=== PATIENT | male | born 1935 | race Caucasian/White ===

== ENCOUNTER → 2017-12-09 11:30 | Outpatient (CLI) | payer MEDICARE, SELFPAY ==
[2017-12-09 13:09] LABS: Free T3, Triiodothyronine Free 3.87 pg/mL (2.77-5.27)
[2017-12-09 13:23] LABS: Thyroid Stimulating Hormone 3.06 uIU/mL (0.47-4.68)
== END ==
PROVIDERS: Family Provider Physician Assistant; PCP Physician Assistant; Visit Provider Physician Assistant
DX: E03.9 Hypothyroidism, unspecified (principal)
CPT/HCPCS: 36415; 84443; 84481

== ENCOUNTER → 2018-02-23 13:15 | Outpatient (CLI) | payer MEDICARE, SELFPAY ==
[2018-02-23 13:58] LABS: Add Manual Diff / Slide Review NO; Eosinophils Percent Auto 2.2 % (2-4); Hemoglobin 15.3 g/dL (13.5-17.5); Lymphocytes Percent Auto 21.5 % (25-40); Mean Corpuscular HGB Conc 34.1 % (30-36); Mean Corpuscular Hemoglobin 32.5 PG (26-34); Mean Corpuscular Volume 95.3 fL (80-100); Monocytes Percent Auto 8.3 % (3-14); Neutrophils Absolute Auto 3900 /uL (3000-5900); Platelet Count 203 X10^3/uL (150-400); Red Blood Cell Count 4.72 X10^6/uL (4.5-5.9); Red Cell Distribution Width 13.7 % (11.6-14.8); White Blood Cell Count 5.8 X10^3/uL (4.5-11.0)
[2018-02-23 14:19] LABS: Alanine Aminotransferase 24 IU/L (21-72); Albumin 4.2 g/dL (3.5-5.0); Albumin Globulin Ratio 1.6 (1.0-2.8); Alkaline Phosphatase 47 U/L (38-126); Aspartate Aminotransferase 28 IU/L (17-59); Bilirubin Total 0.8 mg/dL (0.2-1.3); Blood Urea Nitrogen 27 mg/dL (9-20); Calcium 8.9 mg/dL (8.4-10.2); Carbon Dioxide 30 mmol/L (22-32); Chloride 104 mmol/L (98-107); Estimated Glomerular Filt Rate > 60.0 mL/min (>60); Globulin 2.6 g/dL (1.7-4.1); Glucose 93 mg/dL (80-110); HEMOLYSIS 17 (0-50); Potassium 4.6 mmol/L (3.4-5.1); Sodium 143 mmol/L (137-145); Total Protein 6.8 g/dL (6.3-8.2)
[2018-02-23 14:50] LABS: TSH w/ Reflex to FT4 2.49 uIU/mL (0.47-4.68)
== END ==
PROVIDERS: PCP Physician Assistant
DX: R25.8 Other abnormal involuntary movements (principal)
CPT/HCPCS: 36415; 80053; 84443; 85025

== ENCOUNTER 2018-03-18 19:34 | Emergency (ER) | payer MEDICARE, SELFPAY ==
[2018-03-18 19:35] VITALS: BP 199/69; PULSE 72; RESP 18; TEMP 36.7; O2SAT 98; BMI 22.2
--- NOTE | 2018-03-18 19:58 | DI.CT.S_ITS ---
PROCEDURE: CT HEAD/BRAIN WO CON INDICATIONS: left visual field cut TECHNIQUE: Noncontrast 4.5 mm thick angled axial sections acquired from the foramen magnum to the vertex, with coronal and sagittal reformats. For radiation dose reduction, the following was used: automated exposure control, adjustment of mA and/or kV according to patient size. COMPARISON: None. FINDINGS: Image quality: Excellent. CSF spaces: Basal cisterns are patent. No extra-axial fluid collections. The ventricles are symmetric in size and shape. There is [id number] cerebral volume loss, with resultant ventricular and sulcal prominence. Brain: No intracranial hemorrhage, mass, or mass effect. There are subcortical, periventricular and deep white matter hypodensities consistent with mild chronic small vessel ischemic changes. The thornton-white matter junction appears preserved. There is intracranial internal carotid artery atherosclerosis. No mass lesion demonstrated in the region of the optic chiasm. Skull and face: Calvarium and visualized facial bones appear intact, without suspicious lesions. Visualized orbits appear within normal limits without fluid collections or mass lesions. Sinuses: Visualized sinuses and mastoids are clear. IMPRESSION: 1. No acute intracranial abnormality. 2. Mild to moderate cerebral volume loss and mild chronic right white matter small vessel ischemic changes. Dictated by: William Yeh M.D. on 03/18/2018 at 20:27 Approved by: William Yeh M.D. on 03/18/2018 at 20:29
--- NOTE | 2018-03-18 20:04 | PC.NURSE ---
Recent dx of Parkinson's, known ataxia of limbs. states pt has had 2 falls the past week. No facial droop noted, equal strength in all extremities, no change in senstation. Pt states he had vision loss yesterday but denies any changes in vision at this time.
--- NOTE | 2018-03-18 20:12 | ED_ITS ---
HPI - Neuro Symptoms/Deficit General Chief Complaint: Neuro Symptoms/Deficit Stated Complaint: elevated blood pressure,unsteady,cant stand Time Seen by Provider: 03/18/18 19:57 Source: patient and family Mode of arrival: ambulatory Limitations: other ( Memory deficit) History of Present Illness HPI Narrative: The patient has Parkinson's. His baseline is he is ambulatory and lives at home with his family. He has memory deficits. He is here now due to 2 problems. He has fallen 2 times in the last 4 days. This is not normal for him. He has no pain or injury from the falls. Also, yesterday, he had a left visual field deficit. That deficit has now resolved. Although he has confusion, he does answer questions. He has Parkinson's, but no history of stroke. He has no chest pain, palpitations or dyspnea. He has no focal weakness at this time. He has no history of hypertension, and is on no meds for such. His tells me his blood pressure is normally about 140 at home when she does check it. However, his blood pressure was elevated today, she gave him lisinopril. He has had no fever or recent illness. He apparently underwent an MRI, his is uncertain of the exact findings, there was nothing obviously acute. I suggested atrophic changes, she seems to think that is what the MRI report. On Anticoagulants: No Related Data Home Medications Medication Instructions Recorded Confirmed multivitamin [Multiple Vitamins] 1 tab PO QDAY #0 tab 02/28/16 03/18/18 [tumeric] #0 12/24/16 03/08/18 cholecalciferol (vitamin D3) 5,000 units PO DAILY #0 12/24/16 03/18/18 [Vitamin D3] Disabled Parking Permit 1 ea 03/18/18 Previous Rx's Medication Instructions Recorded thyroid (pork) [Mathews Thyroid] 60 mg PO QDAY #90 tab 07/01/17 modafinil 100 mg tablet 100 mg PO Q DAY #30 tab 11/26/17 carbidopa 25 mg-levodopa 100 mg 1 tab PO TID 30 Days #90 tab 02/23/18 tablet Allergies Allergy/AdvReac Type Severity Reaction Status Date / Time iodine [IODINE] Allergy Mild Rash and Verified 03/18/18 19:47 itching mercury (elemental) Allergy Mild Rash Verified 03/18/18 19:47 [MERCURY (ELEMENTAL)] Review of Systems Review of Systems All systems reviewed & are unremarkable except as noted in HPI and below Constitutional Denies chills, Denies fever(s), Denies lethargy and Denies weakness Eyes Denies eye discharge, Denies irritation and Reports loss of vision ENT Ears, Nose, Mouth, and Throat: Denies change in voice and Denies sore throat Cardiovascular Denies chest pain, Denies irregular heart rhythm, Denies lightheadedness, Denies palpitations and Denies dyspnea Respiratory Denies cough and Denies dyspnea Gastrointestinal Gastrointestinal: Denies abdominal pain, Denies change in bowel habits, Denies diarrhea, Denies nausea and Denies vomiting Musculoskeletal Reports other ( No injuries. No weakness.) Integumentary/Breasts Denies erythema, Denies rash, Denies wounds and Reports other ( No superficial injuries.) Neurologic Reports as per HPI, Reports loss of vision and Denies weakness Endocrine Denies palpitations PFSH Medical History Parkinson disease (Acute) BPH (benign prostatic hyperplasia) (Chronic 2011) Cold hands and feet (Chronic) Hearing loss (Chronic 2011) Hypothyroidism (Chronic Unknown) Low testosterone (Chronic Unknown) Memory loss (Chronic) No sense of smell (Chronic) Peripheral neuropathy (Chronic ~2013) Vertigo (Chronic 2011) Chickenpox (Resolved) Colon polyps (Resolved 2011) Elevated cortisol level (Resolved 01/2016) Melanoma (Resolved ~03/2017) Shoulder pain (Resolved 2015) Skin lesions (Resolved) Surgical History Hx of melanoma excision (Resolved 03/2017) Status post appendectomy (~1947) Family History Family/Other Lupus Father No problems noted. Mother No problems noted. Social History Smoking Status: Never smoker second hand exposure: No alcohol intake: former (social drinker in the past.) substance use type: does not use Exam Initial Vital Signs Initial Vital Signs: Vital Signs Temperature 98.0 F 03/18/18 19:35 Pulse Rate 72 03/18/18 19:35 Respiratory Rate 18 03/18/18 19:35 Blood Pressure 199/69 H 03/18/18 19:35 Pulse Oximetry 98 03/18/18 19:35 Const General: cooperative and well developed Nutritional Appearance: well nourished Orientation: alert, awake and oriented to person ( Person and place.) [facility] Head: normal to inspection, normocephalic and atraumatic Ears: TM's normal bilaterally Nose: external nose normal Face and sinus: face symmetric Mouth: oral mucosae normal and moist mucous membranes Throat: posterior oropharynx normal Eyes General: appearance normal, both eyes and all related structures Visual Castro: normal visual castro by confrontation Eyelids: eyelids normal Conjunctivae: conjunctivae normal Sclera: sclerae normal Pupils: PERRL EOM: EOM intact bilaterally Neck Neck: normal visual inspection, trachea midline, No lymphadenopathy, No midline deformity and No JVD Thyroid: thyroid normal Chest Chest: normal inspection of the chest Resp Effort & Inspection: normal respiratory effort and able to speak in complete sentences Auscultation: clear to auscultation bilaterally Cardio Rate: regular rate Rhythm: regular rhythm Heart Sounds: no click, no gallops, no murmurs and no rubs Pulses: normal peripheral pulses GI Inspection: non-distended Palpation: soft, no hepatosplenomegaly, No guarding, No pulsatile mass and No tender Auscultation: normal bowel sounds Back/Spine/Pelvis Back: No CVA tenderness Cervical Spine: cervical ROM normal Thoracic/Lumbar Spine: thoracic and lumbar spine normal to inspection Skin General: no rashes or lesions noted Neuro General: alert, oriented ( Person and place), gait normal and no focal motor deficits Speech: speech normal Gait: ataxic Extrem General: full ROM, no clubbing, cyanosis or edema, no pedal edema and no calf tenderness Psych Appearance: well kempt Mental Status: mental status grossly normal Attitude: cooperative Thought Content: normal and suicidality Scores NIH Stroke Scale Level of Conciousness: Alert, keenly responsive Ask month/age: Answers both questions correctly. ( he is at baseline orientation.) Open/close eyes, close hand: Performs both tasks correctly Best gaze horizontal: Normal Visual castro: No visual loss Facial palsy: Normal symetrical movement Left arm drift: No drift for full 10 sec Right arm drift: No drift for full 10 sec Left leg drift: No drift for full 10 sec Right leg drift: No drift for full 10 sec Limb ataxia: Absent Sensory on face/arms/legs: Normal, no sensory loss Best language: No aphasia, normal Dysarthria: Normal Extinction or inattention: No abnormality Total NIH Stroke scale score: 0 Course Orders Ordered: ED Orders 03/18/18 19:58 CT head/brain wo con Stat EKG-12 Lead Stat 03/18/18 20:00 Basic Metabolic Panel Stat Complete Blood Count AUTO DIFF Stat Partial Thromboplastin Time Stat Prothrombin Time INR Stat Discontinued Medications Aspirin (Aspirin Chew) 324 mg PO NOW ONE Stop: 03/18/18 21:34 Last Admin: 03/18/18 22:01 Dose: Vital Signs - 8 hr 03/18/18 19:35 03/18/18 20:27 03/18/18 21:02 Temperature 98.0 F Pulse Rate 72 70 64 Respiratory Rate 18 14 17 Blood Pressure 199/69 H Blood Pressure [Left Arm] 163/56 H Pulse Oximetry 98 98 96 03/18/18 22:06 Temperature Pulse Rate 65 Respiratory Rate 16 Blood Pressure 163/56 H Blood Pressure [Left Arm] Pulse Oximetry 96 MDM - Neuro Symptoms/Deficit Lab Data Result diagrams: 03/18/18 20:00 03/18/18 20:00 Lab Results 03/18/18 03/18/18 03/18/18 Range/Units 20:00 20:00 20:00 WBC 5.8 (4.5-11.0) X10^3/uL RBC 4.68 (4.5-5.9) X10^6/uL Hgb 15.1 (13.5-17.5) g/dL Hct 44.2 (41-53) % MCV 94.4 (80-100) fL MCH 32.3 (26-34) PG MCHC 34.2 (30-36) % RDW 13.6 (11.6-14.8) % Plt Count 189 (150-400) X10^3/uL Neut % (Auto) 53.3 (50-75) % Lymph % (Auto) 30.6 (25-40) % Robeson % (Auto) 10.1 (3-14) % Eos % (Auto) 4.8 H (2-4) % Baso % (Auto) 1.2 (0-2) % Neut # (Auto) 3100 (7967-9629) /uL PT 11.5 (10.1-12.7) SECONDS INR 1.1 (0.9-1.3) APTT 28 (26.4-36.2) SECONDS Sodium 143 (137-145) mmol/L Potassium 4.4 (3.4-5.1) mmol/L Chloride 106 (98-107) mmol/L Carbon Dioxide 26 (22-32) mmol/L BUN 27 H (9-20) mg/dL Creatinine 0.80 (0.66-1.25) mg/dL Estimated GFR > 60.0 (>60) mL/min BUN/Creatinine Ratio 33.8 H (6-22) Glucose 117 H (80-110) mg/dL Calcium 8.6 (8.4-10.2) mg/dL Imaging Data CT scan - head: Radiologist's impression: 1. No acute intracranial abnormality. 2. Mild to moderate cerebral volume loss and mild chronic right white matter small vessel ischemic changes. ECG Data Attestation: I personally reviewed and interpreted this ECG as follows: ( Normal sinus rhythm rate 71 bpm. Intervals are normal.. No ectopy. No ST changes.) MDM Narrative Medical decision making narrative: The patient had an outpatient MRI recently in [place], [place]. I am unable to access those records at this time. His does not think the results for any different than what I described tonight. We discussed admission for possible TIA. The patient was ambulatory with great success with a walker. His would prefer him to be at home, she will obtain a walker for him there. I have advised starting baby aspirin once daily. I have advised follow-up with their primary care doctor to review the outpatient MRI and his current status. Discharge Plan Departure Patient Disposition: Home Clinical Impression: Ataxia, Vision changes Discharge Date/Time: 03/18/18 21:45 Interventions: ED Discharge Assessment Last Done: 03/18/18 22:06 Instructions: DI for Visual Field Disturbances Activity Restrictions/Additional Instructions: With these issues described, he may have had a mini-stroke. It is impossible to tell. Baby aspirin 1 a day should be given. Follow up with her doctor, and reviewed the MRI done last week. I would recommend using a walker when he is up and about. I would recommend an ophthalmology appointment. I will give you contact for the local Occupational Health Manager, . Return to the ER as needed. Prescriptions: No Action modafinil 100 mg tablet 100 mg PO Q DAY Qty: 30 RF: 5 carbidopa-levodopa 25-100 mg tablet 1 tab PO TID 30 Days Qty: 90 RF: 2 multivitamin [Multiple Vitamins] 1 EACH tablet 1 tab PO QDAY Qty: 0 RF: 0 cholecalciferol (vitamin D3) [Vitamin D3] 4,000 UNIT capsule 5,000 units PO DAILY Qty: 0 RF: 0 [tumeric] Qty: 0 RF: 0 thyroid (pork) [Mathews Thyroid] 60 MG tablet 60 mg PO QDAY Qty: 90 RF: 3 Disabled Parking Permit 1 ea RF: 0 Referrals: Elsa Hanks MD [Physician] - Phoebe Rivera DO [Primary Care Provider] -
[2018-03-18 20:27] VITALS: PULSE 70; RESP 14; O2SAT 98
[2018-03-18 20:32] LABS: Add Manual Diff / Slide Review NO; Basophils Percent Auto 1.2 % (0-2); Eosinophils Percent Auto 4.8 % (2-4); Hematocrit 44.2 % (41-53); Hemoglobin 15.1 g/dL (13.5-17.5); Lymphocytes Percent Auto 30.6 % (25-40); Mean Corpuscular HGB Conc 34.2 % (30-36); Mean Corpuscular Hemoglobin 32.3 PG (26-34); Mean Corpuscular Volume 94.4 fL (80-100); Monocytes Percent Auto 10.1 % (3-14); Neutrophils Absolute Auto 3100 /uL (3000-5900); Neutrophils Percent Auto 53.3 % (50-75); Platelet Count 189 X10^3/uL (150-400); Red Blood Cell Count 4.68 X10^6/uL (4.5-5.9); Red Cell Distribution Width 13.6 % (11.6-14.8); White Blood Cell Count 5.8 X10^3/uL (4.5-11.0)
[2018-03-18 20:41] LABS: INR 1.1 (0.9-1.3); Prothrombin Time 11.5 SECONDS (10.1-12.7)
[2018-03-18 20:44] LABS: PTT Partial Thromboplastin Tim 28 SECONDS (26.4-36.2)
[2018-03-18 20:45] LABS: BUN Creatinine Ratio 33.8 (6-22); Blood Urea Nitrogen 27 mg/dL (9-20); Calcium 8.6 mg/dL (8.4-10.2); Carbon Dioxide 26 mmol/L (22-32); Chloride 106 mmol/L (98-107); Estimated Glomerular Filt Rate > 60.0 mL/min (>60); Glucose 117 mg/dL (80-110); HEMOLYSIS 70 (0-50); Potassium 4.4 mmol/L (3.4-5.1); Sodium 143 mmol/L (137-145)
[2018-03-18 21:02] VITALS: BP 163/56; PULSE 64; RESP 17; O2SAT 96
--- NOTE | 2018-03-18 21:24 | PC.NURSE ---
assisting pt w/using urinal. Refused RN help. Encourage family to call for help if needed.
[2018-03-18 22:06] VITALS: BP 163/56; PULSE 65; RESP 16; O2SAT 96
== END 2018-03-18 21:45 | disposition home or self-care (01) ==
PROVIDERS: Emergency Provider Emergency Medicine; Family Provider Physician Assistant; PCP Family Medicine
DX: R27.0 Ataxia, unspecified (principal); G20 Parkinson's disease; H53.9 Unspecified visual disturbance
CPT/HCPCS: 36591; 70450; 80048; 85025; 85610; 85730; 93005; 93010; 99283; 99284; 99291

== ENCOUNTER 2018-05-07 13:45 | Outpatient (RCR) | payer MEDICARE, SELFPAY ==
--- NOTE | 2017-12-30 14:18 | PT.OIE ---
Current Diagnoses Other abnormalities of gait and mobility (12/29/17) Unspecified abnormalities of gait and mobility (12/29/17) Past Surgical History (Last Reviewed 11/26/17 @ 15:53 by Judy Ji PA-C) Status post appendectomy Provider Visit Care Team Role Provider Type Judy Ji PA-C Attending Provider Advanced Practioner Clinician Family Provider Primary Care Provider Specialty: Family Practice Address: [address] [place] [address], [facility] Email: [email or web address] Physical Therapy Initial Evaluation PT-OP-A Visit Information Start: 12/30/17 09:37 Freq: Status: Active Protocol: Document 12/29/17 15:15 [facility] (Rec: 12/30/17 09:50 [facility] [email or web address]) Out-Patient Physical Therapy Visit Information Visit Information Visit Type Initial Evaluation Visit Start Time 15:15 Visit Stop Time 16:00 Total Visit Minutes 45 Visit Number 1 Evaluation Information Evaluation Date 12/29/17 PT-OP-B Current Condition Start: 12/30/17 09:37 Freq: Status: Active Protocol: Document 12/29/17 15:15 [facility] (Rec: 12/30/17 09:50 [facility] [email or web address]) Current Condition History of Current Condition Onset Date increased dizzyness and balance the past 2-3 years Current Complaints history of falls, dizzyness and poor balance History of Current Condition 82 year old male with complaints of dizzyness and balance issues worsening the past few years. He reports vertigo with looking down at times but notes today he is not experiencing this and that it will come and go. He has had a cevaluation for alzheimers and is shows increased cognitive decline and worsening gait instability . He relies on his 's arm for balance with walking and reports he does have walking sticks but does not use them much. Treatment Goals Patient/Caregiver Goals The patient and his are both present for PT and they state their goal is to help improve Heather's posture, gait and balance Prior Functional Status Baseline Function- ADL's Needs Assist Baseline Function- Mobility Needs Assist Current Functional Impairments (Reported) Functional Limitations- ADL's assist with donning and doffing shoes and at Functional Limitations- Mobility/Gait Min A with bed mobility, transfers, and gait from the patients Personal Factors Other Personal Factors That May Effect Progressing Alzheimer's Therapy/Recovery PT-OP-D Balance Start: 12/30/17 09:37 Freq: Status: Active Protocol: Document 12/30/17 09:51 [facility] (Rec: 12/30/17 09:57 [facility] [email or web address]) Balance Tests Engle Balance Test Engle Impairment Rating 40 to 59% Impaired (Score 23- 33) Engle Balance Assessment Evaluation Sitting to Standing Ability Minimal Assist Unsupported Stance Supervision- 2 minutes Sitting Unsupported, Feet on Floor Safely- 2 minutes Standing to Sitting Ability Assist, Control w/Hands Transfer Ability Supervision, Verbal Cues Unsupported Stance- Eyes Closed Supervision, 10 seconds Unsupported Stance- Eyes Open Supervision to maintain Reaching Forward Standing Supervision Needed Pick- Up Object From Floor Requires Supervision Look Behind Shoulder - Standing Turns Sideways Only Turning 360 Degrees Turns slowly, but safely Unsupported Stance, Alternating Feet on Assist to Prevent Fall Stair Unsupported Tandem Stance Balance Lost- Step/Stand Unilateral Leg Stance Lifts Leg/Unable to Hold Total Score Engle Total Score (out of 56 points) 26 Engle Impairment Rating 40 to 59% Impaired (Score 23- 33) PT-OP-G Mobility & Gait Start: 12/30/17 09:37 Freq: Status: Active Protocol: Document 12/30/17 09:51 [facility] (Rec: 12/30/17 09:57 [facility] [email or web address]) OP Mobility Evaluation Bed Mobility Rolling SBA Supine to and from Sit Min A Transfers Sit to Stand CGA OP Gait Assessment Gait Gait Assistance Required: Minimum Assistance 1 Person Assist Assistive Devices Assistive Device None Gait Deviations General Gait Pattern Decreased Stride Length Flexed Trunk Lateral Trunk Lean Factors Limiting Gait Function Factors Limiting Gait Function Decreased Strength Difficulty Following Directions Limited Range of Motion Poor Balance Poor Safety Awareness Comments Gait Comments Heather has been walking holding onto his 's arm for balance and has walking sticks but doesn't frequenty use then. He has taken frequent falls. His gait is slow and shuffling with flexed trunk and left lateral trunk lean. PT-OP-K Range of Motion Start: 12/30/17 09:37 Freq: Status: Active Protocol: Document 12/29/17 15:15 [facility] (Rec: 12/30/17 14:17 [facility] [email or web address]) Ankle and Foot Goniometric Range of Motion Ankle and Foot Measured in Degrees Right Ankle/Foot ROM WFL No Testing Position Supine Dorsiflexion with Knee Flexed 6 Dorsiflexion with Knee Extended 4 Plantarflexion 10 Left Ankle/Foot ROM WFL No Testing Position Supine Dorsiflexion with Knee Flexed 8 Dorsiflexion with Knee Extended 5 Plantarflexion 10 PT-OP-M Strength Start: 12/30/17 09:37 Freq: Status: Active Protocol: Document 12/29/17 15:15 [facility] (Rec: 12/30/17 14:17 [facility] [email or web address]) Ankle/Foot Strength Ankle and Foot Manual Muscle Testing Right Dorsiflexion (L4) 3 Fair Plantarflexion (S1) 3 Fair Inversion 4- Good- Eversion (S1) 4- Good- Left Dorsiflexion (L4) 3+ Fair+ Plantarflexion (S1) 3+ Fair+ Inversion 4 Good Eversion (S1) 4 Good PT-OP-Q Treatments Start: 12/30/17 09:37 Freq: Status: Active Protocol: Document 12/29/17 15:15 [facility] (Rec: 12/30/17 14:17 [facility] [email or web address]) Therapeutic Exercises Supine Exercises 1 Supine Exercise Name ankle DF/PF and ankle circles, calf stretch with towel Side bilateral Sitting Exercises 1 Sitting Exercise Name seated foot taps for ankle DF and seated TKE's Standing Exercises 1 Standing Exercise Name standing calf raises PT-OP-T Assessment and Plan Start: 12/30/17 09:37 Freq: Status: Active Protocol: Document 12/29/17 15:15 [facility] (Rec: 12/30/17 14:17 [facility] [email or web address]) Physical Therapy Assessment Rehab Potential Rehabilitation Potential Good Evaluation Complexity Number of Personal Factors/Comorbidities 1-2 Number of Body Systems Impaired 1-2 Clinical Presentation at Evaluation Evolving Impairments Impairments Activity Tolerance Balance Coordination Functional Activities Functional Mobility Gait Posture ROM Strength Tone Transfers Other Concerns Fall Risk yes Barriers to Rehabilitation progressing Alzheimer's Goals Four Impairment unable to perform sit-stand without use of hands Mcfp Goal (LTG) improve functional squat and balance improving ability for Heather to sit and stand without use of his hands Three Impairment poor postural habits contributing to forward trunk lean Nursing Clinical Director Goal (LTG) Heather is given a strengthening program for improved posture to decrease forward lean and decreased loss of balance in a forward direction Two Impairment antalgic gait pattern without use of an assistive device Short Term Goal (STG) Heather is in gait training with a FWW to help reduce risk of falls STG Duration 5 weeks One Impairment poor ankle ROM and calf tightness limiting ankle DF for gait/balance Short Term Goal (STG) Improve ankle ROM and calf flexibility to help improve ankle strategy for balance reactions STG Duration 5 weeks Assessment Summary Assessment Heather presents to physical therapy today with signs and symptoms of balance issues affecting his mobility. He has progressing Alzheimers and his is his primary palliative care coordinator. He requires assist with his transfers and gait from her. He is currently using her arm for support with gait. He has walking sticks but is not currently using them. He is able to follow some directions but not all and needed asssitance from his . He has a forward trunk lean, stiff trunk and slow shuffling gait. He also has limited ROM in his ankle joint and tightness in the calf musculature adding to his decreased balance reactions and shuffling gait. Treatment will focus on ankle ROM, flexibility, balance and gait training and postural training . His will be present for PT and will be helping him with his exercises at home. Physical Therapy Plan Frequency and Duration Frequency of Treatment 2x/Week Duration of Treatment 8 weeks Plan of Care Start Date 12/29/17 Plan of Care End Date 02/23/18 Therapeutic Interventions Therapeutic Interventions Balance Training Coordination Training Gait Training Home Exercise Program Neuromuscular Re-education Patient/Caregiver Education Self-Care/Home Management Therapeutic Exercises Next Visit Focus/Plan Next Note Type Treatment Note Next Visit Plan begin balance training and trial of gait training with FWW
--- NOTE | 2017-12-31 08:52 | PT.OPPOC ---
Current Diagnoses Other abnormalities of gait and mobility (12/29/17) Unspecified abnormalities of gait and mobility (12/29/17) Provider Visit Care Team Role Provider Type Judy Ji PA-C Attending Provider Advanced Practioner Clinician Family Provider Primary Care Provider Specialty: Family Practice Address: [address] [place] [address], [id number] Email: [email or web address] Plan Of Care PT-OP-T Assessment and Plan Start: 12/30/17 09:37 Freq: Status: Active Protocol: Document 12/29/17 15:15 [facility] (Rec: 12/30/17 14:17 [facility] [email or web address]) Physical Therapy Assessment Rehab Potential Rehabilitation Potential Good Evaluation Complexity Number of Personal Factors/Comorbidities 1-2 Number of Body Systems Impaired 1-2 Clinical Presentation at Evaluation Evolving Impairments Impairments Activity Tolerance Balance Coordination Functional Activities Functional Mobility Gait Posture ROM Strength Tone Transfers Other Concerns Fall Risk yes Barriers to Rehabilitation progressing Alzheimer's Goals Four Impairment unable to perform sit-stand without use of hands Retirement Goal (LTG) improve functional squat and balance improving ability for Heather to sit and stand without use of his hands Three Impairment poor postural habits contributing to forward trunk lean Retirement Goal (LTG) Heather is given a strengthening program for improved posture to decrease forward lean and decreased loss of balance in a forward direction Two Impairment antalgic gait pattern without use of an assistive device Short Term Goal (STG) Heather is in gait training with a FWW to help reduce risk of falls STG Duration 5 weeks One Impairment poor ankle ROM and calf tightness limiting ankle DF for gait/balance Short Term Goal (STG) Improve ankle ROM and calf flexibility to help improve ankle strategy for balance reactions STG Duration 5 weeks Assessment Summary Assessment Heather presents to physical therapy today with signs and symptoms of balance issues affecting his mobility. He has progressing Alzheimers and his is his primary client care representative. He requires assist with his transfers and gait from her. He is currently using her arm for support with gait. He has walking sticks but is not currently using them. He is able to follow some directions but not all and needed asssitance from his . He has a forward trunk lean, stiff trunk and slow shuffling gait. He also has limited ROM in his ankle joint and tightness in the calf musculature adding to his decreased balance reactions and shuffling gait. Treatment will focus on ankle ROM, flexibility, balance and gait training and postural training . His will be present for PT and will be helping him with his exercises at home. Physical Therapy Plan Frequency and Duration Frequency of Treatment 2x/Week Duration of Treatment 8 weeks Plan of Care Start Date 12/29/17 Plan of Care End Date 02/23/18 Therapeutic Interventions Therapeutic Interventions Balance Training Coordination Training Gait Training Home Exercise Program Neuromuscular Re-education Patient/Caregiver Education Self-Care/Home Management Therapeutic Exercises Next Visit Focus/Plan Next Note Type Treatment Note Next Visit Plan begin balance training and trial of gait training with FWW Plan of Care Dates Plan of Care Start Date 12/29/17 Plan of Care End Date 02/23/18 Please Sign and Return: I have reviewed this Plan of Care and certify that the skilled therapy services above are required to meet the patient?s needs. Physician Signature Date Printed Name and Credentials Clinical Instructor Signature Printed Name and Credentials
--- NOTE | 2017-12-31 15:16 | PT.OTN ---
Current Diagnoses Other abnormalities of gait and mobility (12/31/17) Unspecified abnormalities of gait and mobility (12/31/17) Physical Therapy Treatment Note PT-OP-A Visit Information Start: 12/30/17 09:37 Freq: Status: Active Protocol: Document 12/31/17 14:35 [facility] (Rec: 12/31/17 15:16 [facility] [email or web address]) Out-Patient Physical Therapy Visit Information Visit Information Visit Type Treatment Note Visit Start Time 13:45 Visit Stop Time 14:35 Total Visit Minutes 50 Visit Number 2 Number of SOFTWARE TEST ENGINEER Visits 0 Evaluation Information Evaluation Date 12/29/17 PT-OP-B Current Condition Start: 12/30/17 09:37 Freq: Status: Active Protocol: Document 12/29/17 15:15 [facility] (Rec: 12/30/17 09:50 [facility] [email or web address]) Current Condition History of Current Condition Onset Date increased dizzyness and balance the past 2-3 years Current Complaints history of falls, dizzyness and poor balance History of Current Condition 82 year old male with complaints of dizzyness and balance issues worsening the past few years. He reports vertigo with looking down at times but notes today he is not experiencing this and that it will come and go. He has had a cevaluation for alzheimers and is shows increased cognitive decline and worsening gait instability . He relies on his 's arm for balance with walking and reports he does have walking sticks but does not use them much. Treatment Goals Patient/Caregiver Goals The patient and his are both present for PT and they state their goal is to help improve Heather's posture, gait and balance Prior Functional Status Baseline Function- ADL's Needs Assist Baseline Function- Mobility Needs Assist Current Functional Impairments (Reported) Functional Limitations- ADL's assist with donning and doffing shoes and at Functional Limitations- Mobility/Gait Min A with bed mobility, transfers, and gait from the patients Personal Factors Other Personal Factors That May Effect Progressing Alzheimer's Therapy/Recovery PT-OP-C Subjective Start: 12/30/17 09:37 Freq: Status: Active Protocol: Document 12/31/17 14:35 [facility] (Rec: 12/31/17 15:16 [facility] [email or web address]) OP-PT Subjective Patient Comments Patient Comments Pt denies any pain. His states she is helping him with his HEP. PT-OP-D Balance Start: 12/30/17 09:37 Freq: Status: Active Protocol: Document 12/30/17 09:51 [facility] (Rec: 12/30/17 09:57 [facility] [email or web address]) Balance Tests Engle Balance Test Engle Impairment Rating 40 to 59% Impaired (Score 23- 33) Engle Balance Assessment Evaluation Sitting to Standing Ability Minimal Assist Unsupported Stance Supervision- 2 minutes Sitting Unsupported, Feet on Floor Safely- 2 minutes Standing to Sitting Ability Assist, Control w/Hands Transfer Ability Supervision, Verbal Cues Unsupported Stance- Eyes Closed Supervision, 10 seconds Unsupported Stance- Eyes Open Supervision to maintain Reaching Forward Standing Supervision Needed Pick- Up Object From Floor Requires Supervision Look Behind Shoulder - Standing Turns Sideways Only Turning 360 Degrees Turns slowly, but safely Unsupported Stance, Alternating Feet on Assist to Prevent Fall Stair Unsupported Tandem Stance Balance Lost- Step/Stand Unilateral Leg Stance Lifts Leg/Unable to Hold Total Score Engle Total Score (out of 56 points) 26 Engle Impairment Rating 40 to 59% Impaired (Score 23- 33) PT-OP-G Mobility & Gait Start: 12/30/17 09:37 Freq: Status: Active Protocol: Document 12/30/17 09:51 [facility] (Rec: 12/30/17 09:57 [facility] [email or web address]) OP Mobility Evaluation Bed Mobility Rolling SBA Supine to and from Sit Min A Transfers Sit to Stand CGA OP Gait Assessment Gait Gait Assistance Required: Minimum Assistance 1 Person Assist Assistive Devices Assistive Device None Gait Deviations General Gait Pattern Decreased Stride Length Flexed Trunk Lateral Trunk Lean Factors Limiting Gait Function Factors Limiting Gait Function Decreased Strength Difficulty Following Directions Limited Range of Motion Poor Balance Poor Safety Awareness Comments Gait Comments Heather has been walking holding onto his 's arm for balance and has walking sticks but doesn't frequenty use then. He has taken frequent falls. His gait is slow and shuffling with flexed trunk and left lateral trunk lean. PT-OP-K Range of Motion Start: 12/30/17 09:37 Freq: Status: Active Protocol: Document 12/29/17 15:15 [facility] (Rec: 12/30/17 14:17 [facility] [email or web address]) Ankle and Foot Goniometric Range of Motion Ankle and Foot Measured in Degrees Right Ankle/Foot ROM WFL No Testing Position Supine Dorsiflexion with Knee Flexed 6 Dorsiflexion with Knee Extended 4 Plantarflexion 10 Left Ankle/Foot ROM WFL No Testing Position Supine Dorsiflexion with Knee Flexed 8 Dorsiflexion with Knee Extended 5 Plantarflexion 10 PT-OP-M Strength Start: 12/30/17 09:37 Freq: Status: Active Protocol: Document 12/29/17 15:15 [facility] (Rec: 12/30/17 14:17 [facility] [email or web address]) Ankle/Foot Strength Ankle and Foot Manual Muscle Testing Right Dorsiflexion (L4) 3 Fair Plantarflexion (S1) 3 Fair Inversion 4- Good- Eversion (S1) 4- Good- Left Dorsiflexion (L4) 3+ Fair+ Plantarflexion (S1) 3+ Fair+ Inversion 4 Good Eversion (S1) 4 Good PT-OP-Q Treatments Start: 12/30/17 09:37 Freq: Status: Active Protocol: Document 12/31/17 14:35 [facility] (Rec: 12/31/17 15:16 [facility] [email or web address]) Therapeutic Exercises Sitting Exercises 2 Sitting Exercise Name W position for posture Side bilateral Reps/Minutes 1x10 Comments tactile, VC 1 Sitting Exercise Name seated foot taps for ankle Reps/Minutes 2x10 Gait Training Gait Activity 1 Description Heel-to-toe gait Device Used // bars Neuro Re-Education Treatment Balance Activities 4 Details Semi-tandem- EO Equipment standing bar 3 Details DL EO and EC narrow stand 2 Details DL standing Surface Turner foam Equipment // bars 1 Details Balance board- A/P and lateral Equipment // bars, balance board Comments EO, gait belt; requires UE support Self-Care/Home Management Treatment Education Patient Education Home Exercise Program Posture Caregiver Education How to use gait belt (given gait belt) PT-OP-T Assessment and Plan Start: 12/30/17 09:37 Freq: Status: Active Protocol: Document 12/31/17 14:35 [facility] (Rec: 12/31/17 15:16 [facility] [email or web address]) Physical Therapy Assessment Assessment Summary Assessment Pt with improved seated posture with cuing for chin/ head and scapular positioning. Pt tends to look down with standing and gait, likely due to he feels more comfortable seeing his feet with gait. Pt and given gait belt to perform standing balance at home. Pt may benefit from trial of assistive device for safety with gait. Physical Therapy Plan Frequency and Duration Frequency of Treatment 2x/Week Duration of Treatment 8 weeks Plan of Care Start Date 12/29/17 Plan of Care End Date 02/23/18 Next Visit Focus/Plan Next Note Type Treatment Note Next Visit Plan trial gait with SPC vs. walking sticks vs. FWW, prog. standing balance.
--- NOTE | 2018-01-06 14:30 | PT.OTN ---
Current Diagnoses Other abnormalities of gait and mobility (01/06/18) Unspecified abnormalities of gait and mobility (01/06/18) Physical Therapy Treatment Note PT-OP-A Visit Information Start: 12/30/17 09:37 Freq: Status: Active Protocol: Document 01/06/18 14:30 [facility] (Rec: 01/06/18 17:31 [facility] [email or web address]) Out-Patient Physical Therapy Visit Information Visit Information Visit Type Treatment Note Visit Start Time 13:45 Visit Stop Time 14:30 Total Visit Minutes 45 Visit Number 3 Number of COMPENSATION AND BENEFITS ADMINISTRATOR Visits 0 Evaluation Information Evaluation Date 12/29/17 PT-OP-B Current Condition Start: 12/30/17 09:37 Freq: Status: Active Protocol: Document 12/29/17 15:15 [facility] (Rec: 12/30/17 09:50 [facility] [email or web address]) Current Condition History of Current Condition Onset Date increased dizzyness and balance the past 2-3 years Current Complaints history of falls, dizzyness and poor balance History of Current Condition 82 year old male with complaints of dizzyness and balance issues worsening the past few years. He reports vertigo with looking down at times but notes today he is not experiencing this and that it will come and go. He has had a cevaluation for alzheimers and is shows increased cognitive decline and worsening gait instability . He relies on his 's arm for balance with walking and reports he does have walking sticks but does not use them much. Treatment Goals Patient/Caregiver Goals The patient and his are both present for PT and they state their goal is to help improve Jose Armandoe's posture, gait and balance Prior Functional Status Baseline Function- ADL's Needs Assist Baseline Function- Mobility Needs Assist Current Functional Impairments (Reported) Functional Limitations- ADL's assist with donning and doffing shoes and at Functional Limitations- Mobility/Gait Min A with bed mobility, transfers, and gait from the patients Personal Factors Other Personal Factors That May Effect Progressing Alzheimer's Therapy/Recovery PT-OP-C Subjective Start: 12/30/17 09:37 Freq: Status: Active Protocol: Document 01/06/18 14:30 [facility] (Rec: 01/06/18 17:31 [facility] [email or web address]) OP-PT Subjective Patient Comments Patient Comments Pt has been doing some of his HEP when his assists. PT-OP-D Balance Start: 06/20/18 09:37 Freq: Status: Active Protocol: Document 12/30/17 09:51 [facility] (Rec: 12/30/17 09:57 [facility] [email or web address]) Balance Tests Engle Balance Test Engle Impairment Rating 40 to 59% Impaired (Score 23- 33) Engle Balance Assessment Evaluation Sitting to Standing Ability Minimal Assist Unsupported Stance Supervision- 2 minutes Sitting Unsupported, Feet on Floor Safely- 2 minutes Standing to Sitting Ability Assist, Control w/Hands Transfer Ability Supervision, Verbal Cues Unsupported Stance- Eyes Closed Supervision, 10 seconds Unsupported Stance- Eyes Open Supervision to maintain Reaching Forward Standing Supervision Needed Pick- Up Object From Floor Requires Supervision Look Behind Shoulder - Standing Turns Sideways Only Turning 360 Degrees Turns slowly, but safely Unsupported Stance, Alternating Feet on Assist to Prevent Fall Stair Unsupported Tandem Stance Balance Lost- Step/Stand Unilateral Leg Stance Lifts Leg/Unable to Hold Total Score Engle Total Score (out of 56 points) 26 Engle Impairment Rating 40 to 59% Impaired (Score 23- 33) PT-OP-G Mobility & Gait Start: 12/30/17 09:37 Freq: Status: Active Protocol: Document 12/30/17 09:51 [facility] (Rec: 12/30/17 09:57 [facility] [email or web address]) OP Mobility Evaluation Bed Mobility Rolling SBA Supine to and from Sit Min A Transfers Sit to Stand CGA OP Gait Assessment Gait Gait Assistance Required: Minimum Assistance 1 Person Assist Assistive Devices Assistive Device None Gait Deviations General Gait Pattern Decreased Stride Length Flexed Trunk Lateral Trunk Lean Factors Limiting Gait Function Factors Limiting Gait Function Decreased Strength Difficulty Following Directions Limited Range of Motion Poor Balance Poor Safety Awareness Comments Gait Comments Heather has been walking holding onto his 's arm for balance and has walking sticks but doesn't frequenty use then. He has taken frequent falls. His gait is slow and shuffling with flexed trunk and left lateral trunk lean. PT-OP-K Range of Motion Start: 12/30/17 09:37 Freq: Status: Active Protocol: Document 12/29/17 15:15 [facility] (Rec: 12/30/17 14:17 [facility] [email or web address]) Ankle and Foot Goniometric Range of Motion Ankle and Foot Measured in Degrees Right Ankle/Foot ROM WFL No Testing Position Supine Dorsiflexion with Knee Flexed 6 Dorsiflexion with Knee Extended 4 Plantarflexion 10 Left Ankle/Foot ROM WFL No Testing Position Supine Dorsiflexion with Knee Flexed 8 Dorsiflexion with Knee Extended 5 Plantarflexion 10 PT-OP-M Strength Start: 12/30/17 09:37 Freq: Status: Active Protocol: Document 12/29/17 15:15 [facility] (Rec: 12/30/17 14:17 [facility] [email or web address]) Ankle/Foot Strength Ankle and Foot Manual Muscle Testing Right Dorsiflexion (L4) 3 Fair Plantarflexion (S1) 3 Fair Inversion 4- Good- Eversion (S1) 4- Good- Left Dorsiflexion (L4) 3+ Fair+ Plantarflexion (S1) 3+ Fair+ Inversion 4 Good Eversion (S1) 4 Good PT-OP-Q Treatments Start: 12/30/17 09:37 Freq: Status: Active Protocol: Document 01/06/18 14:30 [facility] (Rec: 01/06/18 17:31 [facility] [email or web address]) Gait Training Gait Activity 2 Description Forward and lateral gait over hurdles Device Used // bars 1 Description Heel-to-toe gait Device Used // bars Comments Forward, backward Neuro Re-Education Treatment Balance Activities 5 Details Standing shoulder rows Surface Firm Equipment L2 band Reps/Duration 20 reps 4 Details Semi-tandem- EO Equipment standing bar 1 Details Balance board- A/P and lateral Equipment // bars, balance board Comments EO, gait belt; requires UE support PT-OP-T Assessment and Plan Start: 12/30/17 09:37 Freq: Status: Active Protocol: Document 01/06/18 14:30 [facility] (Rec: 01/06/18 17:31 [facility] [email or web address]) Physical Therapy Assessment Goals Four Impairment unable to perform sit-stand without use of hands Air Sampling And Monitoring Goal (LTG) improve functional squat and balance improving ability for Heather to sit and stand without use of his hands Three Impairment poor postural habits contributing to forward trunk lean [facility] Goal (LTG) Heather is given a strengthening program for improved posture to decrease forward lean and decreased loss of balance in a forward direction Two Impairment antalgic gait pattern without use of an assistive device Short Term Goal (STG) Heather is in gait training with a FWW to help reduce risk of falls STG Duration 5 weeks One Impairment poor ankle ROM and calf tightness limiting ankle DF for gait/balance Short Term Goal (STG) Improve ankle ROM and calf flexibility to help improve ankle strategy for balance reactions STG Duration 5 weeks Assessment Summary Assessment Pt requires close guarding with standing dynamic balance, and demonstrates impaired bilateral foot placement going over hurdles. He requires continuous cuing for posture and head/eye positioning with standing. Physical Therapy Plan Frequency and Duration Frequency of Treatment 2x/Week Duration of Treatment 8 weeks Plan of Care Start Date 12/29/17 Plan of Care End Date 02/23/18 Next Visit Focus/Plan Next Note Type Treatment Note Next Visit Plan FWW handling/safety.
--- NOTE | 2018-01-08 14:31 | PT.OTN ---
Current Diagnoses Other abnormalities of gait and mobility (01/08/18) Unspecified abnormalities of gait and mobility (01/08/18) Physical Therapy Treatment Note PT-OP-A Visit Information Start: 12/30/17 09:37 Freq: Status: Active Protocol: Document 01/08/18 13:45 [facility] (Rec: 01/08/18 14:31 [facility] [id number]) Out-Patient Physical Therapy Visit Information Visit Information Visit Type Treatment Note Visit Start Time 13:45 Visit Stop Time 14:30 Total Visit Minutes 45 Visit Number 4 Number of HOSPITALIST Visits 0 Evaluation Information Evaluation Date 12/29/17 PT-OP-B Current Condition Start: 12/30/17 09:37 Freq: Status: Active Protocol: Document 12/29/17 15:15 [facility] (Rec: 12/30/17 09:50 [facility] [email or web address]) Current Condition History of Current Condition Onset Date increased dizzyness and balance the past 2-3 years Current Complaints history of falls, dizzyness and poor balance History of Current Condition 82 year old male with complaints of dizzyness and balance issues worsening the past few years. He reports vertigo with looking down at times but notes today he is not experiencing this and that it will come and go. He has had a cevaluation for alzheimers and is shows increased cognitive decline and worsening gait instability . He relies on his 's arm for balance with walking and reports he does have walking sticks but does not use them much. Treatment Goals Patient/Caregiver Goals The patient and his are both present for PT and they state their goal is to help improve Heather's posture, gait and balance Prior Functional Status Baseline Function- ADL's Needs Assist Baseline Function- Mobility Needs Assist Current Functional Impairments (Reported) Functional Limitations- ADL's assist with donning and doffing shoes and at Functional Limitations- Mobility/Gait Min A with bed mobility, transfers, and gait from the patients Personal Factors Other Personal Factors That May Effect Progressing Alzheimer's Therapy/Recovery PT-OP-C Subjective Start: 12/30/17 09:37 Freq: Status: Active Protocol: Document 01/08/18 13:45 [facility] (Rec: 01/08/18 14:31 [facility] [id number]) OP-PT Subjective Patient Comments Patient Comments Pt has done well with his HEP, per . Patient Reported Progress Improving PT-OP-D Balance Start: 12/30/17 09:37 Freq: Status: Active Protocol: Document 12/30/17 09:51 [facility] (Rec: 12/30/17 09:57 [facility] [email or web address]) Balance Tests Engle Balance Test Engle Impairment Rating 40 to 59% Impaired (Score 23- 33) Engle Balance Assessment Evaluation Sitting to Standing Ability Minimal Assist Unsupported Stance Supervision- 2 minutes Sitting Unsupported, Feet on Floor Safely- 2 minutes Standing to Sitting Ability Assist, Control w/Hands Transfer Ability Supervision, Verbal Cues Unsupported Stance- Eyes Closed Supervision, 10 seconds Unsupported Stance- Eyes Open Supervision to maintain Reaching Forward Standing Supervision Needed Pick- Up Object From Floor Requires Supervision Look Behind Shoulder - Standing Turns Sideways Only Turning 360 Degrees Turns slowly, but safely Unsupported Stance, Alternating Feet on Assist to Prevent Fall Stair Unsupported Tandem Stance Balance Lost- Step/Stand Unilateral Leg Stance Lifts Leg/Unable to Hold Total Score Engle Total Score (out of 56 points) 26 Engle Impairment Rating 40 to 59% Impaired (Score 23- 33) PT-OP-G Mobility & Gait Start: 12/30/17 09:37 Freq: Status: Active Protocol: Document 12/30/17 09:51 [facility] (Rec: 12/30/17 09:57 [facility] [email or web address]) OP Mobility Evaluation Bed Mobility Rolling SBA Supine to and from Sit Min A Transfers Sit to Stand CGA OP Gait Assessment Gait Gait Assistance Required: Minimum Assistance 1 Person Assist Assistive Devices Assistive Device None Gait Deviations General Gait Pattern Decreased Stride Length Flexed Trunk Lateral Trunk Lean Factors Limiting Gait Function Factors Limiting Gait Function Decreased Strength Difficulty Following Directions Limited Range of Motion Poor Balance Poor Safety Awareness Comments Gait Comments Heather has been walking holding onto his 's arm for balance and has walking sticks but doesn't frequenty use then. He has taken frequent falls. His gait is slow and shuffling with flexed trunk and left lateral trunk lean. PT-OP-K Range of Motion Start: 12/30/17 09:37 Freq: Status: Active Protocol: Document 12/29/17 15:15 [facility] (Rec: 12/30/17 14:17 [facility] [email or web address]) Ankle and Foot Goniometric Range of Motion Ankle and Foot Measured in Degrees Right Ankle/Foot ROM WFL No Testing Position Supine Dorsiflexion with Knee Flexed 6 Dorsiflexion with Knee Extended 4 Plantarflexion 10 Left Ankle/Foot ROM WFL No Testing Position Supine Dorsiflexion with Knee Flexed 8 Dorsiflexion with Knee Extended 5 Plantarflexion 10 PT-OP-M Strength Start: 12/30/17 09:37 Freq: Status: Active Protocol: Document 12/29/17 15:15 [facility] (Rec: 12/30/17 14:17 [facility] [email or web address]) Ankle/Foot Strength Ankle and Foot Manual Muscle Testing Right Dorsiflexion (L4) 3 Fair Plantarflexion (S1) 3 Fair Inversion 4- Good- Eversion (S1) 4- Good- Left Dorsiflexion (L4) 3+ Fair+ Plantarflexion (S1) 3+ Fair+ Inversion 4 Good Eversion (S1) 4 Good PT-OP-Q Treatments Start: 12/30/17 09:37 Freq: Status: Active Protocol: Document 01/08/18 13:45 [facility] (Rec: 01/08/18 14:31 DCW [id number]) Gait Training Gait Activity 3 Device Used Side-stepping Level of Assistance // bars 2 Description Forward and lateral gait over hurdles Device Used // bars 1 Description Heel-to-toe gait Device Used // bars Comments Forward, backward Neuro Re-Education Treatment Balance Activities 4 Details Semi-tandem- EO Equipment standing bar 3 Details DL EO and EC narrow stand 2 Details DL standing Surface Turner foam Equipment // bars PT-OP-T Assessment and Plan Start: 12/30/17 09:37 Freq: Status: Active Protocol: Document 01/08/18 13:45 [facility] (Rec: 01/08/18 14:31 [facility] [id number]) Physical Therapy Assessment Impairments Impairments Activity Tolerance Balance Coordination Functional Activities Functional Mobility Gait Posture ROM Strength Tone Transfers Goals Four Impairment unable to perform sit-stand without use of hands Financial Reporting Manager Goal (LTG) improve functional squat and balance improving ability for Heather to sit and stand without use of his hands Three Impairment poor postural habits contributing to forward trunk lean Financial Reporting Manager Goal (LTG) Heather is given a strengthening program for improved posture to decrease forward lean and decreased loss of balance in a forward direction Two Impairment antalgic gait pattern without use of an assistive device Short Term Goal (STG) Heather is in gait training with a FWW to help reduce risk of falls STG Duration 5 weeks One Impairment poor ankle ROM and calf tightness limiting ankle DF for gait/balance Short Term Goal (STG) Improve ankle ROM and calf flexibility to help improve ankle strategy for balance reactions STG Duration 5 weeks Assessment Summary Assessment Pt doing well with balance training, able to stand double leg with eyes closed and no UE support. Physical Therapy Plan Frequency and Duration Frequency of Treatment 2x/Week Duration of Treatment 8 weeks Plan of Care Start Date 12/29/17 Plan of Care End Date 02/23/18 Therapeutic Interventions Therapeutic Interventions Balance Training Coordination Training Gait Training Home Exercise Program Neuromuscular Re-education Patient/Caregiver Education Self-Care/Home Management Therapeutic Exercises Next Visit Focus/Plan Next Note Type Treatment Note Next Visit Plan FWW handling/safety.
--- NOTE | 2018-01-11 16:02 | PT.OTN ---
Current Diagnoses Other abnormalities of gait and mobility (01/11/18) Unspecified abnormalities of gait and mobility (01/11/18) Physical Therapy Treatment Note PT-OP-A Visit Information Start: 12/30/17 09:37 Freq: Status: Active Protocol: Document 01/11/18 15:15 [facility] (Rec: 01/11/18 16:02 [facility] [id number]) Out-Patient Physical Therapy Visit Information Visit Information Visit Type Treatment Note Visit Start Time 15:15 Visit Stop Time 16:00 Total Visit Minutes 45 Visit Number 5 Number of CONSERVATION SPECIALIST Visits 0 Evaluation Information Evaluation Date 12/29/17 PT-OP-B Current Condition Start: 12/30/17 09:37 Freq: Status: Active Protocol: Document 12/29/17 15:15 [facility] (Rec: 12/30/17 09:50 [facility] [email or web address]) Current Condition History of Current Condition Onset Date increased dizzyness and balance the past 2-3 years Current Complaints history of falls, dizzyness and poor balance History of Current Condition 82 year old male with complaints of dizzyness and balance issues worsening the past few years. He reports vertigo with looking down at times but notes today he is not experiencing this and that it will come and go. He has had a cevaluation for alzheimers and is shows increased cognitive decline and worsening gait instability . He relies on his 's arm for balance with walking and reports he does have walking sticks but does not use them much. Treatment Goals Patient/Caregiver Goals The patient and his are both present for PT and they state their goal is to help improve Heather's posture, gait and balance Prior Functional Status Baseline Function- ADL's Needs Assist Baseline Function- Mobility Needs Assist Current Functional Impairments (Reported) Functional Limitations- ADL's assist with donning and doffing shoes and at Functional Limitations- Mobility/Gait Min A with bed mobility, transfers, and gait from the patients Personal Factors Other Personal Factors That May Effect Progressing Alzheimer's Therapy/Recovery PT-OP-C Subjective Start: 12/30/17 09:37 Freq: Status: Active Protocol: Document 01/11/18 15:15 [facility] (Rec: 01/11/18 16:02 [facility] [id number]) OP-PT Subjective Patient Comments Patient Comments Pt notes he is feeling very good today. PT-OP-D Balance Start: 12/30/17 09:37 Freq: Status: Active Protocol: Document 12/30/17 09:51 [facility] (Rec: 12/30/17 09:57 [facility] [email or web address]) Balance Tests Engle Balance Test Engle Impairment Rating 40 to 59% Impaired (Score 23- 33) Engle Balance Assessment Evaluation Sitting to Standing Ability Minimal Assist Unsupported Stance Supervision- 2 minutes Sitting Unsupported, Feet on Floor Safely- 2 minutes Standing to Sitting Ability Assist, Control w/Hands Transfer Ability Supervision, Verbal Cues Unsupported Stance- Eyes Closed Supervision, 10 seconds Unsupported Stance- Eyes Open Supervision to maintain Reaching Forward Standing Supervision Needed Pick- Up Object From Floor Requires Supervision Look Behind Shoulder - Standing Turns Sideways Only Turning 360 Degrees Turns slowly, but safely Unsupported Stance, Alternating Feet on Assist to Prevent Fall Stair Unsupported Tandem Stance Balance Lost- Step/Stand Unilateral Leg Stance Lifts Leg/Unable to Hold Total Score Engle Total Score (out of 56 points) 26 Engle Impairment Rating 40 to 59% Impaired (Score 23- 33) PT-OP-G Mobility & Gait Start: 12/30/17 09:37 Freq: Status: Active Protocol: Document 12/30/17 09:51 [facility] (Rec: 12/30/17 09:57 [facility] [email or web address]) OP Mobility Evaluation Bed Mobility Rolling SBA Supine to and from Sit Min A Transfers Sit to Stand CGA OP Gait Assessment Gait Gait Assistance Required: Minimum Assistance 1 Person Assist Assistive Devices Assistive Device None Gait Deviations General Gait Pattern Decreased Stride Length Flexed Trunk Lateral Trunk Lean Factors Limiting Gait Function Factors Limiting Gait Function Decreased Strength Difficulty Following Directions Limited Range of Motion Poor Balance Poor Safety Awareness Comments Gait Comments Heather has been walking holding onto his 's arm for balance and has walking sticks but doesn't frequenty use then. He has taken frequent falls. His gait is slow and shuffling with flexed trunk and left lateral trunk lean. PT-OP-K Range of Motion Start: 12/30/17 09:37 Freq: Status: Active Protocol: Document 12/29/17 15:15 [facility] (Rec: 12/30/17 14:17 [facility] [email or web address]) Ankle and Foot Goniometric Range of Motion Ankle and Foot Measured in Degrees Right Ankle/Foot ROM WFL No Testing Position Supine Dorsiflexion with Knee Flexed 6 Dorsiflexion with Knee Extended 4 Plantarflexion 10 Left Ankle/Foot ROM WFL No Testing Position Supine Dorsiflexion with Knee Flexed 8 Dorsiflexion with Knee Extended 5 Plantarflexion 10 PT-OP-M Strength Start: 12/30/17 09:37 Freq: Status: Active Protocol: Document 12/29/17 15:15 [facility] (Rec: 12/30/17 14:17 [facility] [email or web address]) Ankle/Foot Strength Ankle and Foot Manual Muscle Testing Right Dorsiflexion (L4) 3 Fair Plantarflexion (S1) 3 Fair Inversion 4- Good- Eversion (S1) 4- Good- Left Dorsiflexion (L4) 3+ Fair+ Plantarflexion (S1) 3+ Fair+ Inversion 4 Good Eversion (S1) 4 Good PT-OP-Q Treatments Start: 12/30/17 09:37 Freq: Status: Active Protocol: Document 01/11/18 15:15 [facility] (Rec: 01/11/18 16:02 DCW [id number]) Gait Training Gait Activity 3 Device Used Side-stepping Level of Assistance // bars 2 Description Forward and lateral gait over hurdles Device Used // bars Comments Verbal cues for foot placement , sequencing 1 Description Heel-to-toe gait Device Used // bars Comments Forward, backward Neuro Re-Education Treatment Balance Activities 2 Details DL standing Surface Turner foam Equipment // bars 1 Details Balance board- A/P and lateral Equipment // bars, balance board Comments EO, gait belt; requires UE support PT-OP-T Assessment and Plan Start: 12/30/17 09:37 Freq: Status: Active Protocol: Document 01/11/18 15:15 [facility] (Rec: 01/11/18 16:02 DCW [id number]) Physical Therapy Assessment Impairments Impairments Activity Tolerance Balance Coordination Functional Activities Functional Mobility Gait Posture ROM Strength Tone Transfers Goals Four Impairment unable to perform sit-stand without use of hands Intermediate Goal (LTG) improve functional squat and balance improving ability for Heather to sit and stand without use of his hands Three Impairment poor postural habits contributing to forward trunk lean Intermediate Goal (LTG) Heather is given a strengthening program for improved posture to decrease forward lean and decreased loss of balance in a forward direction Two Impairment antalgic gait pattern without use of an assistive device Short Term Goal (STG) Heather is in gait training with a FWW to help reduce risk of falls STG Duration 5 weeks One Impairment poor ankle ROM and calf tightness limiting ankle DF for gait/balance Short Term Goal (STG) Improve ankle ROM and calf flexibility to help improve ankle strategy for balance reactions STG Duration 5 weeks Assessment Summary Assessment Pt required nearly constant verbal cues for foot placement and step length during all balance activities in the // bars. Physical Therapy Plan Frequency and Duration Frequency of Treatment 2x/Week Duration of Treatment 8 weeks Plan of Care Start Date 12/29/17 Plan of Care End Date 02/23/18 Therapeutic Interventions Therapeutic Interventions Balance Training Coordination Training Gait Training Home Exercise Program Neuromuscular Re-education Patient/Caregiver Education Self-Care/Home Management Therapeutic Exercises Next Visit Focus/Plan Next Note Type Treatment Note Next Visit Plan FWW handling/safety.
--- NOTE | 2018-01-14 15:20 | PT.OTN ---
Current Diagnoses Other abnormalities of gait and mobility (01/14/18) Unspecified abnormalities of gait and mobility (01/14/18) Physical Therapy Treatment Note PT-OP-A Visit Information Start: 12/30/17 09:37 Freq: Status: Active Protocol: Document 01/14/18 15:20 [facility] (Rec: 01/14/18 15:58 [facility] [email or web address]) Out-Patient Physical Therapy Visit Information Visit Information Visit Type Treatment Note Visit Start Time 14:35 Visit Stop Time 15:20 Total Visit Minutes 45 Visit Number 6 Number of STEAM HAMMER OPERATOR Visits 0 Evaluation Information Evaluation Date 12/29/17 PT-OP-B Current Condition Start: 12/30/17 09:37 Freq: Status: Active Protocol: Document 12/29/17 15:15 [facility] (Rec: 12/30/17 09:50 [facility] [email or web address]) Current Condition History of Current Condition Onset Date increased dizzyness and balance the past 2-3 years Current Complaints history of falls, dizzyness and poor balance History of Current Condition 82 year old male with complaints of dizzyness and balance issues worsening the past few years. He reports vertigo with looking down at times but notes today he is not experiencing this and that it will come and go. He has had a cevaluation for alzheimers and is shows increased cognitive decline and worsening gait instability . He relies on his 's arm for balance with walking and reports he does have walking sticks but does not use them much. Treatment Goals Patient/Caregiver Goals The patient and his are both present for PT and they state their goal is to help improve Jose Armandoe's posture, gait and balance Prior Functional Status Baseline Function- ADL's Needs Assist Baseline Function- Mobility Needs Assist Current Functional Impairments (Reported) Functional Limitations- ADL's assist with donning and doffing shoes and at Functional Limitations- Mobility/Gait Min A with bed mobility, transfers, and gait from the patients Personal Factors Other Personal Factors That May Effect Progressing Alzheimer's Therapy/Recovery PT-OP-C Subjective Start: 12/30/17 09:37 Freq: Status: Active Protocol: Document 01/14/18 15:20 [facility] (Rec: 01/14/18 15:58 [facility] [email or web address]) OP-PT Subjective Patient Comments Patient Comments Pt and admit pt is doing some but not all of his HEP. PT-OP-D Balance Start: 12/30/17 09:37 Freq: Status: Active Protocol: Document 12/30/17 09:51 [facility] (Rec: 12/30/17 09:57 [facility] [email or web address]) Balance Tests Engle Balance Test Engle Impairment Rating 40 to 59% Impaired (Score 23- 33) Engle Balance Assessment Evaluation Sitting to Standing Ability Minimal Assist Unsupported Stance Supervision- 2 minutes Sitting Unsupported, Feet on Floor Safely- 2 minutes Standing to Sitting Ability Assist, Control w/Hands Transfer Ability Supervision, Verbal Cues Unsupported Stance- Eyes Closed Supervision, 10 seconds Unsupported Stance- Eyes Open Supervision to maintain Reaching Forward Standing Supervision Needed Pick- Up Object From Floor Requires Supervision Look Behind Shoulder - Standing Turns Sideways Only Turning 360 Degrees Turns slowly, but safely Unsupported Stance, Alternating Feet on Assist to Prevent Fall Stair Unsupported Tandem Stance Balance Lost- Step/Stand Unilateral Leg Stance Lifts Leg/Unable to Hold Total Score Engle Total Score (out of 56 points) 26 Engle Impairment Rating 40 to 59% Impaired (Score 23- 33) PT-OP-G Mobility & Gait Start: 12/30/17 09:37 Freq: Status: Active Protocol: Document 12/30/17 09:51 [facility] (Rec: 12/30/17 09:57 [facility] [email or web address]) OP Mobility Evaluation Bed Mobility Rolling SBA Supine to and from Sit Min A Transfers Sit to Stand CGA OP Gait Assessment Gait Gait Assistance Required: Minimum Assistance 1 Person Assist Assistive Devices Assistive Device None Gait Deviations General Gait Pattern Decreased Stride Length Flexed Trunk Lateral Trunk Lean Factors Limiting Gait Function Factors Limiting Gait Function Decreased Strength Difficulty Following Directions Limited Range of Motion Poor Balance Poor Safety Awareness Comments Gait Comments Heather has been walking holding onto his 's arm for balance and has walking sticks but doesn't frequenty use then. He has taken frequent falls. His gait is slow and shuffling with flexed trunk and left lateral trunk lean. PT-OP-K Range of Motion Start: 12/30/17 09:37 Freq: Status: Active Protocol: Document 12/29/17 15:15 [facility] (Rec: 12/30/17 14:17 [facility] [email or web address]) Ankle and Foot Goniometric Range of Motion Ankle and Foot Measured in Degrees Right Ankle/Foot ROM WFL No Testing Position Supine Dorsiflexion with Knee Flexed 6 Dorsiflexion with Knee Extended 4 Plantarflexion 10 Left Ankle/Foot ROM WFL No Testing Position Supine Dorsiflexion with Knee Flexed 8 Dorsiflexion with Knee Extended 5 Plantarflexion 10 PT-OP-M Strength Start: 12/30/17 09:37 Freq: Status: Active Protocol: Document 12/29/17 15:15 [facility] (Rec: 12/30/17 14:17 [facility] [email or web address]) Ankle/Foot Strength Ankle and Foot Manual Muscle Testing Right Dorsiflexion (L4) 3 Fair Plantarflexion (S1) 3 Fair Inversion 4- Good- Eversion (S1) 4- Good- Left Dorsiflexion (L4) 3+ Fair+ Plantarflexion (S1) 3+ Fair+ Inversion 4 Good Eversion (S1) 4 Good PT-OP-Q Treatments Start: 12/30/17 09:37 Freq: Status: Active Protocol: Document 01/14/18 15:20 [facility] (Rec: 01/14/18 15:58 [facility] [email or web address]) Gym Equipment Shuttle Recovery Bilateral Squats Resistance 25, 37 lbs Shuttle Recovery Platform Stable Unstable Reps/Time 6 min Shuttle Balance 1 Details Green- Static, UE movements, and balloon volley Reps/Duration 10 min Comments Gait belt, mod A- losing balance posteriorly. Therapeutic Exercises Other Exercises 1 Other Exercise Name Sit<->stand Side bilateral Reps/Minutes 2x10 Comments no hands Gait Training Gait Activity 2 Description Forward and lateral gait over hurdles Device Used // bars Comments Verbal cues for foot placement , sequencing 1 Description Heel-to-toe gait Device Used // bars Comments Forward, backward PT-OP-T Assessment and Plan Start: 12/30/17 09:37 Freq: Status: Active Protocol: Document 01/14/18 15:20 [facility] (Rec: 01/14/18 15:58 [facility] [email or web address]) Physical Therapy Assessment Assessment Summary Assessment Pt able to stand without UE support on green setting on Shuttle Balance, but tends to have a posterior lean which he requires assistance to prevent a fall. Pt also with tendency to have increased weight shift to the L compared to the R in standing and with balance. Physical Therapy Plan Frequency and Duration Frequency of Treatment 2x/Week Duration of Treatment 8 weeks Plan of Care Start Date 12/29/17 Plan of Care End Date 02/23/18 Next Visit Focus/Plan Next Note Type Treatment Note Next Visit Plan prog. gait, standing balance, posture.
--- NOTE | 2018-01-27 14:25 | PT.OTN ---
Current Diagnoses Other abnormalities of gait and mobility (01/27/18) Unspecified abnormalities of gait and mobility (01/27/18) Physical Therapy Treatment Note PT-OP-A Visit Information Start: 12/30/17 09:37 Freq: Status: Active Protocol: Document 01/27/18 14:25 [facility] (Rec: 01/28/18 09:43 [facility] [email or web address]) Out-Patient Physical Therapy Visit Information Visit Information Visit Type Treatment Note Visit Start Time 13:45 Visit Stop Time 14:25 Total Visit Minutes 40 Visit Number 7 Number of BRAND ANALYST Visits 0 Evaluation Information Evaluation Date 12/29/17 PT-OP-B Current Condition Start: 12/30/17 09:37 Freq: Status: Active Protocol: Document 12/29/17 15:15 [facility] (Rec: 12/30/17 09:50 [facility] [email or web address]) Current Condition History of Current Condition Onset Date increased dizzyness and balance the past 2-3 years Current Complaints history of falls, dizzyness and poor balance History of Current Condition 82 year old male with complaints of dizzyness and balance issues worsening the past few years. He reports vertigo with looking down at times but notes today he is not experiencing this and that it will come and go. He has had a cevaluation for alzheimers and is shows increased cognitive decline and worsening gait instability . He relies on his 's arm for balance with walking and reports he does have walking sticks but does not use them much. Treatment Goals Patient/Caregiver Goals The patient and his are both present for PT and they state their goal is to help improve Heather's posture, gait and balance Prior Functional Status Baseline Function- ADL's Needs Assist Baseline Function- Mobility Needs Assist Current Functional Impairments (Reported) Functional Limitations- ADL's assist with donning and doffing shoes and at Functional Limitations- Mobility/Gait Min A with bed mobility, transfers, and gait from the patients Personal Factors Other Personal Factors That May Effect Progressing Alzheimer's Therapy/Recovery PT-OP-C Subjective Start: 12/30/17 09:37 Freq: Status: Active Protocol: Document 01/27/18 14:25 [facility] (Rec: 01/28/18 09:43 [facility] [email or web address]) OP-PT Subjective Patient Comments Patient Comments Heather reports he is doing well today. denies any falls on their trip. PT-OP-D Balance Start: 12/30/17 09:37 Freq: Status: Active Protocol: Document 12/30/17 09:51 [facility] (Rec: 12/30/17 09:57 [facility] [email or web address]) Balance Tests Engle Balance Test Engle Impairment Rating 40 to 59% Impaired (Score 23- 33) Engle Balance Assessment Evaluation Sitting to Standing Ability Minimal Assist Unsupported Stance Supervision- 2 minutes Sitting Unsupported, Feet on Floor Safely- 2 minutes Standing to Sitting Ability Assist, Control w/Hands Transfer Ability Supervision, Verbal Cues Unsupported Stance- Eyes Closed Supervision, 10 seconds Unsupported Stance- Eyes Open Supervision to maintain Reaching Forward Standing Supervision Needed Pick- Up Object From Floor Requires Supervision Look Behind Shoulder - Standing Turns Sideways Only Turning 360 Degrees Turns slowly, but safely Unsupported Stance, Alternating Feet on Assist to Prevent Fall Stair Unsupported Tandem Stance Balance Lost- Step/Stand Unilateral Leg Stance Lifts Leg/Unable to Hold Total Score Engle Total Score (out of 56 points) 26 Engle Impairment Rating 40 to 59% Impaired (Score 23- 33) PT-OP-G Mobility & Gait Start: 12/30/17 09:37 Freq: Status: Active Protocol: Document 12/30/17 09:51 [facility] (Rec: 12/30/17 09:57 [facility] [email or web address]) OP Mobility Evaluation Bed Mobility Rolling SBA Supine to and from Sit Min A Transfers Sit to Stand CGA OP Gait Assessment Gait Gait Assistance Required: Minimum Assistance 1 Person Assist Assistive Devices Assistive Device None Gait Deviations General Gait Pattern Decreased Stride Length Flexed Trunk Lateral Trunk Lean Factors Limiting Gait Function Factors Limiting Gait Function Decreased Strength Difficulty Following Directions Limited Range of Motion Poor Balance Poor Safety Awareness Comments Gait Comments Heather has been walking holding onto his 's arm for balance and has walking sticks but doesn't frequenty use then. He has taken frequent falls. His gait is slow and shuffling with flexed trunk and left lateral trunk lean. PT-OP-K Range of Motion Start: 12/30/17 09:37 Freq: Status: Active Protocol: Document 12/29/17 15:15 [facility] (Rec: 12/30/17 14:17 [facility] [email or web address]) Ankle and Foot Goniometric Range of Motion Ankle and Foot Measured in Degrees Right Ankle/Foot ROM WFL No Testing Position Supine Dorsiflexion with Knee Flexed 6 Dorsiflexion with Knee Extended 4 Plantarflexion 10 Left Ankle/Foot ROM WFL No Testing Position Supine Dorsiflexion with Knee Flexed 8 Dorsiflexion with Knee Extended 5 Plantarflexion 10 PT-OP-M Strength Start: 12/30/17 09:37 Freq: Status: Active Protocol: Document 12/29/17 15:15 [facility] (Rec: 12/30/17 14:17 [facility] [email or web address]) Ankle/Foot Strength Ankle and Foot Manual Muscle Testing Right Dorsiflexion (L4) 3 Fair Plantarflexion (S1) 3 Fair Inversion 4- Good- Eversion (S1) 4- Good- Left Dorsiflexion (L4) 3+ Fair+ Plantarflexion (S1) 3+ Fair+ Inversion 4 Good Eversion (S1) 4 Good PT-OP-Q Treatments Start: 12/30/17 09:37 Freq: Status: Active Protocol: Document 01/27/18 14:25 [facility] (Rec: 01/28/18 09:43 [facility] [email or web address]) Gym Equipment Shuttle Balance 1 Details Green- Static, UE movements, and balloon volley Reps/Duration 15 min Comments Gait belt Therapeutic Exercises Standing Exercises 3 Standing Exercise Name lunges Side bilateral Equipment Used // bars Reps/Minutes 10 each 2 Standing Exercise Name lateral, forward, backward walks Side bilateral Resistance yellow Equipment Used standing bar Reps/Minutes 2 laps each 1 Standing Exercise Name Ankle PF/DF Side bilateral Equipment Used // bars Neuro Re-Education Treatment Balance Activities 4 Details Semi-tandem- EO Equipment standing bar 1 Details Balance board- A/P and lateral Equipment // bars, balance board Comments EO, gait belt; requires UE support. Perturbations with A/ P PT-OP-T Assessment and Plan Start: 12/30/17 09:37 Freq: Status: Active Protocol: Document 01/27/18 14:25 [facility] (Rec: 01/28/18 09:43 [facility] [email or web address]) Physical Therapy Assessment Assessment Summary Assessment UE assistance and VC required for all standing activities. Pt loses his balance posteriorly with balloon volley, but increased standing balance with UE elevation and improved posture with this activity. Physical Therapy Plan Frequency and Duration Frequency of Treatment 2x/Week Duration of Treatment 8 weeks Plan of Care Start Date 12/29/17 Plan of Care End Date 02/23/18 Next Visit Focus/Plan Next Note Type Treatment Note Next Visit Plan prog. balance, LE power/ strength.
--- NOTE | 2018-01-29 14:30 | PT.OTN ---
Current Diagnoses Other abnormalities of gait and mobility (01/29/18) Unspecified abnormalities of gait and mobility (01/29/18) Physical Therapy Treatment Note PT-OP-A Visit Information Start: 12/30/17 09:37 Freq: Status: Active Protocol: Document 01/29/18 14:30 [facility] (Rec: 01/29/18 16:49 [facility] [email or web address]) Out-Patient Physical Therapy Visit Information Visit Information Visit Type Treatment Note Visit Start Time 13:45 Visit Stop Time 14:25 Total Visit Minutes 40 Visit Number 7 Number of AUTO ROLLER Visits 0 Evaluation Information Evaluation Date 12/29/17 PT-OP-B Current Condition Start: 12/30/17 09:37 Freq: Status: Active Protocol: Document 12/29/17 15:15 [facility] (Rec: 12/30/17 09:50 [facility] [email or web address]) Current Condition History of Current Condition Onset Date increased dizzyness and balance the past 2-3 years Current Complaints history of falls, dizzyness and poor balance History of Current Condition 82 year old male with complaints of dizzyness and balance issues worsening the past few years. He reports vertigo with looking down at times but notes today he is not experiencing this and that it will come and go. He has had a cevaluation for alzheimers and is shows increased cognitive decline and worsening gait instability . He relies on his 's arm for balance with walking and reports he does have walking sticks but does not use them much. Treatment Goals Patient/Caregiver Goals The patient and his are both present for PT and they state their goal is to help improve Heather's posture, gait and balance Prior Functional Status Baseline Function- ADL's Needs Assist Baseline Function- Mobility Needs Assist Current Functional Impairments (Reported) Functional Limitations- ADL's assist with donning and doffing shoes and at Functional Limitations- Mobility/Gait Min A with bed mobility, transfers, and gait from the patients Personal Factors Other Personal Factors That May Effect Progressing Alzheimer's Therapy/Recovery PT-OP-C Subjective Start: 12/30/17 09:37 Freq: Status: Active Protocol: Document 01/29/18 14:30 [facility] (Rec: 01/29/18 16:49 [facility] [email or web address]) OP-PT Subjective Patient Comments Patient Comments Heather reported fatigue with jumping on the Shuttle Balance , he required Min A for standing initially for 30 seconds. PT-OP-D Balance Start: 12/30/17 09:37 Freq: Status: Active Protocol: Document 12/30/17 09:51 [facility] (Rec: 12/30/17 09:57 [facility] [email or web address]) Balance Tests Engle Balance Test Engle Impairment Rating 40 to 59% Impaired (Score 23- 33) Engle Balance Assessment Evaluation Sitting to Standing Ability Minimal Assist Unsupported Stance Supervision- 2 minutes Sitting Unsupported, Feet on Floor Safely- 2 minutes Standing to Sitting Ability Assist, Control w/Hands Transfer Ability Supervision, Verbal Cues Unsupported Stance- Eyes Closed Supervision, 10 seconds Unsupported Stance- Eyes Open Supervision to maintain Reaching Forward Standing Supervision Needed Pick- Up Object From Floor Requires Supervision Look Behind Shoulder - Standing Turns Sideways Only Turning 360 Degrees Turns slowly, but safely Unsupported Stance, Alternating Feet on Assist to Prevent Fall Stair Unsupported Tandem Stance Balance Lost- Step/Stand Unilateral Leg Stance Lifts Leg/Unable to Hold Total Score Engle Total Score (out of 56 points) 26 Engle Impairment Rating 40 to 59% Impaired (Score 23- 33) PT-OP-G Mobility & Gait Start: 12/30/17 09:37 Freq: Status: Active Protocol: Document 12/30/17 09:51 [facility] (Rec: 12/30/17 09:57 [facility] [email or web address]) OP Mobility Evaluation Bed Mobility Rolling SBA Supine to and from Sit Min A Transfers Sit to Stand CGA OP Gait Assessment Gait Gait Assistance Required: Minimum Assistance 1 Person Assist Assistive Devices Assistive Device None Gait Deviations General Gait Pattern Decreased Stride Length Flexed Trunk Lateral Trunk Lean Factors Limiting Gait Function Factors Limiting Gait Function Decreased Strength Difficulty Following Directions Limited Range of Motion Poor Balance Poor Safety Awareness Comments Gait Comments Heather has been walking holding onto his 's arm for balance and has walking sticks but doesn't frequenty use then. He has taken frequent falls. His gait is slow and shuffling with flexed trunk and left lateral trunk lean. PT-OP-K Range of Motion Start: 12/30/17 09:37 Freq: Status: Active Protocol: Document 12/29/17 15:15 [facility] (Rec: 12/30/17 14:17 [facility] [email or web address]) Ankle and Foot Goniometric Range of Motion Ankle and Foot Measured in Degrees Right Ankle/Foot ROM WFL No Testing Position Supine Dorsiflexion with Knee Flexed 6 Dorsiflexion with Knee Extended 4 Plantarflexion 10 Left Ankle/Foot ROM WFL No Testing Position Supine Dorsiflexion with Knee Flexed 8 Dorsiflexion with Knee Extended 5 Plantarflexion 10 PT-OP-M Strength Start: 12/30/17 09:37 Freq: Status: Active Protocol: Document 12/29/17 15:15 [facility] (Rec: 12/30/17 14:17 [facility] [email or web address]) Ankle/Foot Strength Ankle and Foot Manual Muscle Testing Right Dorsiflexion (L4) 3 Fair Plantarflexion (S1) 3 Fair Inversion 4- Good- Eversion (S1) 4- Good- Left Dorsiflexion (L4) 3+ Fair+ Plantarflexion (S1) 3+ Fair+ Inversion 4 Good Eversion (S1) 4 Good PT-OP-Q Treatments Start: 12/30/17 09:37 Freq: Status: Active Protocol: Document 01/29/18 14:30 [facility] (Rec: 01/29/18 16:49 [facility] [email or web address]) Gym Equipment Shuttle Recovery Other- 1 Details DL jumps- manual assistance for intial jumping by PT Resistance 25 lbs Shuttle Recovery Platform Stable Unilateral Squats Resistance 50 lbs Shuttle Recovery Platform Stable Bilateral Squats Resistance 75 lbs Shuttle Recovery Platform Stable Shuttle Balance 1 Details Green- Static, UE movements, and balloon volley Reps/Duration 15 min Comments Gait belt Therapeutic Exercises Sitting Exercises 3 Sitting Exercise Name horizontal abduction Side bilateral Resistance L2 Reps/Minutes 1x10 Neuro Re-Education Treatment Other Activities 1 Details Standing balloon kicks Comments // bars and gait belt PT-OP-T Assessment and Plan Start: 12/30/17 09:37 Freq: Status: Active Protocol: Document 01/29/18 14:30 [facility] (Rec: 01/29/18 16:49 [facility] [email or web address]) Physical Therapy Assessment Assessment Summary Assessment Pt requires frequent cuing and re-directing with most activities. Pt requires UE assistance at all times during kicking balloon activity, and tends to kick with the L vs the R. Pt fatigues rapidly with LE jumps on Shuttle Recovery. Physical Therapy Plan Frequency and Duration Frequency of Treatment 2x/Week Duration of Treatment 8 weeks Plan of Care Start Date 12/29/17 Plan of Care End Date 02/23/18 Next Visit Focus/Plan Next Note Type Treatment Note Next Visit Plan prog. balance, LE power/ strength.
--- NOTE | 2018-02-03 14:29 | PT.OTN ---
Current Diagnoses Other abnormalities of gait and mobility (02/03/18) Unspecified abnormalities of gait and mobility (02/03/18) Physical Therapy Treatment Note PT-OP-A Visit Information Start: 12/30/17 09:37 Freq: Status: Active Protocol: Document 02/03/18 14:29 [facility] (Rec: 02/03/18 16:44 [facility] [email or web address]) Out-Patient Physical Therapy Visit Information Visit Information Visit Type Treatment Note Visit Start Time 13:47 Visit Stop Time 14:29 Total Visit Minutes 42 Visit Number 8 Number of CAR WRECKER Visits 0 Evaluation Information Evaluation Date 12/29/17 PT-OP-B Current Condition Start: 12/30/17 09:37 Freq: Status: Active Protocol: Document 12/29/17 15:15 [facility] (Rec: 12/30/17 09:50 [facility] [email or web address]) Current Condition History of Current Condition Onset Date increased dizzyness and balance the past 2-3 years Current Complaints history of falls, dizzyness and poor balance History of Current Condition 82 year old male with complaints of dizzyness and balance issues worsening the past few years. He reports vertigo with looking down at times but notes today he is not experiencing this and that it will come and go. He has had a cevaluation for alzheimers and is shows increased cognitive decline and worsening gait instability . He relies on his 's arm for balance with walking and reports he does have walking sticks but does not use them much. Treatment Goals Patient/Caregiver Goals The patient and his are both present for PT and they state their goal is to help improve Nasirs posture, gait and balance Prior Functional Status Baseline Function- ADL's Needs Assist Baseline Function- Mobility Needs Assist Current Functional Impairments (Reported) Functional Limitations- ADL's assist with donning and doffing shoes and at Functional Limitations- Mobility/Gait Min A with bed mobility, transfers, and gait from the patients Personal Factors Other Personal Factors That May Effect Progressing Alzheimer's Therapy/Recovery PT-OP-C Subjective Start: 12/30/17 09:37 Freq: Status: Active Protocol: Document 02/03/18 14:29 [facility] (Rec: 02/03/18 16:44 [facility] [email or web address]) OP-PT Subjective Patient Comments Patient Comments Heather notes that he is excited for the session. His reports he went on his stationary bike for 5 mins yesterday. PT-OP-D Balance Start: 12/30/17 09:37 Freq: Status: Active Protocol: Document 12/30/17 09:51 [facility] (Rec: 12/30/17 09:57 [facility] [email or web address]) Balance Tests Engle Balance Test Engle Impairment Rating 40 to 59% Impaired (Score 23- 33) Engle Balance Assessment Evaluation Sitting to Standing Ability Minimal Assist Unsupported Stance Supervision- 2 minutes Sitting Unsupported, Feet on Floor Safely- 2 minutes Standing to Sitting Ability Assist, Control w/Hands Transfer Ability Supervision, Verbal Cues Unsupported Stance- Eyes Closed Supervision, 10 seconds Unsupported Stance- Eyes Open Supervision to maintain Reaching Forward Standing Supervision Needed Pick- Up Object From Floor Requires Supervision Look Behind Shoulder - Standing Turns Sideways Only Turning 360 Degrees Turns slowly, but safely Unsupported Stance, Alternating Feet on Assist to Prevent Fall Stair Unsupported Tandem Stance Balance Lost- Step/Stand Unilateral Leg Stance Lifts Leg/Unable to Hold Total Score Engle Total Score (out of 56 points) 26 Engle Impairment Rating 40 to 59% Impaired (Score 23- 33) PT-OP-G Mobility & Gait Start: 12/30/17 09:37 Freq: Status: Active Protocol: Document 12/30/17 09:51 [facility] (Rec: 12/30/17 09:57 [facility] [email or web address]) OP Mobility Evaluation Bed Mobility Rolling SBA Supine to and from Sit Min A Transfers Sit to Stand CGA OP Gait Assessment Gait Gait Assistance Required: Minimum Assistance 1 Person Assist Assistive Devices Assistive Device None Gait Deviations General Gait Pattern Decreased Stride Length Flexed Trunk Lateral Trunk Lean Factors Limiting Gait Function Factors Limiting Gait Function Decreased Strength Difficulty Following Directions Limited Range of Motion Poor Balance Poor Safety Awareness Comments Gait Comments Heather has been walking holding onto his 's arm for balance and has walking sticks but doesn't frequenty use then. He has taken frequent falls. His gait is slow and shuffling with flexed trunk and left lateral trunk lean. PT-OP-K Range of Motion Start: 12/30/17 09:37 Freq: Status: Active Protocol: Document 12/29/17 15:15 [facility] (Rec: 12/30/17 14:17 [facility] [email or web address]) Ankle and Foot Goniometric Range of Motion Ankle and Foot Measured in Degrees Right Ankle/Foot ROM WFL No Testing Position Supine Dorsiflexion with Knee Flexed 6 Dorsiflexion with Knee Extended 4 Plantarflexion 10 Left Ankle/Foot ROM WFL No Testing Position Supine Dorsiflexion with Knee Flexed 8 Dorsiflexion with Knee Extended 5 Plantarflexion 10 PT-OP-M Strength Start: 12/30/17 09:37 Freq: Status: Active Protocol: Document 12/29/17 15:15 [facility] (Rec: 12/30/17 14:17 [facility] [email or web address]) Ankle/Foot Strength Ankle and Foot Manual Muscle Testing Right Dorsiflexion (L4) 3 Fair Plantarflexion (S1) 3 Fair Inversion 4- Good- Eversion (S1) 4- Good- Left Dorsiflexion (L4) 3+ Fair+ Plantarflexion (S1) 3+ Fair+ Inversion 4 Good Eversion (S1) 4 Good PT-OP-Q Treatments Start: 12/30/17 09:37 Freq: Status: Active Protocol: Document 02/03/18 14:29 [facility] (Rec: 02/03/18 16:44 [facility] [email or web address]) Gym Equipment Shuttle Recovery Other- 1 Details DL jumps- manual assistance for intial jumping by PT Resistance 25 lbs Shuttle Recovery Platform Stable Unilateral Squats Resistance 50 lbs Shuttle Recovery Platform Stable Bilateral Squats Resistance 75 lbs Shuttle Recovery Platform Stable Shuttle Balance 1 Details Yellow- Static, UE movements, and balloon volley Reps/Duration 16 min Comments Gait belt Therapeutic Exercises Standing Exercises 4 Standing Exercise Name step downs with blue foam on superior foot Side bilateral Equipment Used 5 step, // bars 2 Standing Exercise Name lateral, forward, backward walks Side bilateral Resistance yellow Equipment Used standing bar Reps/Minutes 2 laps each PT-OP-T Assessment and Plan Start: 12/30/17 09:37 Freq: Status: Active Protocol: Document 02/03/18 14:29 [facility] (Rec: 02/03/18 16:44 [facility] [email or web address]) Physical Therapy Assessment Assessment Summary Assessment Pt requires less cuing with Shuttle jumping this session, and able to increase the instability of Shuttle Balance , although still losing his balance posteriorly and requiring assistance to prevent a fall. Physical Therapy Plan Frequency and Duration Frequency of Treatment 2x/Week Duration of Treatment 8 weeks Plan of Care Start Date 12/29/17 Plan of Care End Date 02/23/18 Next Visit Focus/Plan Next Note Type Treatment Note Next Visit Plan advance balance, LE strength.
--- NOTE | 2018-02-05 14:30 | PT.OTN ---
Addendum entered and electronically signed by Ishan Palmer, PT 02/07/18 16:41: progress note needed next session Original Note: Current Diagnoses Other abnormalities of gait and mobility (02/05/18) Unspecified abnormalities of gait and mobility (02/05/18) Physical Therapy Treatment Note PT-OP-A Visit Information Start: 12/30/17 09:37 Freq: Status: Active Protocol: Document 02/05/18 14:30 [facility] (Rec: 02/07/18 16:40 [facility] [email or web address]) Out-Patient Physical Therapy Visit Information Visit Information Visit Type Treatment Note Visit Start Time 13:45 Visit Stop Time 14:30 Total Visit Minutes 45 Visit Number 9 Number of MOTOR ANALYST Visits 0 Evaluation Information Evaluation Date 12/29/17 PT-OP-B Current Condition Start: 12/30/17 09:37 Freq: Status: Active Protocol: Document 12/29/17 15:15 [facility] (Rec: 12/30/17 09:50 [facility] [email or web address]) Current Condition History of Current Condition Onset Date increased dizzyness and balance the past 2-3 years Current Complaints history of falls, dizzyness and poor balance History of Current Condition 82 year old male with complaints of dizzyness and balance issues worsening the past few years. He reports vertigo with looking down at times but notes today he is not experiencing this and that it will come and go. He has had a cevaluation for alzheimers and is shows increased cognitive decline and worsening gait instability . He relies on his 's arm for balance with walking and reports he does have walking sticks but does not use them much. Treatment Goals Patient/Caregiver Goals The patient and his are both present for PT and they state their goal is to help improve Heather's posture, gait and balance Prior Functional Status Baseline Function- ADL's Needs Assist Baseline Function- Mobility Needs Assist Current Functional Impairments (Reported) Functional Limitations- ADL's assist with donning and doffing shoes and at Functional Limitations- Mobility/Gait Min A with bed mobility, transfers, and gait from the patients Personal Factors Other Personal Factors That May Effect Progressing Alzheimer's Therapy/Recovery PT-OP-C Subjective Start: 12/30/17 09:37 Freq: Status: Active Protocol: Document 02/05/18 14:30 [facility] (Rec: 02/07/18 16:40 [facility] [email or web address]) OP-PT Subjective Patient Comments Patient Comments Heather states he is ready to work. His , Lisseth, notes that pt was doing his postural exercises in sitting on his own yesterday. PT-OP-D Balance Start: 12/30/17 09:37 Freq: Status: Active Protocol: Document 12/30/17 09:51 [facility] (Rec: 12/30/17 09:57 [facility] [email or web address]) Balance Tests Engle Balance Test Engle Impairment Rating 40 to 59% Impaired (Score 23- 33) Engle Balance Assessment Evaluation Sitting to Standing Ability Minimal Assist Unsupported Stance Supervision- 2 minutes Sitting Unsupported, Feet on Floor Safely- 2 minutes Standing to Sitting Ability Assist, Control w/Hands Transfer Ability Supervision, Verbal Cues Unsupported Stance- Eyes Closed Supervision, 10 seconds Unsupported Stance- Eyes Open Supervision to maintain Reaching Forward Standing Supervision Needed Pick- Up Object From Floor Requires Supervision Look Behind Shoulder - Standing Turns Sideways Only Turning 360 Degrees Turns slowly, but safely Unsupported Stance, Alternating Feet on Assist to Prevent Fall Stair Unsupported Tandem Stance Balance Lost- Step/Stand Unilateral Leg Stance Lifts Leg/Unable to Hold Total Score Engle Total Score (out of 56 points) 26 Engle Impairment Rating 40 to 59% Impaired (Score 23- 33) PT-OP-G Mobility & Gait Start: 12/30/17 09:37 Freq: Status: Active Protocol: Document 12/30/17 09:51 [facility] (Rec: 12/30/17 09:57 [facility] [email or web address]) OP Mobility Evaluation Bed Mobility Rolling SBA Supine to and from Sit Min A Transfers Sit to Stand CGA OP Gait Assessment Gait Gait Assistance Required: Minimum Assistance 1 Person Assist Assistive Devices Assistive Device None Gait Deviations General Gait Pattern Decreased Stride Length Flexed Trunk Lateral Trunk Lean Factors Limiting Gait Function Factors Limiting Gait Function Decreased Strength Difficulty Following Directions Limited Range of Motion Poor Balance Poor Safety Awareness Comments Gait Comments Heather has been walking holding onto his 's arm for balance and has walking sticks but doesn't frequenty use then. He has taken frequent falls. His gait is slow and shuffling with flexed trunk and left lateral trunk lean. PT-OP-K Range of Motion Start: 12/30/17 09:37 Freq: Status: Active Protocol: Document 12/29/17 15:15 [facility] (Rec: 12/30/17 14:17 [facility] [email or web address]) Ankle and Foot Goniometric Range of Motion Ankle and Foot Measured in Degrees Right Ankle/Foot ROM WFL No Testing Position Supine Dorsiflexion with Knee Flexed 6 Dorsiflexion with Knee Extended 4 Plantarflexion 10 Left Ankle/Foot ROM WFL No Testing Position Supine Dorsiflexion with Knee Flexed 8 Dorsiflexion with Knee Extended 5 Plantarflexion 10 PT-OP-M Strength Start: 12/30/17 09:37 Freq: Status: Active Protocol: Document 12/29/17 15:15 [facility] (Rec: 12/30/17 14:17 [facility] [email or web address]) Ankle/Foot Strength Ankle and Foot Manual Muscle Testing Right Dorsiflexion (L4) 3 Fair Plantarflexion (S1) 3 Fair Inversion 4- Good- Eversion (S1) 4- Good- Left Dorsiflexion (L4) 3+ Fair+ Plantarflexion (S1) 3+ Fair+ Inversion 4 Good Eversion (S1) 4 Good PT-OP-Q Treatments Start: 12/30/17 09:37 Freq: Status: Active Protocol: Document 02/05/18 14:30 [facility] (Rec: 02/07/18 16:40 [facility] [email or web address]) Gym Equipment Shuttle Recovery Other- 1 Details DL jumps- manual assistance for intial jumping by PT Resistance 25 lbs Shuttle Recovery Platform Stable Unilateral Squats Resistance 50 lbs Shuttle Recovery Platform Stable Bilateral Squats Resistance 87 lbs Shuttle Recovery Platform Stable Shuttle Balance 1 Details Yellow- Static, UE movements, and balloon volley Reps/Duration 15 min Comments Gait belt, MOD A- loses balance with balloon volley Sport Cord 1 Exercise Details forward walking /c backward eccentric Cord/Resistance red/white cord Reps/Duration 1x5 Therapeutic Exercises Standing Exercises 2 Standing Exercise Name lateral, forward, backward walks Side bilateral Resistance yellow Equipment Used standing bar Reps/Minutes 3 laps each Gait Training Gait Activity 1 Description Heel-to-toe gait Device Used // bars Comments Forward, backward PT-OP-T Assessment and Plan Start: 12/30/17 09:37 Freq: Status: Active Protocol: Document 02/05/18 14:30 [facility] (Rec: 02/07/18 16:40 [facility] [email or web address]) Physical Therapy Assessment Assessment Summary Assessment Pt loses his balance posteriorly mostly when performing balloon volley, requiring Mod assist to prevent a fall and tactile and verbal cuing for appropriate standing posture. Physical Therapy Plan Frequency and Duration Frequency of Treatment 2x/Week Duration of Treatment 8 weeks Plan of Care Start Date 12/29/17 Plan of Care End Date 02/23/18 Next Visit Focus/Plan Next Note Type Treatment Note Next Visit Plan advance balance, LE strength.
--- NOTE | 2018-02-10 11:17 | PT.OTN ---
Current Diagnoses Other abnormalities of gait and mobility (02/10/18) Unspecified abnormalities of gait and mobility (02/10/18) Physical Therapy Treatment Note PT-OP-A Visit Information Start: 12/30/17 09:37 Freq: Status: Active Protocol: Document 02/10/18 10:30 [facility] (Rec: 02/10/18 11:17 [facility] [id number]) Out-Patient Physical Therapy Visit Information Visit Information Visit Type Treatment Note Visit Start Time 10:30 Visit Stop Time 11:15 Total Visit Minutes 45 Visit Number 10 Number of PROFESSOR OF MUSIC Visits 0 Evaluation Information Evaluation Date 12/29/17 PT-OP-B Current Condition Start: 12/30/17 09:37 Freq: Status: Active Protocol: Document 12/29/17 15:15 [facility] (Rec: 12/30/17 09:50 [facility] [email or web address]) Current Condition History of Current Condition Onset Date increased dizzyness and balance the past 2-3 years Current Complaints history of falls, dizzyness and poor balance History of Current Condition 82 year old male with complaints of dizzyness and balance issues worsening the past few years. He reports vertigo with looking down at times but notes today he is not experiencing this and that it will come and go. He has had a cevaluation for alzheimers and is shows increased cognitive decline and worsening gait instability . He relies on his 's arm for balance with walking and reports he does have walking sticks but does not use them much. Treatment Goals Patient/Caregiver Goals The patient and his are both present for PT and they state their goal is to help improve Heather's posture, gait and balance Prior Functional Status Baseline Function- ADL's Needs Assist Baseline Function- Mobility Needs Assist Current Functional Impairments (Reported) Functional Limitations- ADL's assist with donning and doffing shoes and at Functional Limitations- Mobility/Gait Min A with bed mobility, transfers, and gait from the patients Personal Factors Other Personal Factors That May Effect Progressing Alzheimer's Therapy/Recovery PT-OP-C Subjective Start: 12/30/17 09:37 Freq: Status: Active Protocol: Document 02/10/18 10:30 [facility] (Rec: 02/10/18 11:17 [facility] [id number]) OP-PT Subjective Patient Comments Patient Comments Pt notes today is a good day. Reports he is feeling a little more energetic than normal. PT-OP-D Balance Start: 12/30/17 09:37 Freq: Status: Active Protocol: Document 12/30/17 09:51 [facility] (Rec: 12/30/17 09:57 [facility] [email or web address]) Balance Tests Engle Balance Test Engle Impairment Rating 40 to 59% Impaired (Score 23- 33) Engle Balance Assessment Evaluation Sitting to Standing Ability Minimal Assist Unsupported Stance Supervision- 2 minutes Sitting Unsupported, Feet on Floor Safely- 2 minutes Standing to Sitting Ability Assist, Control w/Hands Transfer Ability Supervision, Verbal Cues Unsupported Stance- Eyes Closed Supervision, 10 seconds Unsupported Stance- Eyes Open Supervision to maintain Reaching Forward Standing Supervision Needed Pick- Up Object From Floor Requires Supervision Look Behind Shoulder - Standing Turns Sideways Only Turning 360 Degrees Turns slowly, but safely Unsupported Stance, Alternating Feet on Assist to Prevent Fall Stair Unsupported Tandem Stance Balance Lost- Step/Stand Unilateral Leg Stance Lifts Leg/Unable to Hold Total Score Engle Total Score (out of 56 points) 26 Engle Impairment Rating 40 to 59% Impaired (Score 23- 33) PT-OP-G Mobility & Gait Start: 12/30/17 09:37 Freq: Status: Active Protocol: Document 12/30/17 09:51 [facility] (Rec: 12/30/17 09:57 [facility] [email or web address]) OP Mobility Evaluation Bed Mobility Rolling SBA Supine to and from Sit Min A Transfers Sit to Stand CGA OP Gait Assessment Gait Gait Assistance Required: Minimum Assistance 1 Person Assist Assistive Devices Assistive Device None Gait Deviations General Gait Pattern Decreased Stride Length Flexed Trunk Lateral Trunk Lean Factors Limiting Gait Function Factors Limiting Gait Function Decreased Strength Difficulty Following Directions Limited Range of Motion Poor Balance Poor Safety Awareness Comments Gait Comments Heather has been walking holding onto his 's arm for balance and has walking sticks but doesn't frequenty use then. He has taken frequent falls. His gait is slow and shuffling with flexed trunk and left lateral trunk lean. PT-OP-K Range of Motion Start: 12/30/17 09:37 Freq: Status: Active Protocol: Document 12/29/17 15:15 [facility] (Rec: 12/30/17 14:17 [facility] [email or web address]) Ankle and Foot Goniometric Range of Motion Ankle and Foot Measured in Degrees Right Ankle/Foot ROM WFL No Testing Position Supine Dorsiflexion with Knee Flexed 6 Dorsiflexion with Knee Extended 4 Plantarflexion 10 Left Ankle/Foot ROM WFL No Testing Position Supine Dorsiflexion with Knee Flexed 8 Dorsiflexion with Knee Extended 5 Plantarflexion 10 PT-OP-M Strength Start: 12/30/17 09:37 Freq: Status: Active Protocol: Document 12/29/17 15:15 [facility] (Rec: 12/30/17 14:17 [facility] [email or web address]) Ankle/Foot Strength Ankle and Foot Manual Muscle Testing Right Dorsiflexion (L4) 3 Fair Plantarflexion (S1) 3 Fair Inversion 4- Good- Eversion (S1) 4- Good- Left Dorsiflexion (L4) 3+ Fair+ Plantarflexion (S1) 3+ Fair+ Inversion 4 Good Eversion (S1) 4 Good PT-OP-Q Treatments Start: 12/30/17 09:37 Freq: Status: Active Protocol: Document 02/10/18 10:30 [facility] (Rec: 02/10/18 11:17 [facility] [id number]) Gym Equipment Shuttle Recovery Other- 1 Details DL jumps- manual assistance for intial jumping by PT Resistance 25 lbs Shuttle Recovery Platform Stable Unilateral Squats Resistance 50 lbs Shuttle Recovery Platform Stable Bilateral Squats Resistance 87 lbs Shuttle Recovery Platform Stable Shuttle Balance 1 Details Yellow- Static, UE movements, and balloon volley Reps/Duration 15 min Comments Gait belt, MOD A- loses balance with balloon volley Sport Cord 1 Exercise Details forward walking /c backward eccentric Cord/Resistance red/white cord Reps/Duration 1x5 Therapeutic Exercises Standing Exercises 2 Standing Exercise Name lateral, forward, backward walks Side bilateral Resistance yellow Equipment Used standing bar Reps/Minutes 3 laps each PT-OP-T Assessment and Plan Start: 12/30/17 09:37 Freq: Status: Active Protocol: Document 02/10/18 10:30 [facility] (Rec: 02/10/18 11:17 [facility] [id number]) Physical Therapy Assessment Impairments Impairments Activity Tolerance Balance Coordination Functional Activities Functional Mobility Gait Posture ROM Strength Tone Transfers Goals Four Impairment unable to perform sit-stand without use of hands Wool Presser Goal (LTG) improve functional squat and balance improving ability for Heather to sit and stand without use of his hands Three Impairment poor postural habits contributing to forward trunk lean Custodial Goal (LTG) Heather is given a strengthening program for improved posture to decrease forward lean and decreased loss of balance in a forward direction Two Impairment antalgic gait pattern without use of an assistive device Short Term Goal (STG) Heather is in gait training with a FWW to help reduce risk of falls STG Duration 5 weeks One Impairment poor ankle ROM and calf tightness limiting ankle DF for gait/balance Short Term Goal (STG) Improve ankle ROM and calf flexibility to help improve ankle strategy for balance reactions STG Duration 5 weeks Assessment Summary Assessment Pt progressing, although at a slow pace. Pt does struggle occasionally following instructions, requires multiple verbal cues and reminders of exercises he has performed many times. Physical Therapy Plan Frequency and Duration Frequency of Treatment 2x/Week Duration of Treatment 8 weeks Plan of Care Start Date 12/29/17 Plan of Care End Date 02/23/18 Next Visit Focus/Plan Next Note Type Treatment Note Next Visit Plan advance balance, LE strength.
--- NOTE | 2018-02-16 16:35 | PT.OTN ---
Current Diagnoses Other abnormalities of gait and mobility (02/16/18) Unspecified abnormalities of gait and mobility (02/16/18) Physical Therapy Treatment Note PT-OP-A Visit Information Start: 12/30/17 09:37 Freq: Status: Active Protocol: Document 02/16/18 15:15 DCW (Rec: 02/16/18 16:35 DCW [id number]) Out-Patient Physical Therapy Visit Information Visit Information Visit Type Treatment Note Visit Start Time 15:15 Visit Stop Time 16:00 Total Visit Minutes 45 Visit Number 11 Number of PARTY DIRECTOR Visits 0 Evaluation Information Evaluation Date 12/29/17 PT-OP-B Current Condition Start: 12/30/17 09:37 Freq: Status: Active Protocol: Document 12/29/17 15:15 [facility] (Rec: 12/30/17 09:50 [facility] [email or web address]) Current Condition History of Current Condition Onset Date increased dizzyness and balance the past 2-3 years Current Complaints history of falls, dizzyness and poor balance History of Current Condition 82 year old male with complaints of dizzyness and balance issues worsening the past few years. He reports vertigo with looking down at times but notes today he is not experiencing this and that it will come and go. He has had a cevaluation for alzheimers and is shows increased cognitive decline and worsening gait instability . He relies on his 's arm for balance with walking and reports he does have walking sticks but does not use them much. Treatment Goals Patient/Caregiver Goals The patient and his are both present for PT and they state their goal is to help improve Heather's posture, gait and balance Prior Functional Status Baseline Function- ADL's Needs Assist Baseline Function- Mobility Needs Assist Current Functional Impairments (Reported) Functional Limitations- ADL's assist with donning and doffing shoes and at Functional Limitations- Mobility/Gait Min A with bed mobility, transfers, and gait from the patients Personal Factors Other Personal Factors That May Effect Progressing Alzheimer's Therapy/Recovery PT-OP-C Subjective Start: 12/30/17 09:37 Freq: Status: Active Protocol: Document 02/16/18 15:15 DCW (Rec: 02/16/18 16:35 DCW [id number]) OP-PT Subjective Patient Comments Patient Comments Pt's reports that he seems to be having trouble standing up from chairs recently. PT-OP-D Balance Start: 12/30/17 09:37 Freq: Status: Active Protocol: Document 12/30/17 09:51 [facility] (Rec: 12/30/17 09:57 [facility] [email or web address]) Balance Tests Engle Balance Test Engle Impairment Rating 40 to 59% Impaired (Score 23- 33) Engle Balance Assessment Evaluation Sitting to Standing Ability Minimal Assist Unsupported Stance Supervision- 2 minutes Sitting Unsupported, Feet on Floor Safely- 2 minutes Standing to Sitting Ability Assist, Control w/Hands Transfer Ability Supervision, Verbal Cues Unsupported Stance- Eyes Closed Supervision, 10 seconds Unsupported Stance- Eyes Open Supervision to maintain Reaching Forward Standing Supervision Needed Pick- Up Object From Floor Requires Supervision Look Behind Shoulder - Standing Turns Sideways Only Turning 360 Degrees Turns slowly, but safely Unsupported Stance, Alternating Feet on Assist to Prevent Fall Stair Unsupported Tandem Stance Balance Lost- Step/Stand Unilateral Leg Stance Lifts Leg/Unable to Hold Total Score Engle Total Score (out of 56 points) 26 Engle Impairment Rating 40 to 59% Impaired (Score 23- 33) PT-OP-G Mobility & Gait Start: 12/30/17 09:37 Freq: Status: Active Protocol: Document 12/30/17 09:51 [facility] (Rec: 12/30/17 09:57 [facility] [email or web address]) OP Mobility Evaluation Bed Mobility Rolling SBA Supine to and from Sit Min A Transfers Sit to Stand CGA OP Gait Assessment Gait Gait Assistance Required: Minimum Assistance 1 Person Assist Assistive Devices Assistive Device None Gait Deviations General Gait Pattern Decreased Stride Length Flexed Trunk Lateral Trunk Lean Factors Limiting Gait Function Factors Limiting Gait Function Decreased Strength Difficulty Following Directions Limited Range of Motion Poor Balance Poor Safety Awareness Comments Gait Comments Heather has been walking holding onto his 's arm for balance and has walking sticks but doesn't frequenty use then. He has taken frequent falls. His gait is slow and shuffling with flexed trunk and left lateral trunk lean. PT-OP-K Range of Motion Start: 12/30/17 09:37 Freq: Status: Active Protocol: Document 12/29/17 15:15 [facility] (Rec: 12/30/17 14:17 [facility] [email or web address]) Ankle and Foot Goniometric Range of Motion Ankle and Foot Measured in Degrees Right Ankle/Foot ROM WFL No Testing Position Supine Dorsiflexion with Knee Flexed 6 Dorsiflexion with Knee Extended 4 Plantarflexion 10 Left Ankle/Foot ROM WFL No Testing Position Supine Dorsiflexion with Knee Flexed 8 Dorsiflexion with Knee Extended 5 Plantarflexion 10 PT-OP-M Strength Start: 12/30/17 09:37 Freq: Status: Active Protocol: Document 12/29/17 15:15 [facility] (Rec: 12/30/17 14:17 [facility] [email or web address]) Ankle/Foot Strength Ankle and Foot Manual Muscle Testing Right Dorsiflexion (L4) 3 Fair Plantarflexion (S1) 3 Fair Inversion 4- Good- Eversion (S1) 4- Good- Left Dorsiflexion (L4) 3+ Fair+ Plantarflexion (S1) 3+ Fair+ Inversion 4 Good Eversion (S1) 4 Good PT-OP-Q Treatments Start: 12/30/17 09:37 Freq: Status: Active Protocol: Document 02/16/18 15:15 DCW (Rec: 02/16/18 16:35 DCW [id number]) Gym Equipment Shuttle Recovery Other- 1 Details DL jumps- manual assistance for intial jumping by PT Resistance 25 lbs Shuttle Recovery Platform Stable Unilateral Squats Resistance 50 lbs Shuttle Recovery Platform Stable Bilateral Squats Resistance 87 lbs Shuttle Recovery Platform Stable Shuttle Balance 1 Details Yellow- Static, UE movements, and balloon volley Reps/Duration 15 min Comments Gait belt, MOD A- loses balance with balloon volley Therapeutic Exercises Standing Exercises 4 Standing Exercise Name step downs with blue foam on superior foot Side bilateral Equipment Used 5 step, // bars 2 Standing Exercise Name lateral, forward, backward walks Side bilateral Resistance yellow Equipment Used standing bar Reps/Minutes 2 laps each Gait Training Gait Activity 1 Description Heel-to-toe gait Device Used // bars Comments Forward, backward PT-OP-T Assessment and Plan Start: 12/30/17 09:37 Freq: Status: Active Protocol: Document 02/16/18 15:15 DCW (Rec: 02/16/18 16:35 DCW [id number]) Physical Therapy Assessment Impairments Impairments Activity Tolerance Balance Coordination Functional Activities Functional Mobility Gait Posture ROM Strength Tone Transfers Goals Four Impairment unable to perform sit-stand without use of hands Report Specialist Goal (LTG) improve functional squat and balance improving ability for Heather to sit and stand without use of his hands Three Impairment poor postural habits contributing to forward trunk lean Report Specialist Goal (LTG) Heather is given a strengthening program for improved posture to decrease forward lean and decreased loss of balance in a forward direction Two Impairment antalgic gait pattern without use of an assistive device Short Term Goal (STG) Heather is in gait training with a FWW to help reduce risk of falls STG Duration 5 weeks One Impairment poor ankle ROM and calf tightness limiting ankle DF for gait/balance Short Term Goal (STG) Improve ankle ROM and calf flexibility to help improve ankle strategy for balance reactions STG Duration 5 weeks Assessment Summary Assessment Pt requires multiple verbal cues to follow instructions Physical Therapy Plan Frequency and Duration Frequency of Treatment 2x/Week Duration of Treatment 8 weeks Plan of Care Start Date 12/29/17 Plan of Care End Date 02/23/18 Next Visit Focus/Plan Next Note Type Treatment Note Next Visit Plan advance balance, LE strength.
--- NOTE | 2018-02-24 12:00 | PT.OTN ---
Current Diagnoses Other abnormalities of gait and mobility (02/24/18) Unspecified abnormalities of gait and mobility (02/24/18) Physical Therapy Treatment Note PT-OP-A Visit Information Start: 12/30/17 09:37 Freq: Status: Active Protocol: Document 02/24/18 12:00 [facility] (Rec: 02/24/18 14:24 [facility] [email or web address]) Out-Patient Physical Therapy Visit Information Visit Information Visit Type Treatment Note Visit Start Time 11:15 Visit Stop Time 12:00 Total Visit Minutes 45 Visit Number 12 Number of FAMILY CONSUMER SCIENCE TEACHER Visits 0 Evaluation Information Evaluation Date 12/29/17 PT-OP-B Current Condition Start: 12/30/17 09:37 Freq: Status: Active Protocol: Document 12/29/17 15:15 [facility] (Rec: 12/30/17 09:50 [facility] [email or web address]) Current Condition History of Current Condition Onset Date increased dizzyness and balance the past 2-3 years Current Complaints history of falls, dizzyness and poor balance History of Current Condition 82 year old male with complaints of dizzyness and balance issues worsening the past few years. He reports vertigo with looking down at times but notes today he is not experiencing this and that it will come and go. He has had a cevaluation for alzheimers and is shows increased cognitive decline and worsening gait instability . He relies on his 's arm for balance with walking and reports he does have walking sticks but does not use them much. Treatment Goals Patient/Caregiver Goals The patient and his are both present for PT and they state their goal is to help improve Nasirs posture, gait and balance Prior Functional Status Baseline Function- ADL's Needs Assist Baseline Function- Mobility Needs Assist Current Functional Impairments (Reported) Functional Limitations- ADL's assist with donning and doffing shoes and at Functional Limitations- Mobility/Gait Min A with bed mobility, transfers, and gait from the patients Personal Factors Other Personal Factors That May Effect Progressing Alzheimer's Therapy/Recovery PT-OP-C Subjective Start: 12/30/17 09:37 Freq: Status: Active Protocol: Document 02/24/18 12:00 [facility] (Rec: 02/24/18 14:24 [facility] [email or web address]) OP-PT Subjective Patient Comments Patient Comments Pt's states that they saw the COOKER TENDER yesterday, and Heather was thought to have Parkinson's Disease and he has started levadopa. PT-OP-D Balance Start: 12/30/17 09:37 Freq: Status: Active Protocol: Document 12/30/17 09:51 [facility] (Rec: 12/30/17 09:57 [facility] [email or web address]) Balance Tests Engle Balance Test Engle Impairment Rating 40 to 59% Impaired (Score 23- 33) Engle Balance Assessment Evaluation Sitting to Standing Ability Minimal Assist Unsupported Stance Supervision- 2 minutes Sitting Unsupported, Feet on Floor Safely- 2 minutes Standing to Sitting Ability Assist, Control w/Hands Transfer Ability Supervision, Verbal Cues Unsupported Stance- Eyes Closed Supervision, 10 seconds Unsupported Stance- Eyes Open Supervision to maintain Reaching Forward Standing Supervision Needed Pick- Up Object From Floor Requires Supervision Look Behind Shoulder - Standing Turns Sideways Only Turning 360 Degrees Turns slowly, but safely Unsupported Stance, Alternating Feet on Assist to Prevent Fall Stair Unsupported Tandem Stance Balance Lost- Step/Stand Unilateral Leg Stance Lifts Leg/Unable to Hold Total Score Engle Total Score (out of 56 points) 26 Engle Impairment Rating 40 to 59% Impaired (Score 23- 33) PT-OP-G Mobility & Gait Start: 12/30/17 09:37 Freq: Status: Active Protocol: Document 12/30/17 09:51 [facility] (Rec: 12/30/17 09:57 [facility] [email or web address]) OP Mobility Evaluation Bed Mobility Rolling SBA Supine to and from Sit Min A Transfers Sit to Stand CGA OP Gait Assessment Gait Gait Assistance Required: Minimum Assistance 1 Person Assist Assistive Devices Assistive Device None Gait Deviations General Gait Pattern Decreased Stride Length Flexed Trunk Lateral Trunk Lean Factors Limiting Gait Function Factors Limiting Gait Function Decreased Strength Difficulty Following Directions Limited Range of Motion Poor Balance Poor Safety Awareness Comments Gait Comments Heather has been walking holding onto his 's arm for balance and has walking sticks but doesn't frequenty use then. He has taken frequent falls. His gait is slow and shuffling with flexed trunk and left lateral trunk lean. PT-OP-K Range of Motion Start: 12/30/17 09:37 Freq: Status: Active Protocol: Document 12/29/17 15:15 [facility] (Rec: 12/30/17 14:17 [facility] [email or web address]) Ankle and Foot Goniometric Range of Motion Ankle and Foot Measured in Degrees Right Ankle/Foot ROM WFL No Testing Position Supine Dorsiflexion with Knee Flexed 6 Dorsiflexion with Knee Extended 4 Plantarflexion 10 Left Ankle/Foot ROM WFL No Testing Position Supine Dorsiflexion with Knee Flexed 8 Dorsiflexion with Knee Extended 5 Plantarflexion 10 PT-OP-M Strength Start: 12/30/17 09:37 Freq: Status: Active Protocol: Document 12/29/17 15:15 [facility] (Rec: 12/30/17 14:17 [facility] [email or web address]) Ankle/Foot Strength Ankle and Foot Manual Muscle Testing Right Dorsiflexion (L4) 3 Fair Plantarflexion (S1) 3 Fair Inversion 4- Good- Eversion (S1) 4- Good- Left Dorsiflexion (L4) 3+ Fair+ Plantarflexion (S1) 3+ Fair+ Inversion 4 Good Eversion (S1) 4 Good PT-OP-Q Treatments Start: 12/30/17 09:37 Freq: Status: Active Protocol: Document 02/24/18 12:00 [facility] (Rec: 02/24/18 14:24 [facility] [email or web address]) Gym Equipment Shuttle Recovery Other- 1 Details DL jumps- manual assistance for intial jumping by PT Resistance 37 lbs Shuttle Recovery Platform Stable Unilateral Squats Resistance 50 lbs Shuttle Recovery Platform Stable Bilateral Squats Resistance 87 lbs Shuttle Recovery Platform Stable Shuttle Balance 1 Details Yellow- Static, UE movements with DL and balloon volley; semi-tandem Reps/Duration 18 min Comments Gait belt, MOD A- loses balance with balloon volley Therapeutic Exercises Standing Exercises 6 Standing Exercise Name standing JCARLOS and stair stretch for gastroc/soleus Side bilateral Reps/Minutes 5 min 5 Standing Exercise Name wall posture- UE neutral and @ 90 degrees abduction Side bilateral Reps/Minutes 5 min Self-Care/Home Management Treatment Education Patient Education Home Exercise Program Other Education provided- gastroc stretch on stairs with assistance PT-OP-T Assessment and Plan Start: 12/30/17 09:37 Freq: Status: Active Protocol: Document 02/24/18 12:00 [facility] (Rec: 02/24/18 14:24 [facility] [email or web address]) Physical Therapy Assessment Goals Four Impairment unable to perform sit-stand without use of hands Relations Mgr Goal (LTG) improve functional squat and balance improving ability for Heather to sit and stand without use of his hands LTG Duration 8 weeks Three Impairment poor postural habits contributing to forward trunk lean Relations Mgr Goal (LTG) Heather is given a strengthening program for improved posture to decrease forward lean and decreased loss of balance in a forward direction LTG Duration 8 weeks Two Impairment antalgic gait pattern without use of an assistive device Short Term Goal (STG) Heather is in gait training with a FWW to help reduce risk of falls STG Duration 8 weeks One Impairment poor ankle ROM and calf tightness limiting ankle DF for gait/balance Short Term Goal (STG) Improve ankle ROM and calf flexibility to help improve ankle strategy for balance reactions STG Duration 8 weeks Progress Towards Goals Progress Comments Pt has a HEP established for progression of his gastroc/ soleus tension. He is not using an assistive device for gait, and is only using his UE for stand to sit (able to perform sit to stand without UE support) and posture is slightly more upright this session with standing and gait . Assessment Summary Assessment Pt with slightly more erect standing posture, and does demonstrate an improvement in standing balance on Shuttle Balance able to tolerate semi- tandem without UE support. Pt would benefit from LSVT Big program if he does carry a diagnosis of Parkinson's disease, as well as continuation of skilled outpatient physical therapy to progress his balance, strength, gait, and overall safety with activities and functional mobility. Physical Therapy Plan Frequency and Duration Frequency of Treatment 2x/Week Duration of Treatment 8 weeks Plan of Care Start Date 02/24/18 Plan of Care End Date 04/21/18 Therapeutic Interventions Therapeutic Interventions Aquatic Therapy Balance Training Coordination Training Gait Training Home Exercise Program Manual Therapy Neuromuscular Re-education Patient/Caregiver Education Self-Care/Home Management Soft Tissue Mobilization Taping Therapeutic Activities Therapeutic Exercises Other Therapeutic Interventions LSVT BIG program Other Referrals/Consults Referrals/Consults Recommended referral for oupatient physical therapy- LSVT BIG program Next Visit Focus/Plan Next Note Type Treatment Note Next Visit Plan standing balance, gait, sit<-> stand
--- NOTE | 2018-02-24 12:00 | PT.OPPOC ---
Current Diagnoses Other abnormalities of gait and mobility (02/24/18) Unspecified abnormalities of gait and mobility (02/24/18) Provider Visit Care Team Role Provider Type Judy Ji PA-C Attending Provider Advanced Shingle Weaver Family Provider Primary Care Provider Specialty: Family Practice Address: [address] [place] [address], [id number] Email: [email or web address] Plan Of Care PT-OP-T Assessment and Plan Start: 12/30/17 09:37 Freq: Status: Active Protocol: Document 02/24/18 12:00 [facility] (Rec: 02/24/18 14:24 [facility] [email or web address]) Physical Therapy Assessment Goals Four Impairment unable to perform sit-stand without use of hands Snf Goal (LTG) improve functional squat and balance improving ability for Heather to sit and stand without use of his hands LTG Duration 8 weeks Three Impairment poor postural habits contributing to forward trunk lean Manager Order Goal (LTG) Heather is given a strengthening program for improved posture to decrease forward lean and decreased loss of balance in a forward direction LTG Duration 8 weeks Two Impairment antalgic gait pattern without use of an assistive device Short Term Goal (STG) Heather is in gait training with a FWW to help reduce risk of falls STG Duration 8 weeks One Impairment poor ankle ROM and calf tightness limiting ankle DF for gait/balance Short Term Goal (STG) Improve ankle ROM and calf flexibility to help improve ankle strategy for balance reactions STG Duration 8 weeks Progress Towards Goals Progress Comments Pt has a HEP established for progression of his gastroc/ soleus tension. He is not using an assistive device for gait, and is only using his UE for stand to sit (able to perform sit to stand without UE support) and posture is slightly more upright this session with standing and gait . Assessment Summary Assessment Pt with slightly more erect standing posture, and does demonstrate an improvement in standing balance on Shuttle Balance able to tolerate semi- tandem without UE support. Pt would benefit from LSVT Big program if he does carry a diagnosis of Parkinson's disease, as well as continuation of skilled outpatient physical therapy to progress his balance, strength, gait, and overall safety with activities and functional mobility. Physical Therapy Plan Frequency and Duration Frequency of Treatment 2x/Week Duration of Treatment 8 weeks Plan of Care Start Date 02/24/18 Plan of Care End Date 04/21/18 Therapeutic Interventions Therapeutic Interventions Aquatic Therapy Balance Training Coordination Training Gait Training Home Exercise Program Manual Therapy Neuromuscular Re-education Patient/Caregiver Education Self-Care/Home Management Soft Tissue Mobilization Taping Therapeutic Activities Therapeutic Exercises Other Therapeutic Interventions LSVT BIG program Other Referrals/Consults Referrals/Consults Recommended referral for outpatient physical therapy- LSVT BIG program Next Visit Focus/Plan Next Note Type Treatment Note Next Visit Plan standing balance, gait, sit<-> stand Plan of Care Dates Plan of Care Start Date 02/24/18 Plan of Care End Date 04/21/18 Please Sign and Return: I have reviewed this Plan of Care and certify that the skilled therapy services above are required to meet the patient?s needs. Physician Signature Date Printed Name and Credentials Clinical Instructor Signature Printed Name and Credentials
--- NOTE | 2018-03-04 15:15 | PT.OTN ---
Current Diagnoses Other abnormalities of gait and mobility (03/04/18) Unspecified abnormalities of gait and mobility (03/04/18) Physical Therapy Treatment Note PT-OP-A Visit Information Start: 12/30/17 09:37 Freq: Status: Active Protocol: Document 03/04/18 15:15 [facility] (Rec: 03/05/18 08:37 [facility] [email or web address]) Out-Patient Physical Therapy Visit Information Visit Information Visit Type Treatment Note Visit Start Time 14:30 Visit Stop Time 15:15 Total Visit Minutes 45 Visit Number 13 Number of MACHINE ZIPPER TRIMMER Visits 0 PT-OP-B Current Condition Start: 12/30/17 09:37 Freq: Status: Active Protocol: Document 12/29/17 15:15 [facility] (Rec: 12/30/17 09:50 [facility] [email or web address]) Current Condition History of Current Condition Onset Date increased dizzyness and balance the past 2-3 years Current Complaints history of falls, dizzyness and poor balance History of Current Condition 82 year old male with complaints of dizzyness and balance issues worsening the past few years. He reports vertigo with looking down at times but notes today he is not experiencing this and that it will come and go. He has had a cevaluation for alzheimers and is shows increased cognitive decline and worsening gait instability . He relies on his 's arm for balance with walking and reports he does have walking sticks but does not use them much. Treatment Goals Patient/Caregiver Goals The patient and his are both present for PT and they state their goal is to help improve Montee's posture, gait and balance Prior Functional Status Baseline Function- ADL's Needs Assist Baseline Function- Mobility Needs Assist Current Functional Impairments (Reported) Functional Limitations- ADL's assist with donning and doffing shoes and at Functional Limitations- Mobility/Gait Min A with bed mobility, transfers, and gait from the patients Personal Factors Other Personal Factors That May Effect Progressing Alzheimer's Therapy/Recovery PT-OP-C Subjective Start: 12/30/17 09:37 Freq: Status: Active Protocol: Document 03/04/18 15:15 [facility] (Rec: 03/05/18 08:37 [facility] [email or web address]) OP-PT Subjective Patient Comments Patient Comments Pt is to start the BIG program in April at this clinic. They have been working at home on his HEP. PT-OP-D Balance Start: 06/20/18 09:37 Freq: Status: Active Protocol: Document 12/30/17 09:51 [facility] (Rec: 12/30/17 09:57 [facility] [email or web address]) Balance Tests Engle Balance Test Engle Impairment Rating 40 to 59% Impaired (Score 23- 33) Engle Balance Assessment Evaluation Sitting to Standing Ability Minimal Assist Unsupported Stance Supervision- 2 minutes Sitting Unsupported, Feet on Floor Safely- 2 minutes Standing to Sitting Ability Assist, Control w/Hands Transfer Ability Supervision, Verbal Cues Unsupported Stance- Eyes Closed Supervision, 10 seconds Unsupported Stance- Eyes Open Supervision to maintain Reaching Forward Standing Supervision Needed Pick- Up Object From Floor Requires Supervision Look Behind Shoulder - Standing Turns Sideways Only Turning 360 Degrees Turns slowly, but safely Unsupported Stance, Alternating Feet on Assist to Prevent Fall Stair Unsupported Tandem Stance Balance Lost- Step/Stand Unilateral Leg Stance Lifts Leg/Unable to Hold Total Score Engle Total Score (out of 56 points) 26 Engle Impairment Rating 40 to 59% Impaired (Score 23- 33) PT-OP-G Mobility & Gait Start: 12/30/17 09:37 Freq: Status: Active Protocol: Document 12/30/17 09:51 [facility] (Rec: 12/30/17 09:57 [facility] [email or web address]) OP Mobility Evaluation Bed Mobility Rolling SBA Supine to and from Sit Min A Transfers Sit to Stand CGA OP Gait Assessment Gait Gait Assistance Required: Minimum Assistance 1 Person Assist Assistive Devices Assistive Device None Gait Deviations General Gait Pattern Decreased Stride Length Flexed Trunk Lateral Trunk Lean Factors Limiting Gait Function Factors Limiting Gait Function Decreased Strength Difficulty Following Directions Limited Range of Motion Poor Balance Poor Safety Awareness Comments Gait Comments Heather has been walking holding onto his 's arm for balance and has walking sticks but doesn't frequenty use then. He has taken frequent falls. His gait is slow and shuffling with flexed trunk and left lateral trunk lean. PT-OP-K Range of Motion Start: 12/30/17 09:37 Freq: Status: Active Protocol: Document 12/29/17 15:15 [facility] (Rec: 12/30/17 14:17 [facility] [email or web address]) Ankle and Foot Goniometric Range of Motion Ankle and Foot Measured in Degrees Right Ankle/Foot ROM WFL No Testing Position Supine Dorsiflexion with Knee Flexed 6 Dorsiflexion with Knee Extended 4 Plantarflexion 10 Left Ankle/Foot ROM WFL No Testing Position Supine Dorsiflexion with Knee Flexed 8 Dorsiflexion with Knee Extended 5 Plantarflexion 10 PT-OP-M Strength Start: 12/30/17 09:37 Freq: Status: Active Protocol: Document 12/29/17 15:15 [facility] (Rec: 12/30/17 14:17 [facility] [email or web address]) Ankle/Foot Strength Ankle and Foot Manual Muscle Testing Right Dorsiflexion (L4) 3 Fair Plantarflexion (S1) 3 Fair Inversion 4- Good- Eversion (S1) 4- Good- Left Dorsiflexion (L4) 3+ Fair+ Plantarflexion (S1) 3+ Fair+ Inversion 4 Good Eversion (S1) 4 Good PT-OP-Q Treatments Start: 12/30/17 09:37 Freq: Status: Active Protocol: Document 03/04/18 15:15 [facility] (Rec: 03/05/18 08:37 [facility] [email or web address]) Gym Equipment Shuttle Recovery Other- 1 Details DL jumps- manual assistance for intial jumping by PT Resistance 37 lbs Shuttle Recovery Platform Stable Unilateral Squats Resistance 50 lbs Shuttle Recovery Platform Stable Bilateral Squats Resistance 87 lbs Shuttle Recovery Platform Stable Shuttle Balance 1 Details Yellow- Static, UE movements with DL and balloon volley; semi-tandem Reps/Duration 15 min Comments Gait belt, MOD A- loses balance with balloon volley Sport Cord 1 Exercise Details forward walking /c backward eccentric Cord/Resistance red/white cord Reps/Duration 1x8 Therapeutic Exercises Standing Exercises 3 Standing Exercise Name lunges Side bilateral Equipment Used // bars Reps/Minutes 10 each Neuro Re-Education Treatment Balance Activities 6 Details A/P balance board with emphasis on ankle PF/DF Comments ankle strategy PT-OP-T Assessment and Plan Start: 12/30/17 09:37 Freq: Status: Active Protocol: Document 03/04/18 15:15 [facility] (Rec: 03/05/18 08:37 [facility] [email or web address]) Physical Therapy Assessment Assessment Summary Assessment Pt with improved pacing of activity but still fatigued after jumps on Shuttle Recovery. Pt continues to require gait belt and manual assistance to maintain balance with balloon volley on unstable surface, lacks appropriate ankle strategy with balance. Physical Therapy Plan Frequency and Duration Frequency of Treatment 2x/Week Duration of Treatment 8 weeks Plan of Care Start Date 02/24/18 Plan of Care End Date 04/21/18 Next Visit Focus/Plan Next Note Type Treatment Note Next Visit Plan progress standing balance- dynamic and static, posture.
--- NOTE | 2018-03-18 14:04 | PT.OTN ---
Current Diagnoses Other abnormalities of gait and mobility (03/04/18) Unspecified abnormalities of gait and mobility (03/04/18) Physical Therapy Treatment Note PT-OP-A Visit Information Start: 12/30/17 09:37 Freq: Status: Active Protocol: Document 03/18/18 14:04 [facility] (Rec: 03/18/18 14:07 [facility] [email or web address]) Out-Patient Physical Therapy Visit Information Visit Information Visit Type Cancellation Visit Note pt with HTN, cancelled this appointment (no intervention performed) Therapy/Recovery PT-OP-C Subjective Start: 12/30/17 09:37 Freq: Status: Active Protocol: Document 03/18/18 14:04 [facility] (Rec: 03/18/18 14:06 [facility] [email or web address]) OP-PT Subjective Patient Comments Patient Comments pt's notes that Heather has not been feeling well today. PT-OP-T Assessment and Plan Start: 12/30/17 09:37 Freq: Status: Active Protocol: Document 03/18/18 14:04 [facility] (Rec: 03/18/18 14:06 [facility] [email or web address]) Physical Therapy Assessment Assessment Summary Assessment BP 185/81 at rest without other interventions. gave pt his BP medication. Recommend to hold this session due to HTN, advised to monitor pt's BP at home as well as any abnormal symptoms. Plan to see pt next week if feeling better. Physical Therapy Plan Next Visit Focus/Plan Next Note Type Treatment Note Next Visit Plan check BP, confer with about pt's condition (still ill?)
[2018-03-24 15:15] VITALS: BP 120/62
--- NOTE | 2018-03-24 15:15 | PT.OTN ---
Current Diagnoses Other abnormalities of gait and mobility (03/24/18) Unspecified abnormalities of gait and mobility (03/24/18) Physical Therapy Treatment Note PT-OP-A Visit Information Start: 12/30/17 09:37 Freq: Status: Active Protocol: Document 03/24/18 15:15 [facility] (Rec: 03/25/18 11:31 [facility] [email or web address]) Out-Patient Physical Therapy Visit Information Visit Information Visit Type Treatment Note Visit Start Time 14:32 Visit Stop Time 15:15 Total Visit Minutes 43 Visit Number 13 Number of INDIRECT SALES EXEC Visits 0 Evaluation Information Evaluation Date 12/29/17 PT-OP-B Current Condition Start: 12/30/17 09:37 Freq: Status: Active Protocol: Document 12/29/17 15:15 [facility] (Rec: 12/30/17 09:50 [facility] [email or web address]) Current Condition History of Current Condition Onset Date increased dizzyness and balance the past 2-3 years Current Complaints history of falls, dizzyness and poor balance History of Current Condition 82 year old male with complaints of dizzyness and balance issues worsening the past few years. He reports vertigo with looking down at times but notes today he is not experiencing this and that it will come and go. He has had a cevaluation for alzheimers and is shows increased cognitive decline and worsening gait instability . He relies on his 's arm for balance with walking and reports he does have walking sticks but does not use them much. Treatment Goals Patient/Caregiver Goals The patient and his are both present for PT and they state their goal is to help improve Jose Armandoe's posture, gait and balance Prior Functional Status Baseline Function- ADL's Needs Assist Baseline Function- Mobility Needs Assist Current Functional Impairments (Reported) Functional Limitations- ADL's assist with donning and doffing shoes and at Functional Limitations- Mobility/Gait Min A with bed mobility, transfers, and gait from the patients Personal Factors Other Personal Factors That May Effect Progressing Alzheimer's Therapy/Recovery PT-OP-C Subjective Start: 12/30/17 09:37 Freq: Status: Active Protocol: Document 03/24/18 15:15 [facility] (Rec: 03/25/18 11:31 [facility] [email or web address]) OP-PT Subjective Patient Comments Patient Comments pt's states that pt is doing better. He had to go to the ER due to weakness and HTN , but imaging was negative. Possible TIA but no definitive diagnosis. PT-OP-D Balance Start: 12/30/17 09:37 Freq: Status: Active Protocol: Document 12/30/17 09:51 [facility] (Rec: 12/30/17 09:57 [facility] [email or web address]) Balance Tests Engle Balance Test Engle Impairment Rating 40 to 59% Impaired (Score 23- 33) Engle Balance Assessment Evaluation Sitting to Standing Ability Minimal Assist Unsupported Stance Supervision- 2 minutes Sitting Unsupported, Feet on Floor Safely- 2 minutes Standing to Sitting Ability Assist, Control w/Hands Transfer Ability Supervision, Verbal Cues Unsupported Stance- Eyes Closed Supervision, 10 seconds Unsupported Stance- Eyes Open Supervision to maintain Reaching Forward Standing Supervision Needed Pick- Up Object From Floor Requires Supervision Look Behind Shoulder - Standing Turns Sideways Only Turning 360 Degrees Turns slowly, but safely Unsupported Stance, Alternating Feet on Assist to Prevent Fall Stair Unsupported Tandem Stance Balance Lost- Step/Stand Unilateral Leg Stance Lifts Leg/Unable to Hold Total Score Engle Total Score (out of 56 points) 26 Engle Impairment Rating 40 to 59% Impaired (Score 23- 33) PT-OP-G Mobility & Gait Start: 12/30/17 09:37 Freq: Status: Active Protocol: Document 12/30/17 09:51 [facility] (Rec: 12/30/17 09:57 [facility] [email or web address]) OP Mobility Evaluation Bed Mobility Rolling SBA Supine to and from Sit Min A Transfers Sit to Stand CGA OP Gait Assessment Gait Gait Assistance Required: Minimum Assistance 1 Person Assist Assistive Devices Assistive Device None Gait Deviations General Gait Pattern Decreased Stride Length Flexed Trunk Lateral Trunk Lean Factors Limiting Gait Function Factors Limiting Gait Function Decreased Strength Difficulty Following Directions Limited Range of Motion Poor Balance Poor Safety Awareness Comments Gait Comments Heather has been walking holding onto his 's arm for balance and has walking sticks but doesn't frequenty use then. He has taken frequent falls. His gait is slow and shuffling with flexed trunk and left lateral trunk lean. PT-OP-H Neuro Start: 03/25/18 11:23 Freq: Status: Active Protocol: Document 03/24/18 15:15 [facility] (Rec: 03/25/18 11:31 [facility] [email or web address]) Vital Signs Blood Pressure Sitting Blood Pressure (90/60-120/80 mmHg) 120/62 Blood Pressure Source Manual Cuff Left Upper Extremity PT-OP-K Range of Motion Start: 12/30/17 09:37 Freq: Status: Active Protocol: Document 12/29/17 15:15 [facility] (Rec: 12/30/17 14:17 [facility] [email or web address]) Ankle and Foot Goniometric Range of Motion Ankle and Foot Measured in Degrees Right Ankle/Foot ROM WFL No Testing Position Supine Dorsiflexion with Knee Flexed 6 Dorsiflexion with Knee Extended 4 Plantarflexion 10 Left Ankle/Foot ROM WFL No Testing Position Supine Dorsiflexion with Knee Flexed 8 Dorsiflexion with Knee Extended 5 Plantarflexion 10 PT-OP-M Strength Start: 12/30/17 09:37 Freq: Status: Active Protocol: Document 12/29/17 15:15 [facility] (Rec: 12/30/17 14:17 [facility] [email or web address]) Ankle/Foot Strength Ankle and Foot Manual Muscle Testing Right Dorsiflexion (L4) 3 Fair Plantarflexion (S1) 3 Fair Inversion 4- Good- Eversion (S1) 4- Good- Left Dorsiflexion (L4) 3+ Fair+ Plantarflexion (S1) 3+ Fair+ Inversion 4 Good Eversion (S1) 4 Good PT-OP-Q Treatments Start: 12/30/17 09:37 Freq: Status: Active Protocol: Document 03/24/18 15:15 [facility] (Rec: 03/25/18 11:31 [facility] [email or web address]) Gym Equipment Shuttle Recovery Other- 1 Details DL jumps Resistance 37 lbs Shuttle Recovery Platform Stable Unilateral Squats Resistance 50 lbs Shuttle Recovery Platform Stable Bilateral Squats Resistance 87 lbs Shuttle Recovery Platform Stable Shuttle Balance 2 Details Blue- static normal and staggered stance Reps/Duration 5 min Comments Gait blet, MOD A 1 Details Yellow- Static, UE movements with DL and balloon volley; semi-tandem Reps/Duration 10 min Comments Gait belt, MOD A- loses balance with balloon volley Gait Training Gait Activity 2 Description gait on foam pads and pods with yoga mat over top Surface uneven Comments forward: EO and EC PT-OP-T Assessment and Plan Start: 12/30/17 09:37 Freq: Status: Active Protocol: Document 03/24/18 15:15 [facility] (Rec: 03/25/18 11:31 [facility] [email or web address]) Physical Therapy Assessment Assessment Summary Assessment Pt's BP WNL prior to session, and pt with improved energy level this date. No c/o worsening weakness, numbness/ tingling, or visual changes. Recommend continuing to monitor BP during this episode of care. Physical Therapy Plan Frequency and Duration Frequency of Treatment 2x/Week Duration of Treatment 8 weeks Plan of Care Start Date 02/24/18 Plan of Care End Date 04/21/18 Next Visit Focus/Plan Next Note Type Treatment Note Next Visit Plan progress standing balance- dynamic and static, posture.
--- NOTE | 2018-03-31 15:13 | PT.OTN ---
Current Diagnoses Other abnormalities of gait and mobility (03/31/18) Unspecified abnormalities of gait and mobility (03/31/18) Physical Therapy Treatment Note PT-OP-A Visit Information Start: 12/30/17 09:37 Freq: Status: Active Protocol: Document 03/31/18 15:13 RCC (Rec: 03/31/18 17:29 [facility] [email or web address]) Out-Patient Physical Therapy Visit Information Visit Information Visit Type Treatment Note Visit Start Time 14:30 Visit Stop Time 15:13 Total Visit Minutes 43 Visit Number 14 Number of LAB AIDE Visits 0 Evaluation Information Evaluation Date 12/29/17 PT-OP-B Current Condition Start: 12/30/17 09:37 Freq: Status: Active Protocol: Document 12/29/17 15:15 [facility] (Rec: 12/30/17 09:50 [facility] [email or web address]) Current Condition History of Current Condition Onset Date increased dizzyness and balance the past 2-3 years Current Complaints history of falls, dizzyness and poor balance History of Current Condition 82 year old male with complaints of dizzyness and balance issues worsening the past few years. He reports vertigo with looking down at times but notes today he is not experiencing this and that it will come and go. He has had a cevaluation for alzheimers and is shows increased cognitive decline and worsening gait instability . He relies on his 's arm for balance with walking and reports he does have walking sticks but does not use them much. Treatment Goals Patient/Caregiver Goals The patient and his are both present for PT and they state their goal is to help improve Jose Armandoe's posture, gait and balance Prior Functional Status Baseline Function- ADL's Needs Assist Baseline Function- Mobility Needs Assist Current Functional Impairments (Reported) Functional Limitations- ADL's assist with donning and doffing shoes and at Functional Limitations- Mobility/Gait Min A with bed mobility, transfers, and gait from the patients Personal Factors Other Personal Factors That May Effect Progressing Alzheimer's Therapy/Recovery PT-OP-C Subjective Start: 12/30/17 09:37 Freq: Status: Active Protocol: Document 03/31/18 15:13 [facility] (Rec: 03/31/18 17:29 [facility] [email or web address]) OP-PT Subjective Patient Comments Patient Comments Pt's states that pt has been doing better this week, he has been walking outdoors for exercise. PT-OP-D Balance Start: 12/30/17 09:37 Freq: Status: Active Protocol: Document 12/30/17 09:51 [facility] (Rec: 12/30/17 09:57 [facility] [email or web address]) Balance Tests Engle Balance Test Engle Impairment Rating 40 to 59% Impaired (Score 23- 33) Engle Balance Assessment Evaluation Sitting to Standing Ability Minimal Assist Unsupported Stance Supervision- 2 minutes Sitting Unsupported, Feet on Floor Safely- 2 minutes Standing to Sitting Ability Assist, Control w/Hands Transfer Ability Supervision, Verbal Cues Unsupported Stance- Eyes Closed Supervision, 10 seconds Unsupported Stance- Eyes Open Supervision to maintain Reaching Forward Standing Supervision Needed Pick- Up Object From Floor Requires Supervision Look Behind Shoulder - Standing Turns Sideways Only Turning 360 Degrees Turns slowly, but safely Unsupported Stance, Alternating Feet on Assist to Prevent Fall Stair Unsupported Tandem Stance Balance Lost- Step/Stand Unilateral Leg Stance Lifts Leg/Unable to Hold Total Score Engle Total Score (out of 56 points) 26 Engle Impairment Rating 40 to 59% Impaired (Score 23- 33) PT-OP-G Mobility & Gait Start: 12/30/17 09:37 Freq: Status: Active Protocol: Document 12/30/17 09:51 [facility] (Rec: 12/30/17 09:57 [facility] [email or web address]) OP Mobility Evaluation Bed Mobility Rolling SBA Supine to and from Sit Min A Transfers Sit to Stand CGA OP Gait Assessment Gait Gait Assistance Required: Minimum Assistance 1 Person Assist Assistive Devices Assistive Device None Gait Deviations General Gait Pattern Decreased Stride Length Flexed Trunk Lateral Trunk Lean Factors Limiting Gait Function Factors Limiting Gait Function Decreased Strength Difficulty Following Directions Limited Range of Motion Poor Balance Poor Safety Awareness Comments Gait Comments Heather has been walking holding onto his 's arm for balance and has walking sticks but doesn't frequenty use then. He has taken frequent falls. His gait is slow and shuffling with flexed trunk and left lateral trunk lean. PT-OP-H Neuro Start: 03/25/18 11:23 Freq: Status: Active Protocol: Document 03/24/18 15:15 [facility] (Rec: 03/25/18 11:31 [facility] [email or web address]) Vital Signs Blood Pressure Sitting Blood Pressure (90/60-120/80 mmHg) 120/62 Blood Pressure Source Manual Cuff Left Upper Extremity PT-OP-K Range of Motion Start: 12/30/17 09:37 Freq: Status: Active Protocol: Document 12/29/17 15:15 [facility] (Rec: 12/30/17 14:17 [facility] [email or web address]) Ankle and Foot Goniometric Range of Motion Ankle and Foot Measured in Degrees Right Ankle/Foot ROM WFL No Testing Position Supine Dorsiflexion with Knee Flexed 6 Dorsiflexion with Knee Extended 4 Plantarflexion 10 Left Ankle/Foot ROM WFL No Testing Position Supine Dorsiflexion with Knee Flexed 8 Dorsiflexion with Knee Extended 5 Plantarflexion 10 PT-OP-M Strength Start: 12/30/17 09:37 Freq: Status: Active Protocol: Document 12/29/17 15:15 [facility] (Rec: 12/30/17 14:17 [facility] [email or web address]) Ankle/Foot Strength Ankle and Foot Manual Muscle Testing Right Dorsiflexion (L4) 3 Fair Plantarflexion (S1) 3 Fair Inversion 4- Good- Eversion (S1) 4- Good- Left Dorsiflexion (L4) 3+ Fair+ Plantarflexion (S1) 3+ Fair+ Inversion 4 Good Eversion (S1) 4 Good PT-OP-Q Treatments Start: 12/30/17 09:37 Freq: Status: Active Protocol: Document 03/31/18 15:13 RCC (Rec: 03/31/18 17:29 [facility] [email or web address]) Gym Equipment Shuttle Recovery Other- 1 Details DL jumps Resistance 37 lbs Shuttle Recovery Platform Stable Unilateral Squats Resistance 50 lbs Shuttle Recovery Platform Stable Bilateral Squats Resistance 87 lbs Shuttle Recovery Platform Stable Shuttle Balance 2 Details Blue- static normal Reps/Duration 18 min Comments Gait belt, MOD A; DL UE flexion, balloon volley 1 Details Yellow- Static, UE movements with DL and balloon volley; semi-tandem Reps/Duration 8 min Comments Gait belt, MOD A- loses balance with balloon volley Therapeutic Exercises Standing Exercises 2 Standing Exercise Name lateral walking Side bilateral Resistance L2 Equipment Used standing bar Reps/Minutes 2 laps each Neuro Re-Education Treatment Other Activities step up/down Details step up/down on BOSU (blue) Reps/Duration 10 each LE Comments backward stepping eccentric. PT-OP-T Assessment and Plan Start: 12/30/17 09:37 Freq: Status: Active Protocol: Document 03/31/18 15:13 [facility] (Rec: 03/31/18 17:29 [facility] [email or web address]) Physical Therapy Assessment Assessment Summary Assessment Pt with improved activity tolerance this session compared to last week, but still fatiguing greater than prior to HTN and ER visit on . Physical Therapy Plan Frequency and Duration Frequency of Treatment 2x/Week Duration of Treatment 8 weeks Plan of Care Start Date 02/24/18 Plan of Care End Date 04/21/18 Next Visit Focus/Plan Next Note Type Treatment Note Next Visit Plan prog. standing balance, posture, LE stability
--- NOTE | 2018-04-07 15:15 | PT.OTN ---
Current Diagnoses Other abnormalities of gait and mobility (04/07/18) Unspecified abnormalities of gait and mobility (04/07/18) Physical Therapy Treatment Note PT-OP-A Visit Information Start: 12/30/17 09:37 Freq: Status: Active Protocol: Document 04/07/18 15:15 [facility] (Rec: 04/07/18 16:59 [facility] [email or web address]) Out-Patient Physical Therapy Visit Information Visit Information Visit Type Treatment Note Visit Start Time 14:30 Visit Stop Time 15:15 Total Visit Minutes 45 Visit Number 15 Number of [employer]NALYSIS [employer] Visits 0 Evaluation Information Evaluation Date 12/29/17 PT-OP-B Current Condition Start: 12/30/17 09:37 Freq: Status: Active Protocol: Document 12/29/17 15:15 [facility] (Rec: 12/30/17 09:50 [facility] [email or web address]) Current Condition History of Current Condition Onset Date increased dizzyness and balance the past 2-3 years Current Complaints history of falls, dizzyness and poor balance History of Current Condition 82 year old male with complaints of dizzyness and balance issues worsening the past few years. He reports vertigo with looking down at times but notes today he is not experiencing this and that it will come and go. He has had a cevaluation for alzheimers and is shows increased cognitive decline and worsening gait instability . He relies on his 's arm for balance with walking and reports he does have walking sticks but does not use them much. Treatment Goals Patient/Caregiver Goals The patient and his are both present for PT and they state their goal is to help improve Jose Armandoe's posture, gait and balance Prior Functional Status Baseline Function- ADL's Needs Assist Baseline Function- Mobility Needs Assist Current Functional Impairments (Reported) Functional Limitations- ADL's assist with donning and doffing shoes and at Functional Limitations- Mobility/Gait Min A with bed mobility, transfers, and gait from the patients Personal Factors Other Personal Factors That May Effect Progressing Alzheimer's Therapy/Recovery PT-OP-C Subjective Start: 12/30/17 09:37 Freq: Status: Active Protocol: Document 04/07/18 15:15 [facility] (Rec: 04/07/18 16:59 [facility] [email or web address]) OP-PT Subjective Patient Comments Patient Comments Pt states he is doing well today. No new complaints from pt or . PT-OP-D Balance Start: 12/30/17 09:37 Freq: Status: Active Protocol: Document 12/30/17 09:51 [facility] (Rec: 12/30/17 09:57 [facility] [email or web address]) Balance Tests Engle Balance Test Engle Impairment Rating 40 to 59% Impaired (Score 23- 33) Engle Balance Assessment Evaluation Sitting to Standing Ability Minimal Assist Unsupported Stance Supervision- 2 minutes Sitting Unsupported, Feet on Floor Safely- 2 minutes Standing to Sitting Ability Assist, Control w/Hands Transfer Ability Supervision, Verbal Cues Unsupported Stance- Eyes Closed Supervision, 10 seconds Unsupported Stance- Eyes Open Supervision to maintain Reaching Forward Standing Supervision Needed Pick- Up Object From Floor Requires Supervision Look Behind Shoulder - Standing Turns Sideways Only Turning 360 Degrees Turns slowly, but safely Unsupported Stance, Alternating Feet on Assist to Prevent Fall Stair Unsupported Tandem Stance Balance Lost- Step/Stand Unilateral Leg Stance Lifts Leg/Unable to Hold Total Score Engle Total Score (out of 56 points) 26 Engle Impairment Rating 40 to 59% Impaired (Score 23- 33) PT-OP-G Mobility & Gait Start: 12/30/17 09:37 Freq: Status: Active Protocol: Document 12/30/17 09:51 [facility] (Rec: 12/30/17 09:57 [facility] [email or web address]) OP Mobility Evaluation Bed Mobility Rolling SBA Supine to and from Sit Min A Transfers Sit to Stand CGA OP Gait Assessment Gait Gait Assistance Required: Minimum Assistance 1 Person Assist Assistive Devices Assistive Device None Gait Deviations General Gait Pattern Decreased Stride Length Flexed Trunk Lateral Trunk Lean Factors Limiting Gait Function Factors Limiting Gait Function Decreased Strength Difficulty Following Directions Limited Range of Motion Poor Balance Poor Safety Awareness Comments Gait Comments Heather has been walking holding onto his 's arm for balance and has walking sticks but doesn't frequenty use then. He has taken frequent falls. His gait is slow and shuffling with flexed trunk and left lateral trunk lean. PT-OP-H Neuro Start: 03/25/18 11:23 Freq: Status: Active Protocol: Document 03/24/18 15:15 [facility] (Rec: 03/25/18 11:31 [facility] [email or web address]) Vital Signs Blood Pressure Sitting Blood Pressure (90/60-120/80 mmHg) 120/62 Blood Pressure Source Manual Cuff Left Upper Extremity PT-OP-K Range of Motion Start: 12/30/17 09:37 Freq: Status: Active Protocol: Document 12/29/17 15:15 [facility] (Rec: 12/30/17 14:17 [facility] [email or web address]) Ankle and Foot Goniometric Range of Motion Ankle and Foot Measured in Degrees Right Ankle/Foot ROM WFL No Testing Position Supine Dorsiflexion with Knee Flexed 6 Dorsiflexion with Knee Extended 4 Plantarflexion 10 Left Ankle/Foot ROM WFL No Testing Position Supine Dorsiflexion with Knee Flexed 8 Dorsiflexion with Knee Extended 5 Plantarflexion 10 PT-OP-M Strength Start: 12/30/17 09:37 Freq: Status: Active Protocol: Document 12/29/17 15:15 [facility] (Rec: 12/30/17 14:17 [facility] [email or web address]) Ankle/Foot Strength Ankle and Foot Manual Muscle Testing Right Dorsiflexion (L4) 3 Fair Plantarflexion (S1) 3 Fair Inversion 4- Good- Eversion (S1) 4- Good- Left Dorsiflexion (L4) 3+ Fair+ Plantarflexion (S1) 3+ Fair+ Inversion 4 Good Eversion (S1) 4 Good PT-OP-Q Treatments Start: 12/30/17 09:37 Freq: Status: Active Protocol: Document 04/07/18 15:15 [facility] (Rec: 04/07/18 16:59 [facility] [email or web address]) Gym Equipment Shuttle Recovery Other- 1 Details DL jumps Resistance 37 lbs Shuttle Recovery Platform Stable Unilateral Squats Resistance 50 lbs Shuttle Recovery Platform Unstable Bilateral Squats Resistance 87 lbs Shuttle Recovery Platform Unstable Shuttle Balance 2 Details Blue- static normal Reps/Duration 20 min Comments Gait belt, MOD A; DL UE flexion, reaching, turns,& balloon volley Sport Cord 1 Exercise Details forward walking /c backward eccentric Cord/Resistance red/white cord Reps/Duration 1x8 Comments attempted step over hurdles Therapeutic Exercises Standing Exercises hip extension Standing Exercise Name hip extension in // bars Side bilateral Reps/Minutes 10 each 3 Standing Exercise Name lunges Side bilateral Equipment Used // bars Reps/Minutes 10 each PT-OP-T Assessment and Plan Start: 12/30/17 09:37 Freq: Status: Active Protocol: Document 04/07/18 15:15 [facility] (Rec: 04/07/18 16:59 [facility] [email or web address]) Physical Therapy Assessment Assessment Summary Assessment Pt unable to step over hurdles while performing resisted gait backward due to impaired standing balance, and poor posture. Pt is to participate in [facility] [employer] program starting next week. Physical Therapy Plan Frequency and Duration Frequency of Treatment 2x/Week Duration of Treatment 8 weeks Plan of Care Start Date 02/24/18 Plan of Care End Date 04/21/18 Next Visit Focus/Plan Next Note Type Re-Evaluation Next Visit Plan assessment for appropriate inteventions/participation in [employer] program
--- NOTE | 2018-04-12 15:37 | PT.OTRE ---
Current Diagnoses Parkinson's disease (04/12/18) Other abnormalities of gait and mobility (04/12/18) Unspecified abnormalities of gait and mobility (04/12/18) History of falling (04/12/18) Past Medical History (Last Updated 03/18/18 @ 21:26 by Cecille Hanks RN) Parkinson disease (Acute) BPH (benign prostatic hyperplasia) (Chronic 2011) Cold hands and feet (Chronic) Hearing loss (Chronic 2011) Hypothyroidism (Chronic Unknown) Low testosterone (Chronic Unknown) Memory loss (Chronic) No sense of smell (Chronic) Peripheral neuropathy (Chronic ~2013) Vertigo (Chronic 2011) Chickenpox (Resolved) Colon polyps (Resolved 2011) Elevated cortisol level (Resolved 01/2016) Melanoma (Resolved ~03/2017) Shoulder pain (Resolved 2015) Skin lesions (Resolved) Surgical History (Last Reviewed 03/18/18 @ 20:07 by Eren Hayden MD) Hx of melanoma excision (Resolved 03/2017) Status post appendectomy (~194) Provider Visit Care Team Role Provider Type Judy Ji PA-C Attending Provider Advanced Human Resources Recruiter Family Provider Primary Care Provider Specialty: Family Practice Address: [address] [place] [address] Email: [email or web address] Physical Therapy Re-Evaluation PT-OP-A Visit Information Start: 12/30/17 09:37 Freq: Status: Active Protocol: Document 04/12/18 13:45 AMB (Rec: 04/12/18 15:11 AMB [email or web address]) Out-Patient Physical Therapy Visit Information Visit Information Visit Type Re-Evaluation Visit Note G code 07/22 Visit Start Time 13:45 Visit Stop Time 14:45 Total Visit Minutes 60 Visit Number 16 Evaluation Information Evaluation Date 12/29/17 PT-OP-B Current Condition Start: 12/30/17 09:37 Freq: Status: Active Protocol: Document 04/12/18 13:45 AMB (Rec: 04/12/18 15:36 AMB [email or web address]) Current Condition History of Current Condition Current Complaints Parkinson's disease History of Current Condition Recent diagnosis, pt's reports improvement with levadopa/carbidopa. Seeing neurologist for first time this week. Pt's reports freezing. He has a cane and a walker at home but doesn't really use them. They have 16 stairs to enter their home with one railing PT-OP-C Subjective Start: 12/30/17 09:37 Freq: Status: Active Protocol: Document 04/12/18 13:45 AMB (Rec: 04/12/18 15:11 AMB [email or web address]) OP-PT Subjective Patient Comments Patient Comments Pt's states that the patietn had a fall a few days ago, he was turning in the kitchen and fell on his left elbow. He was able to get back up with using a chair and UE support. PT-OP-D Balance Start: 12/30/17 09:37 Freq: Status: Active Protocol: Document 04/12/18 13:45 AMB (Rec: 04/12/18 15:11 AMB [email or web address]) Balance Tests Romberg Romberg unable Single Limb Standing Single Limb- Right unable Single Limb- Left unable Other Other Balance Tests Performed NBOS EC: ankle sway, CGA but able to perform for 10 seconds without LOB. PT-OP-E Functional Tests Start: 04/12/18 15:11 Freq: Status: Active Protocol: Document 04/12/18 13:45 AMB (Rec: 04/12/18 15:14 AMB [email or web address]) Functional Tests 6 Minute Walk Test Distance 685 feet Device Used none Five Times Sit to Stand Test Score 19 sec PT-OP-G Mobility & Gait Start: 12/30/17 09:37 Freq: Status: Active Protocol: Document 04/12/18 13:45 AMB (Rec: 04/12/18 15:11 AMB [email or web address]) OP Mobility Evaluation Transfers Sit to Stand needs UE support OP Gait Assessment Comments Gait Comments Ambulates without AD, lack of trunk rotation, arm swing, ankle dorsiflexion during swing. PT-OP-H Neuro Start: 03/25/18 11:23 Freq: Status: Active Protocol: Document 03/24/18 15:15 RCC (Rec: 03/25/18 11:31 RCC [email or web address]) Vital Signs Blood Pressure Sitting Blood Pressure (90/60-120/80 mmHg) 120/62 Blood Pressure Source Manual Cuff Left Upper Extremity PT-OP-K Range of Motion Start: 12/30/17 09:37 Freq: Status: Active Protocol: Document 12/29/17 15:15 AMH (Rec: 12/30/17 14:17 AMH [email or web address]) Ankle and Foot Goniometric Range of Motion Ankle and Foot Measured in Degrees Right Ankle/Foot ROM WFL No Testing Position Supine Dorsiflexion with Knee Flexed 6 Dorsiflexion with Knee Extended 4 Plantarflexion 10 Left Ankle/Foot ROM WFL No Testing Position Supine Dorsiflexion with Knee Flexed 8 Dorsiflexion with Knee Extended 5 Plantarflexion 10 PT-OP-M Strength Start: 12/30/17 09:37 Freq: Status: Active Protocol: Document 12/29/17 15:15 AMH (Rec: 12/30/17 14:17 AMH [email or web address]) Ankle/Foot Strength Ankle and Foot Manual Muscle Testing Right Dorsiflexion (L4) 3 Fair Plantarflexion (S1) 3 Fair Inversion 4- Good- Eversion (S1) 4- Good- Left Dorsiflexion (L4) 3+ Fair+ Plantarflexion (S1) 3+ Fair+ Inversion 4 Good Eversion (S1) 4 Good PT-OP-Q Treatments Start: 12/30/17 09:37 Freq: Status: Active Protocol: Document 04/12/18 13:45 AMB (Rec: 04/12/18 15:22 AMB [email or web address]) Neuro Re-Education Treatment Balance Activities 6 Details Forward stepping with reach Comments pt required extensive physical cueing for appropriate form, does not do well too many verbal cues. 5 Details Backward stepping Reps/Duration 5 PT-OP-T Assessment and Plan Start: 12/30/17 09:37 Freq: Status: Active Protocol: Document 04/12/18 13:45 AMB (Rec: 04/12/18 15:33 AMB [email or web address]) Physical Therapy Assessment Rehab Potential Rehabilitation Potential Fair Evaluation Complexity Number of Personal Factors/Comorbidities 1-2 Number of Body Systems Impaired 4 or More Clinical Presentation at Evaluation Evolving Impairments Impairments Activity Tolerance Balance Coordination Functional Activities Functional Mobility Gait Posture ROM Sensation Strength Transfers Vestibular Other Concerns Fall Risk high Goals Four Impairment unable to perform sit-stand without use of hands Short Term Goal (STG) The patient will be independent with a toilet transfer. STG Duration 4 weeks Detention Goal (LTG) improve functional squat and balance improving ability for Heather to sit and stand without use of his hands LTG Duration 8 weeks Three Impairment poor postural habits contributing to forward trunk lean Bending Roll Hand Goal (LTG) Heather is given a strengthening program for improved posture to decrease forward lean and decreased loss of balance in a forward direction LTG Duration 8 weeks Two Impairment Gait Short Term Goal (STG) The patient will ambulate with his for 15 minutes without forward lean, shuffling gait. STG Duration 4 weeks Bending Roll Hand Goal (LTG) The patient will show improved 6MWT to 850 feet. LTG Duration 8 weeks One Impairment poor ankle ROM and calf tightness limiting ankle DF for gait/balance Short Term Goal (STG) Improve ankle ROM and calf flexibility to help improve ankle strategy for balance reactions STG Duration 8 weeks Assessment Summary Assessment Considering the patient's deficits, he will need his to help him considerably with his HEP. Pt is a high fall risk, discussed safety measures with his . Will work on functional transfers and vestibular function as well. Pt and his not as concerned about fine motor control at this time. Physical Therapy Plan Frequency and Duration Frequency of Treatment 4x/Week Duration of Treatment 4 weeks Plan of Care Start Date 04/12/18 Plan of Care End Date 05/10/18 Therapeutic Interventions Therapeutic Interventions Balance Training Gait Training Home Exercise Program Manual Therapy Neuromuscular Re-education Therapeutic Activities Therapeutic Exercises Vestibular Rehabilitation Next Visit Focus/Plan Next Note Type Treatment Note Next Visit Plan Assess vestibular function, progress LSVT BIG program
--- NOTE | 2018-04-12 15:39 | PT.OPPOC ---
Current Diagnoses Parkinson's disease (04/12/18) Other abnormalities of gait and mobility (04/12/18) Unspecified abnormalities of gait and mobility (04/12/18) History of falling (04/12/18) Provider Visit Care Team Role Provider Type Judy Ji PA-C Attending Provider Advanced Supervisor Capacitor Processing Family Provider Primary Care Provider Specialty: Family Practice Address: [address] [place] [address], [facility] Email: [email or web address] Plan Of Care PT-OP-T Assessment and Plan Start: 12/30/17 09:37 Freq: Status: Active Protocol: Document 04/12/18 13:45 AMB (Rec: 04/12/18 15:33 AMB [email or web address]) Physical Therapy Assessment Rehab Potential Rehabilitation Potential Fair Evaluation Complexity Number of Personal Factors/Comorbidities 1-2 Number of Body Systems Impaired 4 or More Clinical Presentation at Evaluation Evolving Impairments Impairments Activity Tolerance Balance Coordination Functional Activities Functional Mobility Gait Posture ROM Sensation Strength Transfers Vestibular Other Concerns Fall Risk high Goals Four Impairment unable to perform sit-stand without use of hands Short Term Goal (STG) The patient will be independent with a toilet transfer. STG Duration 4 weeks Vacuum Drum Drier Operator Goal (LTG) improve functional squat and balance improving ability for Heather to sit and stand without use of his hands LTG Duration 8 weeks Three Impairment poor postural habits contributing to forward trunk lean Vacuum Drum Drier Operator Goal (LTG) Heather is given a strengthening program for improved posture to decrease forward lean and decreased loss of balance in a forward direction LTG Duration 8 weeks Two Impairment Gait Short Term Goal (STG) The patient will ambulate with his for 15 minutes without forward lean, shuffling gait. STG Duration 4 weeks Vacuum Drum Drier Operator Goal (LTG) The patient will show improved 6MWT to 850 feet. LTG Duration 8 weeks One Impairment poor ankle ROM and calf tightness limiting ankle DF for gait/balance Short Term Goal (STG) Improve ankle ROM and calf flexibility to help improve ankle strategy for balance reactions STG Duration 8 weeks Assessment Summary Assessment Considering the patient's deficits, he will need his to help him considerably with his HEP. Pt is a high fall risk, discussed safety measures with his . Will work on functional transfers and vestibular function as well. Pt and his not as concerned about fine motor control at this time. Physical Therapy Plan Frequency and Duration Frequency of Treatment 4x/Week Duration of Treatment 4 weeks Plan of Care Start Date 04/12/18 Plan of Care End Date 05/10/18 Therapeutic Interventions Therapeutic Interventions Balance Training Gait Training Home Exercise Program Manual Therapy Neuromuscular Re-education Therapeutic Activities Therapeutic Exercises Vestibular Rehabilitation Next Visit Focus/Plan Next Note Type Treatment Note Next Visit Plan Assess vestibular function, progress LSVT BIG program Plan of Care Dates Plan of Care Start Date 04/12/18 Plan of Care End Date 05/10/18 Please Sign and Return: I have reviewed this Plan of Care and certify that the skilled therapy services above are required to meet the patient?s needs. Physician Signature Date Printed Name and Credentials Clinical Instructor Signature Printed Name and Credentials
--- NOTE | 2018-04-13 08:30 | PT.OTN ---
Current Diagnoses Other abnormalities of gait and mobility (04/13/18) Unspecified abnormalities of gait and mobility (04/13/18) Physical Therapy Treatment Note PT-OP-A Visit Information Start: 12/30/17 09:37 Freq: Status: Active Protocol: Document 04/13/18 08:30 AMB (Rec: 04/13/18 09:30 AMB [email or web address]) Out-Patient Physical Therapy Visit Information Visit Information Visit Type Treatment Note Visit Note 08/22 Visit Start Time 08:30 Visit Stop Time 07:30 Total Visit Minutes 60 Visit Number 17 PT-OP-B Current Condition Start: 12/30/17 09:37 Freq: Status: Active Protocol: Document 04/12/18 13:45 AMB (Rec: 04/12/18 15:36 AMB [email or web address]) Current Condition History of Current Condition Current Complaints Parkinson's disease History of Current Condition Recent diagnosis, pt's reports improvement with levadopa/carbidopa. Seeing neurologist for first time this week. Pt's reports freezing. He has a cane and a walker at home but doesn't really use them. They have 16 stairs to enter their home with one railing PT-OP-C Subjective Start: 12/30/17 09:37 Freq: Status: Active Protocol: Document 04/13/18 08:30 AMB (Rec: 04/13/18 09:30 AMB [email or web address]) OP-PT Subjective Patient Comments Patient Comments Pt and his tried to do a few of the exercises last night. PT-OP-D Balance Start: 12/30/17 09:37 Freq: Status: Active Protocol: Document 04/12/18 13:45 AMB (Rec: 04/12/18 15:11 AMB [email or web address]) Balance Tests Romberg Romberg unable Single Limb Standing Single Limb- Right unable Single Limb- Left unable Other Other Balance Tests Performed NBOS EC: ankle sway, CGA but able to perform for 10 seconds without LOB. PT-OP-E Functional Tests Start: 04/12/18 15:11 Freq: Status: Active Protocol: Document 04/12/18 13:45 AMB (Rec: 04/12/18 15:14 AMB [email or web address]) Functional Tests 6 Minute Walk Test Distance 685 feet Device Used none Five Times Sit to Stand Test Score 19 sec PT-OP-G Mobility & Gait Start: 12/30/17 09:37 Freq: Status: Active Protocol: Document 04/12/18 13:45 AMB (Rec: 04/12/18 15:11 AMB [email or web address]) OP Mobility Evaluation Transfers Sit to Stand needs UE support OP Gait Assessment Comments Gait Comments Ambulates without AD, lack of trunk rotation, arm swing, ankle dorsiflexion during swing. PT-OP-H Neuro Start: 03/25/18 11:23 Freq: Status: Active Protocol: Document 03/24/18 15:15 RCC (Rec: 03/25/18 11:31 RCC [email or web address]) Vital Signs Blood Pressure Sitting Blood Pressure (90/60-120/80 mmHg) 120/62 Blood Pressure Source Manual Cuff Left Upper Extremity PT-OP-K Range of Motion Start: 12/30/17 09:37 Freq: Status: Active Protocol: Document 12/29/17 15:15 AMH (Rec: 12/30/17 14:17 AMH [email or web address]) Ankle and Foot Goniometric Range of Motion Ankle and Foot Measured in Degrees Right Ankle/Foot ROM WFL No Testing Position Supine Dorsiflexion with Knee Flexed 6 Dorsiflexion with Knee Extended 4 Plantarflexion 10 Left Ankle/Foot ROM WFL No Testing Position Supine Dorsiflexion with Knee Flexed 8 Dorsiflexion with Knee Extended 5 Plantarflexion 10 PT-OP-M Strength Start: 12/30/17 09:37 Freq: Status: Active Protocol: Document 12/29/17 15:15 AMH (Rec: 12/30/17 14:17 AMH [email or web address]) Ankle/Foot Strength Ankle and Foot Manual Muscle Testing Right Dorsiflexion (L4) 3 Fair Plantarflexion (S1) 3 Fair Inversion 4- Good- Eversion (S1) 4- Good- Left Dorsiflexion (L4) 3+ Fair+ Plantarflexion (S1) 3+ Fair+ Inversion 4 Good Eversion (S1) 4 Good PT-OP-Q Treatments Start: 12/30/17 09:37 Freq: Status: Active Protocol: Document 04/13/18 08:30 AMB (Rec: 04/14/18 08:11 AMB [email or web address]) Therapeutic Activity Therapeutic Activity 2 Name Sit to stand Reps/Minutes 15 min 1 Name Bed mobility training Reps/Minutes 12minutes Neuro Re-Education Treatment Balance Activities 6 Details Forward stepping with reach Reps/Duration 20 Comments limited verbal cues, pt did well 5 Details Backward stepping Reps/Duration 10 each side Comments UE support 4 Details Side stepping Reps/Duration 10 each side Comments UE support 3 Details Rock and reach Reps/Duration 2x12 Comments with UE support 2 Details WBOS trunk rotation Comments with UE support PT-OP-T Assessment and Plan Start: 12/30/17 09:37 Freq: Status: Active Protocol: Document 04/13/18 08:30 AMB (Rec: 04/14/18 08:11 AMB [email or web address]) Physical Therapy Assessment Assessment Summary Assessment Pt did well with mirroring exercises. Will reinforce bed mobility and sit to stand form. Physical Therapy Plan Frequency and Duration Frequency of Treatment 4x/Week Duration of Treatment 4 weeks Plan of Care Start Date 04/12/18 Plan of Care End Date 05/10/18 Next Visit Focus/Plan Next Note Type Treatment Note Next Visit Plan No dizziness with supine to sit transfers. Progress independence with HEP.
--- NOTE | 2018-04-15 16:03 | PT.OTN ---
Current Diagnoses Other abnormalities of gait and mobility (04/15/18) Unspecified abnormalities of gait and mobility (04/15/18) Physical Therapy Treatment Note PT-OP-A Visit Information Start: 12/30/17 09:37 Freq: Status: Active Protocol: Document 04/15/18 13:45 AMB (Rec: 04/15/18 16:01 AMB [email or web address]) Out-Patient Physical Therapy Visit Information Visit Information Visit Type Treatment Note Visit Note 09/19 Visit Start Time 13:45 Visit Stop Time 14:30 Total Visit Minutes 45 Visit Number 18 Evaluation Information Evaluation Date 12/29/17 PT-OP-B Current Condition Start: 12/30/17 09:37 Freq: Status: Active Protocol: Document 04/12/18 13:45 AMB (Rec: 04/12/18 15:36 AMB [email or web address]) Current Condition History of Current Condition Current Complaints Parkinson's disease History of Current Condition Recent diagnosis, pt's reports improvement with levadopa/carbidopa. Seeing neurologist for first time this week. Pt's reports freezing. He has a cane and a walker at home but doesn't really use them. They have 16 stairs to enter their home with one railing PT-OP-C Subjective Start: 12/30/17 09:37 Freq: Status: Active Protocol: Document 04/15/18 13:45 AMB (Rec: 04/15/18 16:03 AMB [email or web address]) OP-PT Subjective Patient Comments Patient Comments Pt and his state that he saw a new neurologist who increased his levodopa carbidopa yesterday. they tried to do some of hte exercises this morning. PT-OP-D Balance Start: 12/30/17 09:37 Freq: Status: Active Protocol: Document 04/12/18 13:45 AMB (Rec: 04/12/18 15:11 AMB [email or web address]) Balance Tests Romberg Romberg unable Single Limb Standing Single Limb- Right unable Single Limb- Left unable Other Other Balance Tests Performed NBOS EC: ankle sway, CGA but able to perform for 10 seconds without LOB. PT-OP-E Functional Tests Start: 04/12/18 15:11 Freq: Status: Active Protocol: Document 04/12/18 13:45 AMB (Rec: 04/12/18 15:14 AMB [email or web address]) Functional Tests 6 Minute Walk Test Distance 685 feet Device Used none Five Times Sit to Stand Test Score 19 sec PT-OP-G Mobility & Gait Start: 12/30/17 09:37 Freq: Status: Active Protocol: Document 04/12/18 13:45 AMB (Rec: 04/12/18 15:11 AMB [email or web address]) OP Mobility Evaluation Transfers Sit to Stand needs UE support OP Gait Assessment Comments Gait Comments Ambulates without AD, lack of trunk rotation, arm swing, ankle dorsiflexion during swing. PT-OP-H Neuro Start: 03/25/18 11:23 Freq: Status: Active Protocol: Document 03/24/18 15:15 RCC (Rec: 03/25/18 11:31 RCC [email or web address]) Vital Signs Blood Pressure Sitting Blood Pressure (90/60-120/80 mmHg) 120/62 Blood Pressure Source Manual Cuff Left Upper Extremity PT-OP-K Range of Motion Start: 12/30/17 09:37 Freq: Status: Active Protocol: Document 12/29/17 15:15 AMH (Rec: 12/30/17 14:17 AMH [email or web address]) Ankle and Foot Goniometric Range of Motion Ankle and Foot Measured in Degrees Right Ankle/Foot ROM WFL No Testing Position Supine Dorsiflexion with Knee Flexed 6 Dorsiflexion with Knee Extended 4 Plantarflexion 10 Left Ankle/Foot ROM WFL No Testing Position Supine Dorsiflexion with Knee Flexed 8 Dorsiflexion with Knee Extended 5 Plantarflexion 10 PT-OP-M Strength Start: 12/30/17 09:37 Freq: Status: Active Protocol: Document 12/29/17 15:15 AMH (Rec: 12/30/17 14:17 AMH [email or web address]) Ankle/Foot Strength Ankle and Foot Manual Muscle Testing Right Dorsiflexion (L4) 3 Fair Plantarflexion (S1) 3 Fair Inversion 4- Good- Eversion (S1) 4- Good- Left Dorsiflexion (L4) 3+ Fair+ Plantarflexion (S1) 3+ Fair+ Inversion 4 Good Eversion (S1) 4 Good PT-OP-Q Treatments Start: 12/30/17 09:37 Freq: Status: Active Protocol: Document 04/15/18 13:45 AMB (Rec: 04/15/18 16:01 AMB [email or web address]) Therapeutic Activity Therapeutic Activity 2 Name Sit to stand Reps/Minutes 5 1 Name Discussion of handles in bathroom for safety Comments tried horizontal vs vertical placement Neuro Re-Education Treatment Balance Activities 6 Details Forward stepping with reach Reps/Duration 20 5 Details Backward stepping Reps/Duration 10 each side Comments UE support 4 Details Side stepping Reps/Duration 10 each side Comments UE support 3 Details Rock and reach Reps/Duration 2x12 Comments with UE support 2 Details WBOS trunk rotation Comments with UE support PT-OP-T Assessment and Plan Start: 12/30/17 09:37 Freq: Status: Active Protocol: Document 04/15/18 13:45 AMB (Rec: 04/15/18 16:01 AMB [email or web address]) Physical Therapy Assessment Assessment Summary Assessment Pt required more physical cueing today than previously Physical Therapy Plan Next Visit Focus/Plan Next Note Type Treatment Note Next Visit Plan Progress exercise with less cueing as able.
--- NOTE | 2018-04-16 13:17 | PT.OTN ---
Current Diagnoses Other abnormalities of gait and mobility (04/16/18) Unspecified abnormalities of gait and mobility (04/16/18) Physical Therapy Treatment Note PT-OP-A Visit Information Start: 12/30/17 09:37 Freq: Status: Active Protocol: Document 04/16/18 09:45 AMB (Rec: 04/16/18 13:17 AMB [email or web address]) Out-Patient Physical Therapy Visit Information Visit Information Visit Type Treatment Note Visit Note 10/20 Visit Start Time 11:15 Visit Stop Time 12:15 Total Visit Minutes 60 Visit Number 19 Evaluation Information Evaluation Date 12/29/17 PT-OP-B Current Condition Start: 12/30/17 09:37 Freq: Status: Active Protocol: Document 04/12/18 13:45 AMB (Rec: 04/12/18 15:36 AMB [email or web address]) Current Condition History of Current Condition Current Complaints Parkinson's disease History of Current Condition Recent diagnosis, pt's reports improvement with levadopa/carbidopa. Seeing neurologist for first time this week. Pt's reports freezing. He has a cane and a walker at home but doesn't really use them. They have 16 stairs to enter their home with one railing PT-OP-C Subjective Start: 12/30/17 09:37 Freq: Status: Active Protocol: Document 04/16/18 09:45 AMB (Rec: 04/16/18 13:17 AMB [email or web address]) OP-PT Subjective Patient Comments Patient Comments Pt and his say he was tired after PT today, he slept a lot. PT-OP-D Balance Start: 12/30/17 09:37 Freq: Status: Active Protocol: Document 04/12/18 13:45 AMB (Rec: 04/12/18 15:11 AMB [email or web address]) Balance Tests Romberg Romberg unable Single Limb Standing Single Limb- Right unable Single Limb- Left unable Other Other Balance Tests Performed NBOS EC: ankle sway, CGA but able to perform for 10 seconds without LOB. PT-OP-E Functional Tests Start: 04/12/18 15:11 Freq: Status: Active Protocol: Document 04/12/18 13:45 AMB (Rec: 04/12/18 15:14 AMB [email or web address]) Functional Tests 6 Minute Walk Test Distance 685 feet Device Used none Five Times Sit to Stand Test Score 19 sec PT-OP-G Mobility & Gait Start: 12/30/17 09:37 Freq: Status: Active Protocol: Document 04/12/18 13:45 AMB (Rec: 04/12/18 15:11 AMB [email or web address]) OP Mobility Evaluation Transfers Sit to Stand needs UE support OP Gait Assessment Comments Gait Comments Ambulates without AD, lack of trunk rotation, arm swing, ankle dorsiflexion during swing. PT-OP-H Neuro Start: 03/25/18 11:23 Freq: Status: Active Protocol: Document 03/24/18 15:15 RCC (Rec: 03/25/18 11:31 RCC [email or web address]) Vital Signs Blood Pressure Sitting Blood Pressure (90/60-120/80 mmHg) 120/62 Blood Pressure Source Manual Cuff Left Upper Extremity PT-OP-K Range of Motion Start: 12/30/17 09:37 Freq: Status: Active Protocol: Document 12/29/17 15:15 AMH (Rec: 12/30/17 14:17 AMH [email or web address]) Ankle and Foot Goniometric Range of Motion Ankle and Foot Measured in Degrees Right Ankle/Foot ROM WFL No Testing Position Supine Dorsiflexion with Knee Flexed 6 Dorsiflexion with Knee Extended 4 Plantarflexion 10 Left Ankle/Foot ROM WFL No Testing Position Supine Dorsiflexion with Knee Flexed 8 Dorsiflexion with Knee Extended 5 Plantarflexion 10 PT-OP-M Strength Start: 12/30/17 09:37 Freq: Status: Active Protocol: Document 12/29/17 15:15 AMH (Rec: 12/30/17 14:17 AMH [email or web address]) Ankle/Foot Strength Ankle and Foot Manual Muscle Testing Right Dorsiflexion (L4) 3 Fair Plantarflexion (S1) 3 Fair Inversion 4- Good- Eversion (S1) 4- Good- Left Dorsiflexion (L4) 3+ Fair+ Plantarflexion (S1) 3+ Fair+ Inversion 4 Good Eversion (S1) 4 Good PT-OP-Q Treatments Start: 12/30/17 09:37 Freq: Status: Active Protocol: Document 04/16/18 09:45 AMB (Rec: 04/16/18 13:17 AMB [email or web address]) Therapeutic Activity Therapeutic Activity 2 Name Sit to stand Reps/Minutes 5 Gait Training Gait Activity 1 Description walking over smooth surfaces Comments with arm swing, good posture Neuro Re-Education Treatment Balance Activities 7 Details Seated rotation Reps/Duration 10 6 Details Forward stepping with reach Reps/Duration 20 5 Details Backward stepping Reps/Duration 10 each side Comments UE support 4 Details Side stepping Reps/Duration 10 each side Comments UE support 3 Details Rock and reach Reps/Duration 2x12 Comments with UE support 2 Details WBOS trunk rotation Reps/Duration 12 Comments with UE support 1 Details Seated forward reach Reps/Duration 10 PT-OP-T Assessment and Plan Start: 12/30/17 09:37 Freq: Status: Active Protocol: Document 04/16/18 09:45 AMB (Rec: 04/16/18 13:17 AMB [email or web address]) Physical Therapy Assessment Goals Four Impairment unable to perform sit-stand without use of hands Short Term Goal (STG) The patient will be independent with a toilet transfer. STG Duration 4 weeks Brine Mixer Operator Goal (LTG) improve functional squat and balance improving ability for Heather to sit and stand without use of his hands LTG Duration 8 weeks Three Impairment poor postural habits contributing to forward trunk lean Brine Mixer Operator Goal (LTG) Heather is given a strengthening program for improved posture to decrease forward lean and decreased loss of balance in a forward direction LTG Duration 8 weeks Two Impairment Gait Short Term Goal (STG) The patient will ambulate with his for 15 minutes without forward lean, shuffling gait. STG Duration 4 weeks Brine Mixer Operator Goal (LTG) The patient will show improved 6MWT to 850 feet. LTG Duration 8 weeks One Impairment poor ankle ROM and calf tightness limiting ankle DF for gait/balance Short Term Goal (STG) Improve ankle ROM and calf flexibility to help improve ankle strategy for balance reactions STG Duration 8 weeks Assessment Summary Assessment Pt did better today, less cueing needed Physical Therapy Plan Next Visit Focus/Plan Next Note Type Treatment Note Next Visit Plan Progress exercise with less cueing as able.
--- NOTE | 2018-04-19 15:11 | PT.OTN ---
Current Diagnoses Other abnormalities of gait and mobility (04/19/18) Unspecified abnormalities of gait and mobility (04/19/18) Physical Therapy Treatment Note PT-OP-A Visit Information Start: 12/30/17 09:37 Freq: Status: Active Protocol: Document 04/19/18 13:45 AMB (Rec: 04/19/18 15:11 AMB [email or web address]) Out-Patient Physical Therapy Visit Information Visit Information Visit Type Treatment Note Visit Note 11/19 Visit Start Time 11:15 Visit Stop Time 12:15 Total Visit Minutes 60 Visit Number 20 PT-OP-B Current Condition Start: 12/30/17 09:37 Freq: Status: Active Protocol: Document 04/12/18 13:45 AMB (Rec: 04/12/18 15:36 AMB [email or web address]) Current Condition History of Current Condition Current Complaints Parkinson's disease History of Current Condition Recent diagnosis, pt's reports improvement with levadopa/carbidopa. Seeing neurologist for first time this week. Pt's reports freezing. He has a cane and a walker at home but doesn't really use them. They have 16 stairs to enter their home with one railing PT-OP-C Subjective Start: 12/30/17 09:37 Freq: Status: Active Protocol: Document 04/19/18 13:45 AMB (Rec: 04/19/18 15:11 AMB [email or web address]) OP-PT Subjective Patient Comments Patient Comments Pt's said the patient was able to walk over uneven ground at her sister's green party without incident. PT-OP-D Balance Start: 12/30/17 09:37 Freq: Status: Active Protocol: Document 04/12/18 13:45 AMB (Rec: 04/12/18 15:11 AMB [email or web address]) Balance Tests Romberg Romberg unable Single Limb Standing Single Limb- Right unable Single Limb- Left unable Other Other Balance Tests Performed NBOS EC: ankle sway, CGA but able to perform for 10 seconds without LOB. PT-OP-E Functional Tests Start: 04/12/18 15:11 Freq: Status: Active Protocol: Document 04/12/18 13:45 AMB (Rec: 04/12/18 15:14 AMB [email or web address]) Functional Tests 6 Minute Walk Test Distance 685 feet Device Used none Five Times Sit to Stand Test Score 19 sec PT-OP-G Mobility & Gait Start: 12/30/17 09:37 Freq: Status: Active Protocol: Document 04/12/18 13:45 AMB (Rec: 04/12/18 15:11 AMB [email or web address]) OP Mobility Evaluation Transfers Sit to Stand needs UE support OP Gait Assessment Comments Gait Comments Ambulates without AD, lack of trunk rotation, arm swing, ankle dorsiflexion during swing. PT-OP-H Neuro Start: 03/25/18 11:23 Freq: Status: Active Protocol: Document 03/24/18 15:15 RCC (Rec: 03/25/18 11:31 RCC [email or web address]) Vital Signs Blood Pressure Sitting Blood Pressure (90/60-120/80 mmHg) 120/62 Blood Pressure Source Manual Cuff Left Upper Extremity PT-OP-K Range of Motion Start: 12/30/17 09:37 Freq: Status: Active Protocol: Document 12/29/17 15:15 AMH (Rec: 12/30/17 14:17 AMH [email or web address]) Ankle and Foot Goniometric Range of Motion Ankle and Foot Measured in Degrees Right Ankle/Foot ROM WFL No Testing Position Supine Dorsiflexion with Knee Flexed 6 Dorsiflexion with Knee Extended 4 Plantarflexion 10 Left Ankle/Foot ROM WFL No Testing Position Supine Dorsiflexion with Knee Flexed 8 Dorsiflexion with Knee Extended 5 Plantarflexion 10 PT-OP-M Strength Start: 12/30/17 09:37 Freq: Status: Active Protocol: Document 12/29/17 15:15 AMH (Rec: 12/30/17 14:17 AMH [email or web address]) Ankle/Foot Strength Ankle and Foot Manual Muscle Testing Right Dorsiflexion (L4) 3 Fair Plantarflexion (S1) 3 Fair Inversion 4- Good- Eversion (S1) 4- Good- Left Dorsiflexion (L4) 3+ Fair+ Plantarflexion (S1) 3+ Fair+ Inversion 4 Good Eversion (S1) 4 Good PT-OP-Q Treatments Start: 12/30/17 09:37 Freq: Status: Active Protocol: Document 04/19/18 13:45 AMB (Rec: 04/19/18 15:11 AMB [email or web address]) Therapeutic Activity Therapeutic Activity 4 Name bathroom mobility Comments quarter turns half turns 3 Name bed mobility Comments supine to sit 2 Name Sit to stand Reps/Minutes 5 Neuro Re-Education Treatment Balance Activities 7 Details Seated rotation Reps/Duration 10 6 Details Forward stepping with reach Reps/Duration 20 5 Details Backward stepping Reps/Duration 10 each side Comments UE support 4 Details Side stepping Reps/Duration 10 each side Comments UE support 3 Details Rock and reach Reps/Duration 2x12 Comments with UE support 2 Details WBOS trunk rotation Reps/Duration 12 Comments with UE support 1 Details Seated forward reach Reps/Duration 10 PT-OP-T Assessment and Plan Start: 12/30/17 09:37 Freq: Status: Active Protocol: Document 04/19/18 13:45 AMB (Rec: 04/19/18 15:11 AMB [email or web address]) Physical Therapy Assessment Assessment Summary Assessment Pt required physical cues for weightshift, but with repetions did better. Physical Therapy Plan Frequency and Duration Frequency of Treatment 4x/Week Duration of Treatment 4 weeks Plan of Care Start Date 04/12/18 Plan of Care End Date 05/10/18 Next Visit Focus/Plan Next Note Type Treatment Note Next Visit Plan Progress exercise with less cueing as able.
--- NOTE | 2018-04-22 16:13 | PT.OTN ---
Current Diagnoses Other abnormalities of gait and mobility (04/22/18) Unspecified abnormalities of gait and mobility (04/22/18) Physical Therapy Treatment Note PT-OP-A Visit Information Start: 12/30/17 09:37 Freq: Status: Active Protocol: Document 04/22/18 13:45 AMB (Rec: 04/22/18 16:13 AMB [email or web address]) Out-Patient Physical Therapy Visit Information Visit Information Visit Type Treatment Note Visit Note 12/20 Visit Start Time 13:45 Visit Stop Time 14:45 Total Visit Minutes 60 Visit Number 21 Evaluation Information Evaluation Date 12/29/17 PT-OP-B Current Condition Start: 12/30/17 09:37 Freq: Status: Active Protocol: Document 04/12/18 13:45 AMB (Rec: 04/12/18 15:36 AMB [email or web address]) Current Condition History of Current Condition Current Complaints Parkinson's disease History of Current Condition Recent diagnosis, pt's reports improvement with levadopa/carbidopa. Seeing neurologist for first time this week. Pt's reports freezing. He has a cane and a walker at home but doesn't really use them. They have 16 stairs to enter their home with one railing PT-OP-C Subjective Start: 12/30/17 09:37 Freq: Status: Active Protocol: Document 04/22/18 13:45 AMB (Rec: 04/22/18 16:13 AMB [email or web address]) OP-PT Subjective Patient Comments Patient Comments Pt fell yesterday. He was on the deck, and throwing and apple to the dog, and fell backward. He did hurt his right elbow more. PT-OP-D Balance Start: 12/30/17 09:37 Freq: Status: Active Protocol: Document 04/12/18 13:45 AMB (Rec: 04/12/18 15:11 AMB [email or web address]) Balance Tests Romberg Romberg unable Single Limb Standing Single Limb- Right unable Single Limb- Left unable Other Other Balance Tests Performed NBOS EC: ankle sway, CGA but able to perform for 10 seconds without LOB. PT-OP-E Functional Tests Start: 04/12/18 15:11 Freq: Status: Active Protocol: Document 04/12/18 13:45 AMB (Rec: 04/12/18 15:14 AMB [email or web address]) Functional Tests 6 Minute Walk Test Distance 685 feet Device Used none Five Times Sit to Stand Test Score 19 sec PT-OP-G Mobility & Gait Start: 12/30/17 09:37 Freq: Status: Active Protocol: Document 04/12/18 13:45 AMB (Rec: 04/12/18 15:11 AMB [email or web address]) OP Mobility Evaluation Transfers Sit to Stand needs UE support OP Gait Assessment Comments Gait Comments Ambulates without AD, lack of trunk rotation, arm swing, ankle dorsiflexion during swing. PT-OP-H Neuro Start: 03/25/18 11:23 Freq: Status: Active Protocol: Document 03/24/18 15:15 RCC (Rec: 03/25/18 11:31 RCC [email or web address]) Vital Signs Blood Pressure Sitting Blood Pressure (90/60-120/80 mmHg) 120/62 Blood Pressure Source Manual Cuff Left Upper Extremity PT-OP-K Range of Motion Start: 12/30/17 09:37 Freq: Status: Active Protocol: Document 12/29/17 15:15 AMH (Rec: 12/30/17 14:17 AMH [email or web address]) Ankle and Foot Goniometric Range of Motion Ankle and Foot Measured in Degrees Right Ankle/Foot ROM WFL No Testing Position Supine Dorsiflexion with Knee Flexed 6 Dorsiflexion with Knee Extended 4 Plantarflexion 10 Left Ankle/Foot ROM WFL No Testing Position Supine Dorsiflexion with Knee Flexed 8 Dorsiflexion with Knee Extended 5 Plantarflexion 10 PT-OP-M Strength Start: 12/30/17 09:37 Freq: Status: Active Protocol: Document 12/29/17 15:15 AMH (Rec: 12/30/17 14:17 AMH [email or web address]) Ankle/Foot Strength Ankle and Foot Manual Muscle Testing Right Dorsiflexion (L4) 3 Fair Plantarflexion (S1) 3 Fair Inversion 4- Good- Eversion (S1) 4- Good- Left Dorsiflexion (L4) 3+ Fair+ Plantarflexion (S1) 3+ Fair+ Inversion 4 Good Eversion (S1) 4 Good PT-OP-Q Treatments Start: 12/30/17 09:37 Freq: Status: Active Protocol: Document 04/22/18 13:45 AMB (Rec: 04/22/18 16:13 AMB [email or web address]) Therapeutic Activity Therapeutic Activity 2 Name Sit to stand Reps/Minutes 10 reps Gait Training Gait Activity 1 Description walking over smooth surfaces Comments instruction in AD usage, SPC vs 4WW. Neuro Re-Education Treatment Balance Activities 7 Details Seated rotation Reps/Duration 10 6 Details Forward stepping with reach Reps/Duration 20 5 Details Backward stepping Reps/Duration 10 each side Comments UE support 4 Details Side stepping Reps/Duration 10 each side Comments UE support 3 Details Rock and reach Reps/Duration 2x12 Comments with UE support 2 Details WBOS trunk rotation Reps/Duration 12 Comments with UE support 1 Details Seated forward reach Reps/Duration 10 PT-OP-T Assessment and Plan Start: 12/30/17 09:37 Freq: Status: Active Protocol: Document 04/22/18 13:45 AMB (Rec: 04/22/18 16:13 AMB [email or web address]) Physical Therapy Assessment Assessment Summary Assessment Pt's was hesitant to have pt use walker, because she is worried he will become reliant on it. Pt unsafe with SPC, considering pt's fall history would recommend 4WW at least in community, but will need to revisit with the patient's . Physical Therapy Plan Next Visit Focus/Plan Next Note Type Treatment Note Next Visit Plan Progress gait training
--- NOTE | 2018-04-23 15:08 | PT.OTN ---
Current Diagnoses Other abnormalities of gait and mobility (04/23/18) Unspecified abnormalities of gait and mobility (04/23/18) Physical Therapy Treatment Note PT-OP-A Visit Information Start: 12/30/17 09:37 Freq: Status: Active Protocol: Document 04/23/18 14:58 AMB (Rec: 04/23/18 15:07 AMB [email or web address]) Out-Patient Physical Therapy Visit Information Visit Information Visit Type Treatment Note Visit Note 12/20 Visit Start Time 13:45 Visit Stop Time 14:45 Total Visit Minutes 60 Visit Number 22 PT-OP-B Current Condition Start: 12/30/17 09:37 Freq: Status: Active Protocol: Document 04/12/18 13:45 AMB (Rec: 04/12/18 15:36 AMB [email or web address]) Current Condition History of Current Condition Current Complaints Parkinson's disease History of Current Condition Recent diagnosis, pt's reports improvement with levadopa/carbidopa. Seeing neurologist for first time this week. Pt's reports freezing. He has a cane and a walker at home but doesn't really use them. They have 16 stairs to enter their home with one railing PT-OP-C Subjective Start: 12/30/17 09:37 Freq: Status: Active Protocol: Document 04/23/18 14:58 AMB (Rec: 04/23/18 15:07 AMB [email or web address]) OP-PT Subjective Patient Comments Patient Comments Pt's reports they went on a walk yesterday, using no AD , SPC and 4WW. He didn't really use the SPC at all, but otherwise it was fine. PT-OP-D Balance Start: 12/30/17 09:37 Freq: Status: Active Protocol: Document 04/12/18 13:45 AMB (Rec: 04/12/18 15:11 AMB [email or web address]) Balance Tests Romberg Romberg unable Single Limb Standing Single Limb- Right unable Single Limb- Left unable Other Other Balance Tests Performed NBOS EC: ankle sway, CGA but able to perform for 10 seconds without LOB. PT-OP-E Functional Tests Start: 04/12/18 15:11 Freq: Status: Active Protocol: Document 04/12/18 13:45 AMB (Rec: 04/12/18 15:14 AMB [email or web address]) Functional Tests 6 Minute Walk Test Distance 685 feet Device Used none Five Times Sit to Stand Test Score 19 sec PT-OP-G Mobility & Gait Start: 12/30/17 09:37 Freq: Status: Active Protocol: Document 04/12/18 13:45 AMB (Rec: 04/12/18 15:11 AMB [email or web address]) OP Mobility Evaluation Transfers Sit to Stand needs UE support OP Gait Assessment Comments Gait Comments Ambulates without AD, lack of trunk rotation, arm swing, ankle dorsiflexion during swing. PT-OP-H Neuro Start: 03/25/18 11:23 Freq: Status: Active Protocol: Document 03/24/18 15:15 RCC (Rec: 03/25/18 11:31 RCC [email or web address]) Vital Signs Blood Pressure Sitting Blood Pressure (90/60-120/80 mmHg) 120/62 Blood Pressure Source Manual Cuff Left Upper Extremity PT-OP-K Range of Motion Start: 12/30/17 09:37 Freq: Status: Active Protocol: Document 12/29/17 15:15 AMH (Rec: 12/30/17 14:17 AMH [email or web address]) Ankle and Foot Goniometric Range of Motion Ankle and Foot Measured in Degrees Right Ankle/Foot ROM WFL No Testing Position Supine Dorsiflexion with Knee Flexed 6 Dorsiflexion with Knee Extended 4 Plantarflexion 10 Left Ankle/Foot ROM WFL No Testing Position Supine Dorsiflexion with Knee Flexed 8 Dorsiflexion with Knee Extended 5 Plantarflexion 10 PT-OP-M Strength Start: 12/30/17 09:37 Freq: Status: Active Protocol: Document 12/29/17 15:15 AMH (Rec: 12/30/17 14:17 AMH [email or web address]) Ankle/Foot Strength Ankle and Foot Manual Muscle Testing Right Dorsiflexion (L4) 3 Fair Plantarflexion (S1) 3 Fair Inversion 4- Good- Eversion (S1) 4- Good- Left Dorsiflexion (L4) 3+ Fair+ Plantarflexion (S1) 3+ Fair+ Inversion 4 Good Eversion (S1) 4 Good PT-OP-Q Treatments Start: 12/30/17 09:37 Freq: Status: Active Protocol: Document 04/23/18 14:58 AMB (Rec: 04/23/18 15:07 AMB [email or web address]) Gait Training Gait Activity 1 Description walking over smooth surfaces Device Used 4WW vs none Distance/Duration 10 min with 3 rest breaks Comments instruction in AD usage, SPC vs 4WW. Neuro Re-Education Treatment Balance Activities 7 Details Seated rotation Reps/Duration 10 6 Details Forward stepping with reach Reps/Duration 20 5 Details Backward stepping Reps/Duration 10 each side Comments UE support 4 Details Side stepping Reps/Duration 10 each side Comments UE support 3 Details Rock and reach Reps/Duration 2x12 Comments with UE support 2 Details WBOS trunk rotation Reps/Duration 12 Comments with UE support 1 Details Seated forward reach Reps/Duration 10 PT-OP-T Assessment and Plan Start: 12/30/17 09:37 Freq: Status: Active Protocol: Document 04/23/18 14:58 AMB (Rec: 04/23/18 15:07 AMB [email or web address]) Physical Therapy Assessment Goals Four Impairment unable to perform sit-stand without use of hands Short Term Goal (STG) The patient will be independent with a toilet transfer. STG Duration 4 weeks Usp Goal (LTG) improve functional squat and balance improving ability for Heather to sit and stand without use of his hands LTG Duration 8 weeks Three Impairment poor postural habits contributing to forward trunk lean Usp Goal (LTG) Heather is given a strengthening program for improved posture to decrease forward lean and decreased loss of balance in a forward direction LTG Duration 8 weeks Two Impairment Gait Short Term Goal (STG) The patient will ambulate with his for 15 minutes without forward lean, shuffling gait. STG Duration 4 weeks Usp Goal (LTG) The patient will show improved 6MWT to 850 feet. LTG Duration 8 weeks One Impairment poor ankle ROM and calf tightness limiting ankle DF for gait/balance Short Term Goal (STG) Improve ankle ROM and calf flexibility to help improve ankle strategy for balance reactions STG Duration 8 weeks Assessment Summary Assessment Pt is able to better walk BIG when using 4WW. His admits they have not been able to do the exercises very much because she wants them to be perfect. Physical Therapy Plan Frequency and Duration Frequency of Treatment 4x/Week Duration of Treatment 4 weeks Plan of Care Start Date 04/12/18 Plan of Care End Date 05/10/18 Next Visit Focus/Plan Next Note Type Treatment Note Next Visit Plan Progress gait training
--- NOTE | 2018-04-26 16:09 | PT.OTN ---
Current Diagnoses Other abnormalities of gait and mobility (04/26/18) Unspecified abnormalities of gait and mobility (04/26/18) Physical Therapy Treatment Note PT-OP-A Visit Information Start: 12/30/17 09:37 Freq: Status: Active Protocol: Document 04/26/18 13:45 AMB (Rec: 04/26/18 16:07 AMB [email or web address]) Out-Patient Physical Therapy Visit Information Visit Information Visit Type Treatment Note Visit Note 01/19 Visit Start Time 13:45 Visit Stop Time 14:45 Total Visit Minutes 60 Visit Number 23 Evaluation Information Evaluation Date 12/29/17 PT-OP-B Current Condition Start: 12/30/17 09:37 Freq: Status: Active Protocol: Document 04/12/18 13:45 AMB (Rec: 04/12/18 15:36 AMB [email or web address]) Current Condition History of Current Condition Current Complaints Parkinson's disease History of Current Condition Recent diagnosis, pt's reports improvement with levadopa/carbidopa. Seeing neurologist for first time this week. Pt's reports freezing. He has a cane and a walker at home but doesn't really use them. They have 16 stairs to enter their home with one railing PT-OP-C Subjective Start: 12/30/17 09:37 Freq: Status: Active Protocol: Document 04/26/18 13:45 AMB (Rec: 04/26/18 16:09 AMB [email or web address]) OP-PT Subjective Patient Comments Patient Comments Pt is doing well , his states he had a tired day yesterday. They have been doing the exercises, but not as often as they should be. PT-OP-D Balance Start: 12/30/17 09:37 Freq: Status: Active Protocol: Document 04/12/18 13:45 AMB (Rec: 04/12/18 15:11 AMB [email or web address]) Balance Tests Romberg Romberg unable Single Limb Standing Single Limb- Right unable Single Limb- Left unable Other Other Balance Tests Performed NBOS EC: ankle sway, CGA but able to perform for 10 seconds without LOB. PT-OP-E Functional Tests Start: 04/12/18 15:11 Freq: Status: Active Protocol: Document 04/12/18 13:45 AMB (Rec: 04/12/18 15:14 AMB [email or web address]) Functional Tests 6 Minute Walk Test Distance 685 feet Device Used none Five Times Sit to Stand Test Score 19 sec PT-OP-G Mobility & Gait Start: 12/30/17 09:37 Freq: Status: Active Protocol: Document 04/12/18 13:45 AMB (Rec: 04/12/18 15:11 AMB [email or web address]) OP Mobility Evaluation Transfers Sit to Stand needs UE support OP Gait Assessment Comments Gait Comments Ambulates without AD, lack of trunk rotation, arm swing, ankle dorsiflexion during swing. PT-OP-H Neuro Start: 03/25/18 11:23 Freq: Status: Active Protocol: Document 03/24/18 15:15 RCC (Rec: 03/25/18 11:31 RCC [email or web address]) Vital Signs Blood Pressure Sitting Blood Pressure (90/60-120/80 mmHg) 120/62 Blood Pressure Source Manual Cuff Left Upper Extremity PT-OP-K Range of Motion Start: 12/30/17 09:37 Freq: Status: Active Protocol: Document 12/29/17 15:15 AMH (Rec: 12/30/17 14:17 AMH [email or web address]) Ankle and Foot Goniometric Range of Motion Ankle and Foot Measured in Degrees Right Ankle/Foot ROM WFL No Testing Position Supine Dorsiflexion with Knee Flexed 6 Dorsiflexion with Knee Extended 4 Plantarflexion 10 Left Ankle/Foot ROM WFL No Testing Position Supine Dorsiflexion with Knee Flexed 8 Dorsiflexion with Knee Extended 5 Plantarflexion 10 PT-OP-M Strength Start: 12/30/17 09:37 Freq: Status: Active Protocol: Document 12/29/17 15:15 AMH (Rec: 12/30/17 14:17 AMH [email or web address]) Ankle/Foot Strength Ankle and Foot Manual Muscle Testing Right Dorsiflexion (L4) 3 Fair Plantarflexion (S1) 3 Fair Inversion 4- Good- Eversion (S1) 4- Good- Left Dorsiflexion (L4) 3+ Fair+ Plantarflexion (S1) 3+ Fair+ Inversion 4 Good Eversion (S1) 4 Good PT-OP-Q Treatments Start: 12/30/17 09:37 Freq: Status: Active Protocol: Document 04/26/18 13:45 AMB (Rec: 04/26/18 16:07 AMB [email or web address]) Therapeutic Activity Therapeutic Activity 2 Name Sit to stand Reps/Minutes 10 reps Comments caregiver training to avoid caregiver/pt injury Gait Training Gait Activity 1 Description walking over smooth surfaces Device Used 4WW Distance/Duration 10 min with 3 rest breaks Comments instruction in AD usage 4WW. Neuro Re-Education Treatment Balance Activities 7 Details Seated rotation Reps/Duration 10 6 Details Forward stepping with reach Reps/Duration 20 5 Details Backward stepping Reps/Duration 10 each side Comments UE support 4 Details Side stepping Reps/Duration 10 each side Comments UE support 3 Details Rock and reach Reps/Duration 2x12 Comments with UE support 2 Details WBOS trunk rotation Reps/Duration 12 Comments with UE support 1 Details Seated forward reach Reps/Duration 10 PT-OP-T Assessment and Plan Start: 12/30/17 09:37 Freq: Status: Active Protocol: Document 04/26/18 13:45 AMB (Rec: 04/26/18 16:07 AMB [email or web address]) Physical Therapy Assessment Assessment Summary Assessment Pt ambulated 989 feet during 6MWT with 4WW. Difficulty with pathfinding, but better with 4WW than without AD. Physical Therapy Plan Next Visit Focus/Plan Next Note Type Treatment Note Next Visit Plan Progress gait training
--- NOTE | 2018-04-28 16:19 | PT.OTN ---
Current Diagnoses Other abnormalities of gait and mobility (04/28/18) Unspecified abnormalities of gait and mobility (04/28/18) Physical Therapy Treatment Note PT-OP-A Visit Information Start: 12/30/17 09:37 Freq: Status: Active Protocol: Document 04/28/18 13:45 AMB (Rec: 04/28/18 16:17 AMB [email or web address]) Out-Patient Physical Therapy Visit Information Visit Information Visit Type Treatment Note Visit Note 02/19 Visit Start Time 13:45 Visit Stop Time 14:45 Total Visit Minutes 60 Visit Number 24 Evaluation Information Evaluation Date 12/29/17 PT-OP-B Current Condition Start: 12/30/17 09:37 Freq: Status: Active Protocol: Document 04/12/18 13:45 AMB (Rec: 04/12/18 15:36 AMB [email or web address]) Current Condition History of Current Condition Current Complaints Parkinson's disease History of Current Condition Recent diagnosis, pt's reports improvement with levadopa/carbidopa. Seeing neurologist for first time this week. Pt's reports freezing. He has a cane and a walker at home but doesn't really use them. They have 16 stairs to enter their home with one railing PT-OP-C Subjective Start: 12/30/17 09:37 Freq: Status: Active Protocol: Document 04/28/18 13:45 AMB (Rec: 04/28/18 16:17 AMB [email or web address]) OP-PT Subjective Patient Comments Patient Comments Pt's reports they walked a mile yesterday and the patient only required one rest break. PT-OP-D Balance Start: 12/30/17 09:37 Freq: Status: Active Protocol: Document 04/12/18 13:45 AMB (Rec: 04/12/18 15:11 AMB [email or web address]) Balance Tests Romberg Romberg unable Single Limb Standing Single Limb- Right unable Single Limb- Left unable Other Other Balance Tests Performed NBOS EC: ankle sway, CGA but able to perform for 10 seconds without LOB. PT-OP-E Functional Tests Start: 04/12/18 15:11 Freq: Status: Active Protocol: Document 04/12/18 13:45 AMB (Rec: 04/12/18 15:14 AMB [email or web address]) Functional Tests 6 Minute Walk Test Distance 685 feet Device Used none Five Times Sit to Stand Test Score 19 sec PT-OP-G Mobility & Gait Start: 12/30/17 09:37 Freq: Status: Active Protocol: Document 04/12/18 13:45 AMB (Rec: 04/12/18 15:11 AMB [email or web address]) OP Mobility Evaluation Transfers Sit to Stand needs UE support OP Gait Assessment Comments Gait Comments Ambulates without AD, lack of trunk rotation, arm swing, ankle dorsiflexion during swing. PT-OP-H Neuro Start: 03/25/18 11:23 Freq: Status: Active Protocol: Document 03/24/18 15:15 RCC (Rec: 03/25/18 11:31 RCC [email or web address]) Vital Signs Blood Pressure Sitting Blood Pressure (90/60-120/80 mmHg) 120/62 Blood Pressure Source Manual Cuff Left Upper Extremity PT-OP-K Range of Motion Start: 12/30/17 09:37 Freq: Status: Active Protocol: Document 12/29/17 15:15 AMH (Rec: 12/30/17 14:17 AMH [email or web address]) Ankle and Foot Goniometric Range of Motion Ankle and Foot Measured in Degrees Right Ankle/Foot ROM WFL No Testing Position Supine Dorsiflexion with Knee Flexed 6 Dorsiflexion with Knee Extended 4 Plantarflexion 10 Left Ankle/Foot ROM WFL No Testing Position Supine Dorsiflexion with Knee Flexed 8 Dorsiflexion with Knee Extended 5 Plantarflexion 10 PT-OP-M Strength Start: 12/30/17 09:37 Freq: Status: Active Protocol: Document 12/29/17 15:15 AMH (Rec: 12/30/17 14:17 AMH [email or web address]) Ankle/Foot Strength Ankle and Foot Manual Muscle Testing Right Dorsiflexion (L4) 3 Fair Plantarflexion (S1) 3 Fair Inversion 4- Good- Eversion (S1) 4- Good- Left Dorsiflexion (L4) 3+ Fair+ Plantarflexion (S1) 3+ Fair+ Inversion 4 Good Eversion (S1) 4 Good PT-OP-Q Treatments Start: 12/30/17 09:37 Freq: Status: Active Protocol: Document 04/28/18 13:45 AMB (Rec: 04/28/18 16:17 AMB [email or web address]) Gait Training Gait Activity 1 Description walking over smooth surfaces Comments no AD 983feet for 6MWT Neuro Re-Education Treatment Balance Activities 7 Details Seated rotation Reps/Duration 10 6 Details Forward stepping with reach Reps/Duration 20 5 Details Backward stepping Reps/Duration 10 each side Comments UE support 4 Details Side stepping Reps/Duration 10 each side Comments UE support 3 Details Rock and reach Reps/Duration 2x12 Comments with UE support 2 Details WBOS trunk rotation Reps/Duration 12 Comments with UE support 1 Details Seated forward reach Reps/Duration 10 PT-OP-T Assessment and Plan Start: 12/30/17 09:37 Freq: Status: Active Protocol: Document 04/28/18 14:32 AMB (Rec: 04/28/18 14:33 AMB [email or web address]) Physical Therapy Assessment Assessment Summary Assessment 983 feet without AD during 6MWT today. Continues to need physical cues for correct form. Physical Therapy Plan Next Visit Focus/Plan Next Note Type Treatment Note Next Visit Plan Progress exercise with less cueing as able.
--- NOTE | 2018-04-29 16:44 | PT.OTN ---
Current Diagnoses Other abnormalities of gait and mobility (04/29/18) Unspecified abnormalities of gait and mobility (04/29/18) Physical Therapy Treatment Note PT-OP-A Visit Information Start: 12/30/17 09:37 Freq: Status: Active Protocol: Document 04/29/18 14:00 AMB (Rec: 04/29/18 16:44 AMB [email or web address]) Out-Patient Physical Therapy Visit Information Visit Information Visit Type Treatment Note Visit Note 03/22 Visit Start Time 14:00 Visit Stop Time 15:00 Total Visit Minutes 60 Visit Number 25 PT-OP-B Current Condition Start: 12/30/17 09:37 Freq: Status: Active Protocol: Document 04/12/18 13:45 AMB (Rec: 04/12/18 15:36 AMB [email or web address]) Current Condition History of Current Condition Current Complaints Parkinson's disease History of Current Condition Recent diagnosis, pt's reports improvement with levadopa/carbidopa. Seeing neurologist for first time this week. Pt's reports freezing. He has a cane and a walker at home but doesn't really use them. They have 16 stairs to enter their home with one railing PT-OP-C Subjective Start: 12/30/17 09:37 Freq: Status: Active Protocol: Document 04/29/18 14:00 AMB (Rec: 04/29/18 16:44 AMB [email or web address]) OP-PT Subjective Patient Comments Patient Comments Pt's states pt's sit to stands have been getting better, he does have difficulty getting off the massage table 1x/week when he gets a massage. PT-OP-D Balance Start: 12/30/17 09:37 Freq: Status: Active Protocol: Document 04/12/18 13:45 AMB (Rec: 04/12/18 15:11 AMB [email or web address]) Balance Tests Romberg Romberg unable Single Limb Standing Single Limb- Right unable Single Limb- Left unable Other Other Balance Tests Performed NBOS EC: ankle sway, CGA but able to perform for 10 seconds without LOB. PT-OP-E Functional Tests Start: 04/12/18 15:11 Freq: Status: Active Protocol: Document 04/12/18 13:45 AMB (Rec: 04/12/18 15:14 AMB [email or web address]) Functional Tests 6 Minute Walk Test Distance 685 feet Device Used none Five Times Sit to Stand Test Score 19 sec PT-OP-G Mobility & Gait Start: 12/30/17 09:37 Freq: Status: Active Protocol: Document 04/12/18 13:45 AMB (Rec: 04/12/18 15:11 AMB [email or web address]) OP Mobility Evaluation Transfers Sit to Stand needs UE support OP Gait Assessment Comments Gait Comments Ambulates without AD, lack of trunk rotation, arm swing, ankle dorsiflexion during swing. PT-OP-H Neuro Start: 03/25/18 11:23 Freq: Status: Active Protocol: Document 03/24/18 15:15 RCC (Rec: 03/25/18 11:31 RCC [email or web address]) Vital Signs Blood Pressure Sitting Blood Pressure (90/60-120/80 mmHg) 120/62 Blood Pressure Source Manual Cuff Left Upper Extremity PT-OP-K Range of Motion Start: 12/30/17 09:37 Freq: Status: Active Protocol: Document 12/29/17 15:15 AMH (Rec: 12/30/17 14:17 AMH [email or web address]) Ankle and Foot Goniometric Range of Motion Ankle and Foot Measured in Degrees Right Ankle/Foot ROM WFL No Testing Position Supine Dorsiflexion with Knee Flexed 6 Dorsiflexion with Knee Extended 4 Plantarflexion 10 Left Ankle/Foot ROM WFL No Testing Position Supine Dorsiflexion with Knee Flexed 8 Dorsiflexion with Knee Extended 5 Plantarflexion 10 PT-OP-M Strength Start: 12/30/17 09:37 Freq: Status: Active Protocol: Document 12/29/17 15:15 AMH (Rec: 12/30/17 14:17 AMH [email or web address]) Ankle/Foot Strength Ankle and Foot Manual Muscle Testing Right Dorsiflexion (L4) 3 Fair Plantarflexion (S1) 3 Fair Inversion 4- Good- Eversion (S1) 4- Good- Left Dorsiflexion (L4) 3+ Fair+ Plantarflexion (S1) 3+ Fair+ Inversion 4 Good Eversion (S1) 4 Good PT-OP-Q Treatments Start: 12/30/17 09:37 Freq: Status: Active Protocol: Document 04/29/18 14:00 AMB (Rec: 04/29/18 16:44 AMB [email or web address]) Therapeutic Exercises Standing Exercises 6 Standing Exercise Name JCARLOS calf stretch Reps/Minutes 30x2 Other Exercises 1 Other Exercise Name quadruped tolerance Neuro Re-Education Treatment Balance Activities 7 Details Seated rotation Reps/Duration 10 6 Details Forward stepping with reach Reps/Duration 20 5 Details Backward stepping Reps/Duration 10 each side 4 Details Side stepping Reps/Duration 10 each side 3 Details Rock and reach Reps/Duration 2x12 2 Details WBOS trunk rotation Reps/Duration 12 1 Details Seated forward reach Reps/Duration 10 PT-OP-T Assessment and Plan Start: 12/30/17 09:37 Freq: Status: Active Protocol: Document 04/29/18 14:00 AMB (Rec: 04/29/18 16:44 AMB [email or web address]) Physical Therapy Assessment Assessment Summary Assessment has been having pt practice without UE support at home. Today tried that here and pt needed close CGA and was less able to have good amplitude, but we were able to practice UE contralateral movement. Physical Therapy Plan Next Visit Focus/Plan Next Note Type Treatment Note Next Visit Plan Progress exercise with less cueing as able.
--- NOTE | 2018-04-30 16:28 | PT.OTN ---
Current Diagnoses Other abnormalities of gait and mobility (04/30/18) Unspecified abnormalities of gait and mobility (04/30/18) Physical Therapy Treatment Note PT-OP-A Visit Information Start: 12/30/17 09:37 Freq: Status: Active Protocol: Document 04/30/18 13:45 AMB (Rec: 04/30/18 16:28 AMB [email or web address]) Out-Patient Physical Therapy Visit Information Visit Information Visit Type Treatment Note Visit Note 07/22 Visit Start Time 13:45 Visit Stop Time 14:30 Total Visit Minutes 60 Visit Number 26 Evaluation Information Evaluation Date 12/29/17 PT-OP-B Current Condition Start: 12/30/17 09:37 Freq: Status: Active Protocol: Document 04/12/18 13:45 AMB (Rec: 04/12/18 15:36 AMB [email or web address]) Current Condition History of Current Condition Current Complaints Parkinson's disease History of Current Condition Recent diagnosis, pt's reports improvement with levadopa/carbidopa. Seeing neurologist for first time this week. Pt's reports freezing. He has a cane and a walker at home but doesn't really use them. They have 16 stairs to enter their home with one railing PT-OP-C Subjective Start: 12/30/17 09:37 Freq: Status: Active Protocol: Document 04/30/18 13:45 AMB (Rec: 04/30/18 16:28 AMB [email or web address]) OP-PT Subjective Patient Comments Patient Comments Pt reports pt's blood pressure was high this morning 170 so then pt's gave him blood pressure medication and he took a nap. BP now at 160/70. PT-OP-D Balance Start: 12/30/17 09:37 Freq: Status: Active Protocol: Document 04/12/18 13:45 AMB (Rec: 04/12/18 15:11 AMB [email or web address]) Balance Tests Romberg Romberg unable Single Limb Standing Single Limb- Right unable Single Limb- Left unable Other Other Balance Tests Performed NBOS EC: ankle sway, CGA but able to perform for 10 seconds without LOB. PT-OP-E Functional Tests Start: 04/12/18 15:11 Freq: Status: Active Protocol: Document 04/12/18 13:45 AMB (Rec: 04/12/18 15:14 AMB [email or web address]) Functional Tests 6 Minute Walk Test Distance 685 feet Device Used none Five Times Sit to Stand Test Score 19 sec PT-OP-G Mobility & Gait Start: 12/30/17 09:37 Freq: Status: Active Protocol: Document 04/12/18 13:45 AMB (Rec: 04/12/18 15:11 AMB [email or web address]) OP Mobility Evaluation Transfers Sit to Stand needs UE support OP Gait Assessment Comments Gait Comments Ambulates without AD, lack of trunk rotation, arm swing, ankle dorsiflexion during swing. PT-OP-H Neuro Start: 03/25/18 11:23 Freq: Status: Active Protocol: Document 03/24/18 15:15 RCC (Rec: 03/25/18 11:31 RCC [email or web address]) Vital Signs Blood Pressure Sitting Blood Pressure (90/60-120/80 mmHg) 120/62 Blood Pressure Source Manual Cuff Left Upper Extremity PT-OP-K Range of Motion Start: 12/30/17 09:37 Freq: Status: Active Protocol: Document 12/29/17 15:15 AMH (Rec: 12/30/17 14:17 AMH [email or web address]) Ankle and Foot Goniometric Range of Motion Ankle and Foot Measured in Degrees Right Ankle/Foot ROM WFL No Testing Position Supine Dorsiflexion with Knee Flexed 6 Dorsiflexion with Knee Extended 4 Plantarflexion 10 Left Ankle/Foot ROM WFL No Testing Position Supine Dorsiflexion with Knee Flexed 8 Dorsiflexion with Knee Extended 5 Plantarflexion 10 PT-OP-M Strength Start: 12/30/17 09:37 Freq: Status: Active Protocol: Document 12/29/17 15:15 AMH (Rec: 12/30/17 14:17 AMH [email or web address]) Ankle/Foot Strength Ankle and Foot Manual Muscle Testing Right Dorsiflexion (L4) 3 Fair Plantarflexion (S1) 3 Fair Inversion 4- Good- Eversion (S1) 4- Good- Left Dorsiflexion (L4) 3+ Fair+ Plantarflexion (S1) 3+ Fair+ Inversion 4 Good Eversion (S1) 4 Good PT-OP-Q Treatments Start: 12/30/17 09:37 Freq: Status: Active Protocol: Document 04/30/18 13:45 AMB (Rec: 04/30/18 16:28 AMB [email or web address]) Therapeutic Exercises Standing Exercises 6 Standing Exercise Name JCARLOS calf stretch Reps/Minutes 30x2 5 Standing Exercise Name shoulder stretch- wall Reps/Minutes 30x2 Therapeutic Activity Therapeutic Activity 2 Name Sit to stand Reps/Minutes 10 reps Comments caregiver training to avoid caregiver/pt injury Gait Training Gait Activity 1 Description walking over smooth surfaces Comments no Neuro Re-Education Treatment Balance Activities 7 Details Seated rotation Reps/Duration 10 6 Details Forward stepping with reach Reps/Duration 20 5 Details Backward stepping Reps/Duration 10 each side 4 Details Side stepping Reps/Duration 10 each side 3 Details Rock and reach Reps/Duration 2x12 2 Details WBOS trunk rotation Reps/Duration 12 1 Details Seated forward reach Reps/Duration 10 PT-OP-T Assessment and Plan Start: 12/30/17 09:37 Freq: Status: Active Protocol: Document 04/30/18 13:45 AMB (Rec: 04/30/18 16:28 AMB [email or web address]) Physical Therapy Assessment Assessment Summary Assessment Pt with more difficulty with directions at today's visit. Needed UE support. Physical Therapy Plan Next Visit Focus/Plan Next Note Type Treatment Note Next Visit Plan Progress exercise with less cueing as able.
--- NOTE | 2018-05-03 15:56 | PT.OTN ---
Current Diagnoses Other abnormalities of gait and mobility (05/03/18) Unspecified abnormalities of gait and mobility (05/03/18) Physical Therapy Treatment Note PT-OP-A Visit Information Start: 12/30/17 09:37 Freq: Status: Active Protocol: Document 05/03/18 13:45 AMB (Rec: 05/03/18 13:46 AMB [email or web address]) Out-Patient Physical Therapy Visit Information Visit Information Visit Type Treatment Note Visit Note 08/22 Visit Start Time 13:45 Visit Stop Time 14:30 Total Visit Minutes 60 Visit Number 27 PT-OP-B Current Condition Start: 12/30/17 09:37 Freq: Status: Active Protocol: Document 04/12/18 13:45 AMB (Rec: 04/12/18 15:36 AMB [email or web address]) Current Condition History of Current Condition Current Complaints Parkinson's disease History of Current Condition Recent diagnosis, pt's reports improvement with levadopa/carbidopa. Seeing neurologist for first time this week. Pt's reports freezing. He has a cane and a walker at home but doesn't really use them. They have 16 stairs to enter their home with one railing PT-OP-C Subjective Start: 12/30/17 09:37 Freq: Status: Active Protocol: Document 05/03/18 13:45 AMB (Rec: 05/03/18 14:45 AMB [id number]) OP-PT Subjective Patient Comments Patient Comments Pt's states they have been doing 30 minute walks and the exercises 1x/day. PT-OP-D Balance Start: 12/30/17 09:37 Freq: Status: Active Protocol: Document 04/12/18 13:45 AMB (Rec: 04/12/18 15:11 AMB [email or web address]) Balance Tests Romberg Romberg unable Single Limb Standing Single Limb- Right unable Single Limb- Left unable Other Other Balance Tests Performed NBOS EC: ankle sway, CGA but able to perform for 10 seconds without LOB. PT-OP-E Functional Tests Start: 04/12/18 15:11 Freq: Status: Active Protocol: Document 04/12/18 13:45 AMB (Rec: 04/12/18 15:14 AMB [email or web address]) Functional Tests 6 Minute Walk Test Distance 685 feet Device Used none Five Times Sit to Stand Test Score 19 sec PT-OP-G Mobility & Gait Start: 12/30/17 09:37 Freq: Status: Active Protocol: Document 04/12/18 13:45 AMB (Rec: 04/12/18 15:11 AMB [email or web address]) OP Mobility Evaluation Transfers Sit to Stand needs UE support OP Gait Assessment Comments Gait Comments Ambulates without AD, lack of trunk rotation, arm swing, ankle dorsiflexion during swing. PT-OP-H Neuro Start: 03/25/18 11:23 Freq: Status: Active Protocol: Document 03/24/18 15:15 RCC (Rec: 03/25/18 11:31 RCC [email or web address]) Vital Signs Blood Pressure Sitting Blood Pressure (90/60-120/80 mmHg) 120/62 Blood Pressure Source Manual Cuff Left Upper Extremity PT-OP-K Range of Motion Start: 12/30/17 09:37 Freq: Status: Active Protocol: Document 12/29/17 15:15 AMH (Rec: 12/30/17 14:17 AMH [email or web address]) Ankle and Foot Goniometric Range of Motion Ankle and Foot Measured in Degrees Right Ankle/Foot ROM WFL No Testing Position Supine Dorsiflexion with Knee Flexed 6 Dorsiflexion with Knee Extended 4 Plantarflexion 10 Left Ankle/Foot ROM WFL No Testing Position Supine Dorsiflexion with Knee Flexed 8 Dorsiflexion with Knee Extended 5 Plantarflexion 10 PT-OP-M Strength Start: 12/30/17 09:37 Freq: Status: Active Protocol: Document 12/29/17 15:15 AMH (Rec: 12/30/17 14:17 AMH [email or web address]) Ankle/Foot Strength Ankle and Foot Manual Muscle Testing Right Dorsiflexion (L4) 3 Fair Plantarflexion (S1) 3 Fair Inversion 4- Good- Eversion (S1) 4- Good- Left Dorsiflexion (L4) 3+ Fair+ Plantarflexion (S1) 3+ Fair+ Inversion 4 Good Eversion (S1) 4 Good PT-OP-Q Treatments Start: 12/30/17 09:37 Freq: Status: Active Protocol: Document 05/03/18 13:45 AMB (Rec: 05/03/18 13:46 AMB [id number]) Therapeutic Activity Therapeutic Activity 3 Name handwriting Comments forearm supported, large pen, large lines 2 Name Sit to stand Reps/Minutes 10 reps Comments caregiver training to avoid caregiver/pt injury Neuro Re-Education Treatment Balance Activities 7 Details Seated rotation Reps/Duration 10 6 Details Forward stepping with reach Reps/Duration 20 5 Details Backward stepping Reps/Duration 10 each side 4 Details Side stepping Reps/Duration 10 each side 3 Details Rock and reach Reps/Duration 2x12 2 Details WBOS trunk rotation Reps/Duration 12 1 Details Seated forward reach Reps/Duration 10 PT-OP-T Assessment and Plan Start: 12/30/17 09:37 Freq: Status: Active Protocol: Document 05/03/18 15:54 AMB (Rec: 05/03/18 15:56 AMB [email or web address]) Physical Therapy Assessment Assessment Summary Assessment Pt tolerating exercises without UE support somewhat, but needs close guarding. did better with handwriting than expected Physical Therapy Plan Next Visit Focus/Plan Next Note Type Treatment Note Next Visit Plan Progress exercise with less cueing as able.
--- NOTE | 2018-05-05 15:21 | PT.OTN ---
Current Diagnoses Other abnormalities of gait and mobility (05/05/18) Unspecified abnormalities of gait and mobility (05/05/18) Physical Therapy Treatment Note PT-OP-A Visit Information Start: 12/30/17 09:37 Freq: Status: Active Protocol: Document 05/05/18 13:45 AMB (Rec: 05/05/18 13:46 AMB [id number]) Out-Patient Physical Therapy Visit Information Visit Information Visit Type Treatment Note Visit Note 09/19 Visit Start Time 13:45 Visit Stop Time 14:30 Total Visit Minutes 60 Visit Number 28 PT-OP-B Current Condition Start: 12/30/17 09:37 Freq: Status: Active Protocol: Document 04/12/18 13:45 AMB (Rec: 04/12/18 15:36 AMB [email or web address]) Current Condition History of Current Condition Current Complaints Parkinson's disease History of Current Condition Recent diagnosis, pt's reports improvement with levadopa/carbidopa. Seeing neurologist for first time this week. Pt's reports freezing. He has a cane and a walker at home but doesn't really use them. They have 16 stairs to enter their home with one railing PT-OP-C Subjective Start: 12/30/17 09:37 Freq: Status: Active Protocol: Document 05/05/18 13:45 AMB (Rec: 05/05/18 15:21 AMB [email or web address]) OP-PT Subjective Patient Comments Patient Comments Pt's reports they are going to be flying home for [place] from [place]. PT-OP-D Balance Start: 12/30/17 09:37 Freq: Status: Active Protocol: Document 04/12/18 13:45 AMB (Rec: 04/12/18 15:11 AMB [email or web address]) Balance Tests Romberg Romberg unable Single Limb Standing Single Limb- Right unable Single Limb- Left unable Other Other Balance Tests Performed NBOS EC: ankle sway, CGA but able to perform for 10 seconds without LOB. PT-OP-E Functional Tests Start: 04/12/18 15:11 Freq: Status: Active Protocol: Document 04/12/18 13:45 AMB (Rec: 04/12/18 15:14 AMB [email or web address]) Functional Tests 6 Minute Walk Test Distance 685 feet Device Used none Five Times Sit to Stand Test Score 19 sec PT-OP-G Mobility & Gait Start: 12/30/17 09:37 Freq: Status: Active Protocol: Document 04/12/18 13:45 AMB (Rec: 04/12/18 15:11 AMB [email or web address]) OP Mobility Evaluation Transfers Sit to Stand needs UE support OP Gait Assessment Comments Gait Comments Ambulates without AD, lack of trunk rotation, arm swing, ankle dorsiflexion during swing. PT-OP-H Neuro Start: 03/25/18 11:23 Freq: Status: Active Protocol: Document 03/24/18 15:15 RCC (Rec: 03/25/18 11:31 RCC [email or web address]) Vital Signs Blood Pressure Sitting Blood Pressure (90/60-120/80 mmHg) 120/62 Blood Pressure Source Manual Cuff Left Upper Extremity PT-OP-K Range of Motion Start: 12/30/17 09:37 Freq: Status: Active Protocol: Document 12/29/17 15:15 AMH (Rec: 12/30/17 14:17 AMH [email or web address]) Ankle and Foot Goniometric Range of Motion Ankle and Foot Measured in Degrees Right Ankle/Foot ROM WFL No Testing Position Supine Dorsiflexion with Knee Flexed 6 Dorsiflexion with Knee Extended 4 Plantarflexion 10 Left Ankle/Foot ROM WFL No Testing Position Supine Dorsiflexion with Knee Flexed 8 Dorsiflexion with Knee Extended 5 Plantarflexion 10 PT-OP-M Strength Start: 12/30/17 09:37 Freq: Status: Active Protocol: Document 12/29/17 15:15 AMH (Rec: 12/30/17 14:17 AMH [email or web address]) Ankle/Foot Strength Ankle and Foot Manual Muscle Testing Right Dorsiflexion (L4) 3 Fair Plantarflexion (S1) 3 Fair Inversion 4- Good- Eversion (S1) 4- Good- Left Dorsiflexion (L4) 3+ Fair+ Plantarflexion (S1) 3+ Fair+ Inversion 4 Good Eversion (S1) 4 Good PT-OP-Q Treatments Start: 12/30/17 09:37 Freq: Status: Active Protocol: Document 05/05/18 13:45 AMB (Rec: 05/05/18 15:21 AMB [email or web address]) Therapeutic Exercises Standing Exercises 6 Standing Exercise Name JCARLOS calf stretch Reps/Minutes 30x2 Therapeutic Activity Therapeutic Activity 2 Name Sit to stand Reps/Minutes 10 reps Comments caregiver training to avoid caregiver/pt injury 1 Name zipper Gait Training Gait Activity 1 Description walking over smooth surfaces Comments no Neuro Re-Education Treatment Balance Activities 7 Details Seated rotation Reps/Duration 10 6 Details Forward stepping with reach Reps/Duration 20 5 Details Backward stepping Reps/Duration 10 each side 4 Details Side stepping Reps/Duration 10 each side 3 Details Rock and reach Reps/Duration 2x12 2 Details WBOS trunk rotation Reps/Duration 12 1 Details Seated forward reach Reps/Duration 10 PT-OP-T Assessment and Plan Start: 12/30/17 09:37 Freq: Status: Active Protocol: Document 05/05/18 13:45 AMB (Rec: 05/05/18 15:21 AMB [email or web address]) Physical Therapy Assessment Assessment Summary Assessment Pt doing well today without UE support, did need one instance of Jess[place] to prevent LOB. Physical Therapy Plan Next Visit Focus/Plan Next Note Type Treatment Note Next Visit Plan Look into plane transfers.
--- NOTE | 2018-05-06 15:42 | PT.OTN ---
Current Diagnoses Other abnormalities of gait and mobility (05/06/18) Unspecified abnormalities of gait and mobility (05/06/18) Physical Therapy Treatment Note PT-OP-A Visit Information Start: 12/30/17 09:37 Freq: Status: Active Protocol: Document 05/06/18 14:00 AMB (Rec: 05/06/18 15:42 AMB [email or web address]) Out-Patient Physical Therapy Visit Information Visit Information Visit Type Treatment Note Visit Note 10/20 Visit Start Time 14:00 Visit Stop Time 14:55 Total Visit Minutes 55 Visit Number 29 PT-OP-B Current Condition Start: 12/30/17 09:37 Freq: Status: Active Protocol: Document 04/12/18 13:45 AMB (Rec: 04/12/18 15:36 AMB [email or web address]) Current Condition History of Current Condition Current Complaints Parkinson's disease History of Current Condition Recent diagnosis, pt's reports improvement with levadopa/carbidopa. Seeing neurologist for first time this week. Pt's reports freezing. He has a cane and a walker at home but doesn't really use them. They have 16 stairs to enter their home with one railing PT-OP-C Subjective Start: 12/30/17 09:37 Freq: Status: Active Protocol: Document 05/06/18 14:00 AMB (Rec: 05/06/18 15:42 AMB [email or web address]) OP-PT Subjective Patient Comments Patient Comments Pt states he is hungry and dizzy. states they ate breakfast but haven't eaten since then. PT-OP-D Balance Start: 12/30/17 09:37 Freq: Status: Active Protocol: Document 04/12/18 13:45 AMB (Rec: 04/12/18 15:11 AMB [email or web address]) Balance Tests Romberg Romberg unable Single Limb Standing Single Limb- Right unable Single Limb- Left unable Other Other Balance Tests Performed NBOS EC: ankle sway, CGA but able to perform for 10 seconds without LOB. PT-OP-E Functional Tests Start: 04/12/18 15:11 Freq: Status: Active Protocol: Document 04/12/18 13:45 AMB (Rec: 04/12/18 15:14 AMB [email or web address]) Functional Tests 6 Minute Walk Test Distance 685 feet Device Used none Five Times Sit to Stand Test Score 19 sec PT-OP-G Mobility & Gait Start: 12/30/17 09:37 Freq: Status: Active Protocol: Document 04/12/18 13:45 AMB (Rec: 04/12/18 15:11 AMB [email or web address]) OP Mobility Evaluation Transfers Sit to Stand needs UE support OP Gait Assessment Comments Gait Comments Ambulates without AD, lack of trunk rotation, arm swing, ankle dorsiflexion during swing. PT-OP-H Neuro Start: 03/25/18 11:23 Freq: Status: Active Protocol: Document 03/24/18 15:15 RCC (Rec: 03/25/18 11:31 RCC [email or web address]) Vital Signs Blood Pressure Sitting Blood Pressure (90/60-120/80 mmHg) 120/62 Blood Pressure Source Manual Cuff Left Upper Extremity PT-OP-K Range of Motion Start: 12/30/17 09:37 Freq: Status: Active Protocol: Document 12/29/17 15:15 AMH (Rec: 12/30/17 14:17 AMH [email or web address]) Ankle and Foot Goniometric Range of Motion Ankle and Foot Measured in Degrees Right Ankle/Foot ROM WFL No Testing Position Supine Dorsiflexion with Knee Flexed 6 Dorsiflexion with Knee Extended 4 Plantarflexion 10 Left Ankle/Foot ROM WFL No Testing Position Supine Dorsiflexion with Knee Flexed 8 Dorsiflexion with Knee Extended 5 Plantarflexion 10 PT-OP-M Strength Start: 12/30/17 09:37 Freq: Status: Active Protocol: Document 12/29/17 15:15 AMH (Rec: 12/30/17 14:17 AMH [email or web address]) Ankle/Foot Strength Ankle and Foot Manual Muscle Testing Right Dorsiflexion (L4) 3 Fair Plantarflexion (S1) 3 Fair Inversion 4- Good- Eversion (S1) 4- Good- Left Dorsiflexion (L4) 3+ Fair+ Plantarflexion (S1) 3+ Fair+ Inversion 4 Good Eversion (S1) 4 Good PT-OP-Q Treatments Start: 12/30/17 09:37 Freq: Status: Active Protocol: Document 05/06/18 14:00 AMB (Rec: 05/06/18 15:42 AMB [email or web address]) Therapeutic Exercises Standing Exercises 6 Standing Exercise Name JCARLOS calf stretch Reps/Minutes 30x2 5 Standing Exercise Name shoulder stretch- wall Reps/Minutes 30x2 Therapeutic Activity Therapeutic Activity 2 Name Sit to stand Reps/Minutes 10 reps Neuro Re-Education Treatment Balance Activities 7 Details Seated rotation Reps/Duration 10 6 Details Forward stepping with reach Reps/Duration 20 5 Details Backward stepping Reps/Duration 10 each side 4 Details Side stepping Reps/Duration 10 each side 3 Details Rock and reach Reps/Duration 2x12 2 Details WBOS trunk rotation Reps/Duration 12 1 Details Seated forward reach Reps/Duration 10 PT-OP-T Assessment and Plan Start: 12/30/17 09:37 Freq: Status: Active Protocol: Document 05/06/18 14:00 AMB (Rec: 05/06/18 15:42 AMB [email or web address]) Physical Therapy Assessment Assessment Summary Assessment Pt needed more cueing and overall had a more difficult day today. That said, 5x sit to stand much better than at eval. Physical Therapy Plan Next Visit Focus/Plan Next Note Type Discharge Summary Next Visit Plan Restest objective measures
--- NOTE | 2018-05-07 16:34 | PT.OTN ---
Current Diagnoses Other abnormalities of gait and mobility (05/07/18) Unspecified abnormalities of gait and mobility (05/07/18) Physical Therapy Treatment Note PT-OP-A Visit Information Start: 12/30/17 09:37 Freq: Status: Active Protocol: Document 05/07/18 13:45 AMB (Rec: 05/07/18 16:34 AMB [email or web address]) Out-Patient Physical Therapy Visit Information Visit Information Visit Type Treatment Note Visit Note 11/19 Visit Start Time 13:45 Visit Stop Time 14:45 Total Visit Minutes 55 Visit Number 30 PT-OP-B Current Condition Start: 12/30/17 09:37 Freq: Status: Active Protocol: Document 04/12/18 13:45 AMB (Rec: 04/12/18 15:36 AMB [email or web address]) Current Condition History of Current Condition Current Complaints Parkinson's disease History of Current Condition Recent diagnosis, pt's reports improvement with levadopa/carbidopa. Seeing neurologist for first time this week. Pt's reports freezing. He has a cane and a walker at home but doesn't really use them. They have 16 stairs to enter their home with one railing PT-OP-C Subjective Start: 12/30/17 09:37 Freq: Status: Active Protocol: Document 05/07/18 13:45 AMB (Rec: 05/07/18 16:34 AMB [email or web address]) OP-PT Subjective Patient Comments Patient Comments Pt doing well today, reports they did the exercises today and he did well. They are going to [place] this weekend. PT-OP-D Balance Start: 12/30/17 09:37 Freq: Status: Active Protocol: Document 04/12/18 13:45 AMB (Rec: 04/12/18 15:11 AMB [email or web address]) Balance Tests Romberg Romberg unable Single Limb Standing Single Limb- Right unable Single Limb- Left unable Other Other Balance Tests Performed NBOS EC: ankle sway, CGA but able to perform for 10 seconds without LOB. PT-OP-E Functional Tests Start: 04/12/18 15:11 Freq: Status: Active Protocol: Document 05/07/18 13:45 AMB (Rec: 05/07/18 14:23 AMB [id number]) Functional Tests 6 Minute Walk Test Distance 1230 feet Device Used none PT-OP-G Mobility & Gait Start: 12/30/17 09:37 Freq: Status: Active Protocol: Document 05/07/18 13:45 AMB (Rec: 05/07/18 16:34 AMB [email or web address]) OP Gait Assessment Comments Gait Comments Pt ambulates without assistive device. He can at time with cueing walk well, but sometimes does revert to a shuffling gait. PT-OP-H Neuro Start: 03/25/18 11:23 Freq: Status: Active Protocol: Document 03/24/18 15:15 RCC (Rec: 03/25/18 11:31 RCC [email or web address]) Vital Signs Blood Pressure Sitting Blood Pressure (90/60-120/80 mmHg) 120/62 Blood Pressure Source Manual Cuff Left Upper Extremity PT-OP-K Range of Motion Start: 12/30/17 09:37 Freq: Status: Active Protocol: Document 12/29/17 15:15 AMH (Rec: 12/30/17 14:17 AMH [email or web address]) Ankle and Foot Goniometric Range of Motion Ankle and Foot Measured in Degrees Right Ankle/Foot ROM WFL No Testing Position Supine Dorsiflexion with Knee Flexed 6 Dorsiflexion with Knee Extended 4 Plantarflexion 10 Left Ankle/Foot ROM WFL No Testing Position Supine Dorsiflexion with Knee Flexed 8 Dorsiflexion with Knee Extended 5 Plantarflexion 10 PT-OP-M Strength Start: 12/30/17 09:37 Freq: Status: Active Protocol: Document 12/29/17 15:15 AMH (Rec: 12/30/17 14:17 AMH [email or web address]) Ankle/Foot Strength Ankle and Foot Manual Muscle Testing Right Dorsiflexion (L4) 3 Fair Plantarflexion (S1) 3 Fair Inversion 4- Good- Eversion (S1) 4- Good- Left Dorsiflexion (L4) 3+ Fair+ Plantarflexion (S1) 3+ Fair+ Inversion 4 Good Eversion (S1) 4 Good PT-OP-Q Treatments Start: 12/30/17 09:37 Freq: Status: Active Protocol: Document 05/07/18 13:45 AMB (Rec: 05/07/18 16:34 AMB [email or web address]) Gait Training Gait Activity 1 Description walking over smooth surfaces Comments no AD Neuro Re-Education Treatment Balance Activities 7 Details Seated rotation Reps/Duration 10 6 Details Forward stepping with reach Reps/Duration 20 5 Details Backward stepping Reps/Duration 10 each side 4 Details Side stepping Reps/Duration 10 each side 3 Details Rock and reach Reps/Duration 2x12 2 Details WBOS trunk rotation Reps/Duration 12 1 Details Seated forward reach Reps/Duration 10 PT-OP-T Assessment and Plan Start: 12/30/17 09:37 Freq: Status: Active Protocol: Document 05/07/18 13:45 AMB (Rec: 05/07/18 16:34 AMB [email or web address]) Physical Therapy Assessment Goals Four Impairment unable to perform sit-stand without use of hands Short Term Goal (STG) The patient will be independent with a toilet transfer. STG Duration MET K 9 Handler/ Deputy Goal (LTG) improve functional squat and balance improving ability for Heather to sit and stand without use of his hands LTG Duration MET Three Impairment poor postural habits contributing to forward trunk lean K 9 Handler/ Deputy Goal (LTG) Heather is given a strengthening program for improved posture to decrease forward lean and decreased loss of balance in a forward direction LTG Duration MET Two Impairment Gait Short Term Goal (STG) The patient will ambulate with his for 15 minutes without forward lean, shuffling gait. STG Duration PARTIALLY MET K 9 Handler/ Deputy Goal (LTG) The patient will show improved 6MWT to 850 feet. LTG Duration MET One Impairment poor ankle ROM and calf tightness limiting ankle DF for gait/balance Short Term Goal (STG) Improve ankle ROM and calf flexibility to help improve ankle strategy for balance reactions STG Duration MET Assessment Summary Assessment The patient has almost doubled the distance he can walk in 6 minutes to within 100 feet of age/gender norms. He remains a fall risk, but is at the point where teaching him to use a cane appropriately isn't working cognitively, and his is very hesitant to having him use a walker. She reports he is now able to get in and out of bed independently (previously she was helping him). As long as she continues to lead him in his HEP he should be able to maintain his improvements ( although patient's with cognitive impairments do sometimes need a refresher course in 6 months to 1 year). Physical Therapy Plan Discharge Physical Therapy Discharge Reasons Goals Met
== END 2018-05-11 11:57 ==
LOC: PHYS 13:45
PROVIDERS: Family Provider Physician Assistant; PCP Physician Assistant; Visit Provider Physician Assistant
DX: R26.9 Unspecified abnormalities of gait and mobility (principal); R26.89 Other abnormalities of gait and mobility
CPT/HCPCS: 97110; 97112; 97116; 97161; 97164; 97530

== ENCOUNTER 2019-03-22 16:00 | Outpatient (RCR) | payer MEDICARE, SELFPAY ==
--- NOTE | 2018-11-19 11:15 | PT.OIE ---
Current Diagnoses Dementia in other diseases classified elsewhere without behavioral disturbance (11/19/18) Dementia with Lewy bodies (11/19/18) Past Medical History (Last Updated 03/18/18 @ 21:26 by Cecille Hanks RN) Parkinson disease (Acute) BPH (benign prostatic hyperplasia) (Chronic 2011) Cold hands and feet (Chronic) Hearing loss (Chronic 2011) Hypothyroidism (Chronic Unknown) Low testosterone (Chronic Unknown) Memory loss (Chronic) No sense of smell (Chronic) Peripheral neuropathy (Chronic ~2013) Vertigo (Chronic 2011) Chickenpox (Resolved) Colon polyps (Resolved 2011) Elevated cortisol level (Resolved 01/2016) Melanoma (Resolved ~03/2017) Shoulder pain (Resolved 2015) Skin lesions (Resolved) Past Surgical History (Last Reviewed 03/18/18 @ 20:07 by Eren Hayden MD) Hx of melanoma excision (Resolved 03/2017) Status post appendectomy (~194) Provider Visit Care Team Role Provider Type Ralph Lara MD Primary Care Provider Physician Specialty: Internal Medicine Address: [address] [place] [address], [id number] Email: Gigi Briceño MD Attending Provider Non-Staff Specialty: Internal Medicine Address: [address] [place] [address], [phone] Fax: Email: Physical Therapy Initial Evaluation PT-OP-A Visit Information Start: 11/19/18 15:32 Freq: Status: Active Protocol: Document 11/19/18 11:15 RCC (Rec: 11/19/18 15:59 RCC [email or web address]) Out-Patient Physical Therapy Visit Information Visit Information Visit Type Initial Evaluation Visit Start Time 11:15 Visit Stop Time 12:00 Total Visit Minutes 45 Visit Number 1 Number of [employer]ESSIONAL Visits 0 Evaluation Information Evaluation Date 11/19/18 Precautions Precautions memory impairment, fall risk- use gait belt PT-OP-B Current Condition Start: 11/19/18 15:32 Freq: Status: Active Protocol: Document 11/19/18 11:15 RCC (Rec: 11/19/18 15:59 RCC [email or web address]) Current Condition History of Current Condition Onset Date balance worsening since returning from [place] 1-2 mos ago Current Complaints poor balance, falls, impaired gait tolerance History of Current Condition Pt is an 83 y/o male presenting to physical therapy with his , with speaking on behalf of the pt. She notes that pt had issues with his Parkinson's medication over the winter time while staying in [place], which caused him to fall and be hospitalized and do rehabilitation until his medication could be sorted out. This is now resolved. Pt 's reports that Heather was walking with her 30-45 min per day outdoors on level surfaces while in [place], but since coming home he has not tolerated walking much except short distances only up to ~10 min. Pt has had 2 falls in the past 6 months, most recent this past week when trying to walk in the back yard. No acute injury. Pt did have some R knee discomfort which now appears to be resolved as well. states that he requires physical assistance to get laying down into bed either flat or with a wedge, but can get supine to sit independently. They are remodeling their home so Heather can live on the main level, but still needs to manage stairs to get in/out of home. She would like to get a transport chair for Heather, as she feels a w/c is too heavy and would not fit into the bathroom of their home. Pt 's wants to improve his bed mobility, standing balance , and gait. He has a new diagnosis of Lewy body dementia without behavioral disturbance. PT-OP-C Subjective Start: 11/19/18 15:32 Freq: Status: Active Protocol: Document 11/19/18 11:15 [facility] (Rec: 11/19/18 16:51 [facility] [email or web address]) OP-PT Subjective Patient Comments Patient Reported Progress Worse PT-OP-E Functional Tests Start: 11/19/18 15:32 Freq: Status: Active Protocol: Document 11/19/18 11:15 RCC (Rec: 11/19/18 16:51 [facility] [email or web address]) Functional Tests Dynamic Gait Index (DGI) Score 10 DGI Impairment Rating 40 to <60% Impaired (Score 10- 14) PT-OP-G Mobility & Gait Start: 11/19/18 15:32 Freq: Status: Active Protocol: Document 11/19/18 11:15 RCC (Rec: 11/19/18 16:51 [facility] [email or web address]) OP Mobility Evaluation Bed Mobility Supine to and from Sit sit to supine- mod assist ( requires assist for BLEs) supine to sit- indep. OP Gait Assessment Gait Gait Assistance Required: Standby Assistance Assistive Devices Assistive Device Gait Belt Gait Deviations General Gait Pattern Decreased Stride Length Decreased Feet Clearance Festinating Flexed Trunk Factors Limiting Gait Function Factors Limiting Gait Function Decreased Activity Tolerance Incoordination Poor Balance Poor Safety Awareness Stair Climbing Evaluation Comments Stair Climbing Comments occasional foot hitting higher step when descending with step-through and R rail PT-OP-Q Treatments Start: 11/19/18 15:32 Freq: Status: Active Protocol: Document 11/19/18 11:15 RCC (Rec: 11/19/18 16:51 RCC [email or web address]) Therapeutic Activity Therapeutic Activity HEP Name discussed with pt about performing prior BIG exercises until next session Comments reported intermittent compliance with these PT-OP-T Assessment and Plan Start: 11/19/18 15:32 Freq: Status: Active Protocol: Document 11/19/18 11:15 RCC (Rec: 11/19/18 16:51 RCC [email or web address]) Physical Therapy Assessment Rehab Potential Rehabilitation Potential Fair Evaluation Complexity Number of Personal Factors/Comorbidities 3 or More Number of Body Systems Impaired 4 or More Clinical Presentation at Evaluation Evolving Impairments Impairments Activity Tolerance Balance Functional Activities Functional Mobility Gait Posture Other Concerns Fall Risk yes Barriers to Rehabilitation personal factors include: Parkinson's Disease, dementia/ cognitive impairment, h/o hyper and hypotension, multiple falls in past 6 mos Goals recreational activities Impairment pt only able to tolerate 10 min walking level surfaces Short Term Goal (STG) pt will be able to walk 20 min , 5 days per week outdoors on level surfaces with SBA STG Duration 6 weeks Detention Goal (LTG) pt will be able to walk 30 min , 5 days per week outdoors on level surfaces with SBA LTG Duration 12 weeks Falls Impairment 2 falls in past 6 months High Man Goal (LTG) Pt will remain without fall for 6 weeks or greater prior to d/c from physical therapy. LTG Duration 12 weeks Dynamic Gait Index Impairment 10/24 on Dynamic Gait Index Short Term Goal (STG) 14/24 on Dynamic Gait Index STG Duration 6 weeks High Man Goal (LTG) 17/24 or greater on Dynamic Gait Index LTG Duration 12 weeks Assessment Summary Assessment Pt presenting with a score of 10/24 on the Dynamic Gait Index, indicating pt is at risk for future falls. He has had 2 falls in the past 6 months per . Overall, pt with festinating gait with flexed forward trunk and occasionally toe drag bilaterally, all increasing his risk for falls as well. Pt would benefit from physical therapy for gait and balance training, progression of mobility training including bed mobility, and family education to decrease risk for falls and promote return to prior level of functional activities including walking for exercise to achieve cardiovascular improvements as well. Physical Therapy Plan Frequency and Duration Frequency of Treatment 2x/Week Duration of Treatment 12 weeks Plan of Care Start Date 11/19/18 Plan of Care End Date 02/11/19 Therapeutic Interventions Therapeutic Interventions Aquatic Therapy Balance Training Gait Training Home Exercise Program Manual Therapy Neuromuscular Re-education Patient/Caregiver Education Self-Care/Home Management Taping Therapeutic Activities Therapeutic Exercises Next Visit Focus/Plan Next Note Type Treatment Note Next Visit Plan 6 Minute Walk Test; standing and sitting posture with emphasis on upright and shoulders back; hurdles with and without UE support; add static standing with UE movements to HEP and squats/ STS
--- NOTE | 2018-11-19 11:15 | PT.OPPOC ---
Current Diagnoses Dementia in other diseases classified elsewhere without behavioral disturbance (11/19/18) Dementia with Lewy bodies (11/19/18) Provider Visit Care Team Role Provider Type Ralph Lara MD Primary Care Provider Physician Specialty: Internal Medicine Address: [address] [place] [address], [phone] Email: Gigi Briceño MD Attending Provider Non-Staff Specialty: Internal Medicine Address: [address] [place] [address], [phone] Fax: Email: Plan Of Care PT-OP-T Assessment and Plan Start: 11/19/18 15:32 Freq: Status: Active Protocol: Document 11/19/18 11:15 RCC (Rec: 11/19/18 16:51 RCC [email or web address]) Physical Therapy Assessment Rehab Potential Rehabilitation Potential Fair Evaluation Complexity Number of Personal Factors/Comorbidities 3 or More Number of Body Systems Impaired 4 or More Clinical Presentation at Evaluation Evolving Impairments Impairments Activity Tolerance Balance Functional Activities Functional Mobility Gait Posture Other Concerns Fall Risk yes Barriers to Rehabilitation personal factors include: Parkinson's Disease, dementia/ cognitive impairment, h/o hyper and hypotension, multiple falls in past 6 mos Goals recreational activities Impairment pt only able to tolerate 10 min walking level surfaces Short Term Goal (STG) pt will be able to walk 20 min , 5 days per week outdoors on level surfaces with SBA STG Duration 6 weeks [facility] Goal (LTG) pt will be able to walk 30 min , 5 days per week outdoors on level surfaces with SBA LTG Duration 12 weeks Falls Impairment 2 falls in past 6 months [facility] Goal (LTG) Pt will remain without fall for 6 weeks or greater prior to d/c from physical therapy. LTG Duration 12 weeks Dynamic Gait Index Impairment 10/24 on Dynamic Gait Index Short Term Goal (STG) 14/24 on Dynamic Gait Index STG Duration 6 weeks [facility] Goal (LTG) 17/24 or greater on Dynamic Gait Index LTG Duration 12 weeks Assessment Summary Assessment Pt presenting with a score of 10/24 on the Dynamic Gait Index, indicating pt is at risk for future falls. He has had 2 falls in the past 6 months per . Overall, pt with festinating gait with flexed forward trunk and occasionally toe drag bilaterally, all increasing his risk for falls as well. Pt would benefit from physical therapy for gait and balance training, progression of mobility training including bed mobility, and family education to decrease risk for falls and promote return to prior level of functional activities including walking for exercise to achieve cardiovascular improvements as well. Physical Therapy Plan Frequency and Duration Frequency of Treatment 2x/Week Duration of Treatment 12 weeks Plan of Care Start Date 11/19/18 Plan of Care End Date 02/11/19 Therapeutic Interventions Therapeutic Interventions Aquatic Therapy Balance Training Gait Training Home Exercise Program Manual Therapy Neuromuscular Re-education Patient/Caregiver Education Self-Care/Home Management Taping Therapeutic Activities Therapeutic Exercises Next Visit Focus/Plan Next Note Type Treatment Note Next Visit Plan 6 Minute Walk Test; standing and sitting posture with emphasis on upright and shoulders back; hurdles with and without UE support; add static standing with UE movements to HEP and squats/ STS Plan of Care Dates Plan of Care Start Date 11/19/18 Plan of Care End Date 02/11/19 Please Sign and Return: I have reviewed this Plan of Care and certify that the skilled therapy services above are required to meet the patient?s needs. Physician Signature Date Printed Name and Credentials Clinical Instructor Signature Printed Name and Credentials
--- NOTE | 2018-12-03 13:45 | PT.OTN ---
Current Diagnoses Dementia in other diseases classified elsewhere without behavioral disturbance (12/03/18) Dementia with Lewy bodies (12/03/18) Physical Therapy Treatment Note PT-OP-A Visit Information Start: 11/19/18 15:32 Freq: Status: Active Protocol: Document 12/03/18 13:45 DLM (Rec: 12/03/18 16:34 DLM [id number]) Out-Patient Physical Therapy Visit Information Visit Information Visit Type Treatment Note Visit Start Time 13:45 Visit Stop Time 14:30 Total Visit Minutes 45 Visit Number 2 Number of LINING BRUSHER Visits 0 Evaluation Information Evaluation Date 11/19/18 Precautions Precautions memory impairment, fall risk- use gait belt PT-OP-B Current Condition Start: 11/19/18 15:32 Freq: Status: Active Protocol: Document 11/19/18 11:15 RCC (Rec: 11/19/18 15:59 RCC [email or web address]) Current Condition History of Current Condition Onset Date balance worsening since returning from [place] 1-2 mos ago Current Complaints poor balance, falls, impaired gait tolerance History of Current Condition Pt is an 83 y/o male presenting to physical therapy with his , with speaking on behalf of the pt. She notes that pt had issues with his Parkinson's medication over the winter time while staying in [place], which caused him to fall and be hospitalized and do rehabilitation until his medication could be sorted out. This is now resolved. Pt 's reports that Heather was walking with her 30-45 min per day outdoors on level surfaces while in [place], but since coming home he has not tolerated walking much except short distances only up to ~10 min. Pt has had 2 falls in the past 6 months, most recent this past week when trying to walk in the back yard. No acute injury. Pt did have some R knee discomfort which now appears to be resolved as well. states that he requires physical assistance to get laying down into bed either flat or with a wedge, but can get supine to sit independently. They are remodeling their home so Heather can live on the main level, but still needs to manage stairs to get in/out of home. She would like to get a transport chair for Heather, as she feels a w/c is too heavy and would not fit into the bathroom of their home. Pt 's wants to improve his bed mobility, standing balance , and gait. He has a new diagnosis of Lewy body dementia without behavioral disturbance. PT-OP-C Subjective Start: 11/19/18 15:32 Freq: Status: Active Protocol: Document 12/03/18 13:45 DLM (Rec: 12/03/18 16:34 DLM [id number]) OP-PT Subjective Patient Comments Patient Comments His wants to try the treadmill. They have a treadmill at home and she was questioning if they should be using it or get rid of it. PT-OP-E Functional Tests Start: 11/19/18 15:32 Freq: Status: Active Protocol: Document 11/19/18 11:15 RCC (Rec: 11/19/18 16:51 RCC [email or web address]) Functional Tests Dynamic Gait Index (DGI) Score 10 DGI Impairment Rating 40 to <60% Impaired (Score 10- 14) PT-OP-G Mobility & Gait Start: 11/19/18 15:32 Freq: Status: Active Protocol: Document 11/19/18 11:15 RCC (Rec: 11/19/18 16:51 RCC [email or web address]) OP Mobility Evaluation Bed Mobility Supine to and from Sit sit to supine- mod assist ( requires assist for BLEs) supine to sit- indep. OP Gait Assessment Gait Gait Assistance Required: Standby Assistance Assistive Devices Assistive Device Gait Belt Gait Deviations General Gait Pattern Decreased Stride Length Decreased Feet Clearance Festinating Flexed Trunk Factors Limiting Gait Function Factors Limiting Gait Function Decreased Activity Tolerance Incoordination Poor Balance Poor Safety Awareness Stair Climbing Evaluation Comments Stair Climbing Comments occasional foot hitting higher step when descending with step-through and R rail PT-OP-Q Treatments Start: 11/19/18 15:32 Freq: Status: Active Protocol: Document 12/03/18 13:45 DLM (Rec: 12/03/18 16:34 DLM [id number]) Cardio Equipment Recumbent Bicycle Duration (Minutes) 5 Resistance Level 4 Seat Position 6 Other assistance on/off the bike Treadmill Duration (Minutes) 3 Speed 1.0 Incline Will not be continuing this in therapy due to high fall risk Other pt has difficulty taking consistent steps and standing erect Therapeutic Exercises Sitting Exercises 2 Sitting Exercise Name Sit-stand Reps/Minutes x 10 reps Comments without UE support, SBA for safety 1 Sitting Exercise Name Reach to floor then up over head with stretch Side bilateral Resistance active Equipment Used 5 reps Standing Exercises hip extension Side bilateral Equipment Used UE support, bar on wall Reps/Minutes x 10 reps each 6 Standing Exercise Name Marching Side bilateral Equipment Used UE support, bar on wall Reps/Minutes x 10 reps 5 Standing Exercise Name Hip abduction Side bilateral Equipment Used UE support, bar on wall Reps/Minutes x 10 reps each 4 Standing Exercise Name Heel Raises Side bilateral Equipment Used UE support, bar on wall Reps/Minutes x 10 reps Neuro Re-Education Treatment Balance Activities 2 Details Placing foot on/off step Surface firm Equipment UE support, bar on wall Reps/Duration 10 reps each Comments forward and sideways 1 Details Standing in narrow base of support Surface firm Equipment next to bar on wall Reps/Duration x 3 reps Comments added head motions Self-Care/Home Management Treatment Education Patient Education Fall Risk Home Exercise Program Caregiver Education His was present this visit and participated in education. Other Education I do not recommend pt use treadmill at home due to high fall risk. Pt has a stationary bike that would be a safer option PT-OP-T Assessment and Plan Start: 11/19/18 15:32 Freq: Status: Active Protocol: Document 12/03/18 13:45 DLM (Rec: 12/03/18 16:34 DLM [id number]) Physical Therapy Assessment Goals recreational activities Impairment pt only able to tolerate 10 min walking level surfaces Short Term Goal (STG) pt will be able to walk 20 min , 5 days per week outdoors on level surfaces with SBA STG Duration 6 weeks [facility] Goal (LTG) pt will be able to walk 30 min , 5 days per week outdoors on level surfaces with SBA LTG Duration 12 weeks Falls Impairment 2 falls in past 6 months [employer] Goal (LTG) Pt will remain without fall for 6 weeks or greater prior to d/c from physical therapy. LTG Duration 12 weeks Dynamic Gait Index Impairment 10 on Dynamic Gait Index Short Term Goal (STG) 14 on Dynamic Gait Index STG Duration 6 weeks [facility] Goal (LTG) 17 or greater on Dynamic Gait Index LTG Duration 12 weeks Progress Towards Goals Progress Comments no significant change since this is his second visit Assessment Summary Assessment Heather tolerated this treatment session well over- all with fatigue. Noted his posture becomes more flexed as he fatigues. His is present and supportive this visit. Assessed his ability to safely use a treadmill per his 's request. Pt is high risk for falls on a treadmill so I do not recommend he use on at home or in the clinic. He nees frequent physical and verbal cues during activities to keep him on task. He needs intermittent seated rest breaks to manage his fall risks. Gait belt used throughout this visit to manage his fall risks. Physical Therapy Plan Frequency and Duration Frequency of Treatment 2x/Week Duration of Treatment 12 weeks Plan of Care Start Date 11/19/18 Plan of Care End Date 02/11/19 Next Visit Focus/Plan Next Note Type Treatment Note Next Visit Plan 6 Minute Walk Test; hurdles with and without UE support; add static standing with UE movements to HEP
--- NOTE | 2018-12-07 12:31 | PT.OTN ---
Current Diagnoses Dementia in other diseases classified elsewhere without behavioral disturbance (12/07/18) Dementia with Lewy bodies (12/07/18) Physical Therapy Treatment Note PT-OP-A Visit Information Start: 11/19/18 15:32 Freq: Status: Active Protocol: Document 12/07/18 12:16 EA (Rec: 12/07/18 12:22 EA [id number]) Out-Patient Physical Therapy Visit Information Visit Information Visit Type Treatment Note Visit Start Time 10:30 Visit Stop Time 11:10 Total Visit Minutes 40 Visit Number 3 PT-OP-B Current Condition Start: 11/19/18 15:32 Freq: Status: Active Protocol: Document 11/19/18 11:15 RCC (Rec: 11/19/18 15:59 RCC [email or web address]) Current Condition History of Current Condition Onset Date balance worsening since returning from [place] 1-2 mos ago Current Complaints poor balance, falls, impaired gait tolerance History of Current Condition Pt is an 83 y/o male presenting to physical therapy with his , with speaking on behalf of the pt. She notes that pt had issues with his Parkinson's medication over the winter time while staying in [place], which caused him to fall and be hospitalized and do rehabilitation until his medication could be sorted out. This is now resolved. Pt 's reports that Heather was walking with her 30-45 min per day outdoors on level surfaces while in [place], but since coming home he has not tolerated walking much except short distances only up to ~10 min. Pt has had 2 falls in the past 6 months, most recent this past week when trying to walk in the back yard. No acute injury. Pt did have some R knee discomfort which now appears to be resolved as well. states that he requires physical assistance to get laying down into bed either flat or with a wedge, but can get supine to sit independently. They are remodeling their home so Heather can live on the main level, but still needs to manage stairs to get in/out of home. She would like to get a transport chair for Heather, as she feels a w/c is too heavy and would not fit into the bathroom of their home. Pt 's wants to improve his bed mobility, standing balance , and gait. He has a new diagnosis of Lewy body dementia without behavioral disturbance. PT-OP-C Subjective Start: 11/19/18 15:32 Freq: Status: Active Protocol: Document 12/07/18 12:16 EA (Rec: 12/07/18 12:22 EA [id number]) OP-PT Subjective Patient Comments Patient Comments No new complaints PT-OP-E Functional Tests Start: 11/19/18 15:32 Freq: Status: Active Protocol: Document 11/19/18 11:15 RCC (Rec: 11/19/18 16:51 RCC [email or web address]) Functional Tests Dynamic Gait Index (DGI) Score 10 DGI Impairment Rating 40 to <60% Impaired (Score 10- 14) PT-OP-G Mobility & Gait Start: 11/19/18 15:32 Freq: Status: Active Protocol: Document 11/19/18 11:15 RCC (Rec: 11/19/18 16:51 RCC [email or web address]) OP Mobility Evaluation Bed Mobility Supine to and from Sit sit to supine- mod assist ( requires assist for BLEs) supine to sit- indep. OP Gait Assessment Gait Gait Assistance Required: Standby Assistance Assistive Devices Assistive Device Gait Belt Gait Deviations General Gait Pattern Decreased Stride Length Decreased Feet Clearance Festinating Flexed Trunk Factors Limiting Gait Function Factors Limiting Gait Function Decreased Activity Tolerance Incoordination Poor Balance Poor Safety Awareness Stair Climbing Evaluation Comments Stair Climbing Comments occasional foot hitting higher step when descending with step-through and R rail PT-OP-Q Treatments Start: 11/19/18 15:32 Freq: Status: Active Protocol: Document 12/07/18 12:16 EA (Rec: 12/07/18 12:22 EA [id number]) Cardio Equipment Recumbent Stepper (Sci-Fit) Duration (Minutes) 9 Resistance 1.5 Seat Position 12 Other use arms Therapeutic Exercises Sitting Exercises 2 Sitting Exercise Name Sit-stand Reps/Minutes x 10 reps x 2 sets Comments without UE support, SBA for safety Standing Exercises hip extension Side bilateral Equipment Used UE support, bar on wall Reps/Minutes x 10 reps each 6 Standing Exercise Name Marching Side bilateral Equipment Used UE support, bar s Reps/Minutes x 10 reps Comments on foam 5 Standing Exercise Name Hip abduction Side bilateral Equipment Used UE support, bar on wall Reps/Minutes x 10 reps each 4 Standing Exercise Name Heel Raises Side bilateral Equipment Used UE support, bar on wall Reps/Minutes x 10 reps Neuro Re-Education Treatment Balance Activities 8 Details Tandem stance Reps/Duration x 10 reps Comments shoulder ext with T-bar for psoture and balance: SBA with no hand support 2 Details Placing foot on/off step Surface firm Equipment UE support, bar on wall Reps/Duration 10 reps each Comments forward and sideways 1 Details Standing in narrow base of support Surface firm Equipment next to bar on wall Reps/Duration x 3 reps Comments added head motions, T-bar shoulder extension for psoture Other Activities step up/down Details walking backawards Reps/Duration x 6 min Comments with CGA PT-OP-T Assessment and Plan Start: 11/19/18 15:32 Freq: Status: Active Protocol: Document 12/07/18 12:16 EA (Rec: 12/07/18 12:22 EA [id number]) Physical Therapy Assessment Assessment Summary Assessment Pt requires constant cues for during therex and balance exercises and as well constant cues for posture. Physical Therapy Plan Next Visit Focus/Plan Next Note Type Treatment Note Next Visit Plan 6 Minute Walk Test; hurdles with and without UE support; add static standing with UE movements to HEP
--- NOTE | 2018-12-13 14:48 | PT.OTN ---
Current Diagnoses Dementia in other diseases classified elsewhere without behavioral disturbance (12/13/18) Dementia with Lewy bodies (12/13/18) Physical Therapy Treatment Note PT-OP-A Visit Information Start: 11/19/18 15:32 Freq: Status: Active Protocol: Document 12/13/18 10:15 AMB (Rec: 12/13/18 14:48 AMB [email or web address]) Out-Patient Physical Therapy Visit Information Visit Information Visit Type Treatment Note Visit Start Time 10:15 Visit Stop Time 11:00 Total Visit Minutes 40 Visit Number 4 PT-OP-B Current Condition Start: 11/19/18 15:32 Freq: Status: Active Protocol: Document 11/19/18 11:15 RCC (Rec: 11/19/18 15:59 RCC [email or web address]) Current Condition History of Current Condition Onset Date balance worsening since returning from [place] 1-2 mos ago Current Complaints poor balance, falls, impaired gait tolerance History of Current Condition Pt is an 83 y/o male presenting to physical therapy with his , with speaking on behalf of the pt. She notes that pt had issues with his Parkinson's medication over the winter time while staying in [place], which caused him to fall and be hospitalized and do rehabilitation until his medication could be sorted out. This is now resolved. Pt 's reports that Heather was walking with her 30-45 min per day outdoors on level surfaces while in [place], but since coming home he has not tolerated walking much except short distances only up to ~10 min. Pt has had 2 falls in the past 6 months, most recent this past week when trying to walk in the back yard. No acute injury. Pt did have some R knee discomfort which now appears to be resolved as well. states that he requires physical assistance to get laying down into bed either flat or with a wedge, but can get supine to sit independently. They are remodeling their home so Heather can live on the main level, but still needs to manage stairs to get in/out of home. She would like to get a transport chair for Heather, as she feels a w/c is too heavy and would not fit into the bathroom of their home. Pt 's wants to improve his bed mobility, standing balance , and gait. He has a new diagnosis of Lewy body dementia without behavioral disturbance. PT-OP-C Subjective Start: 11/19/18 15:32 Freq: Status: Active Protocol: Document 12/13/18 10:15 AMB (Rec: 12/13/18 14:48 AMB [email or web address]) OP-PT Subjective Patient Comments Patient Comments Heather's would like to review supine to sit and sit to stand transfers today. She states that he got up 5x last night, and that she needed to help him because he was groggy and that hurts her back . PT-OP-E Functional Tests Start: 11/19/18 15:32 Freq: Status: Active Protocol: Document 11/19/18 11:15 RCC (Rec: 11/19/18 16:51 RCC [email or web address]) Functional Tests Dynamic Gait Index (DGI) Score 10 DGI Impairment Rating 40 to <60% Impaired (Score 10- 14) PT-OP-G Mobility & Gait Start: 11/19/18 15:32 Freq: Status: Active Protocol: Document 11/19/18 11:15 RCC (Rec: 11/19/18 16:51 RCC [email or web address]) OP Mobility Evaluation Bed Mobility Supine to and from Sit sit to supine- mod assist ( requires assist for BLEs) supine to sit- indep. OP Gait Assessment Gait Gait Assistance Required: Standby Assistance Assistive Devices Assistive Device Gait Belt Gait Deviations General Gait Pattern Decreased Stride Length Decreased Feet Clearance Festinating Flexed Trunk Factors Limiting Gait Function Factors Limiting Gait Function Decreased Activity Tolerance Incoordination Poor Balance Poor Safety Awareness Stair Climbing Evaluation Comments Stair Climbing Comments occasional foot hitting higher step when descending with step-through and R rail PT-OP-Q Treatments Start: 11/19/18 15:32 Freq: Status: Active Protocol: Document 12/13/18 10:15 AMB (Rec: 12/13/18 14:48 AMB [email or web address]) Therapeutic Activity Therapeutic Activity 3 Name sit to stand Reps/Minutes 10 Comments vc to lean forward 2 Name rolling Reps/Minutes 5 Comments vc to punch with R arm to roll L. 1 Name supine <>sit Reps/Minutes 5 Gait Training Gait Activity 3 Description walking with focus on step height/length Device Used none Level of Assistance CGA Surface smooth Distance/Duration 300 feet PT-OP-T Assessment and Plan Start: 11/19/18 15:32 Freq: Status: Active Protocol: Document 12/13/18 10:15 AMB (Rec: 12/13/18 14:48 AMB [email or web address]) Physical Therapy Assessment Goals recreational activities Impairment pt only able to tolerate 10 min walking level surfaces Short Term Goal (STG) pt will be able to walk 20 min , 5 days per week outdoors on level surfaces with SBA STG Duration 6 weeks [employer] Administrator Goal (LTG) pt will be able to walk 30 min , 5 days per week outdoors on level surfaces with SBA LTG Duration 12 weeks Falls Impairment 2 falls in past 6 months Longterm Goal (LTG) Pt will remain without fall for 6 weeks or greater prior to d/c from physical therapy. LTG Duration 12 weeks Dynamic Gait Index Impairment 1024 on Dynamic Gait Index Short Term Goal (STG) 1424 on Dynamic Gait Index STG Duration 6 weeks Longterm Goal (LTG) 1724 or greater on Dynamic Gait Index LTG Duration 12 weeks Assessment Summary Assessment Heather did well today, his states it is easier here than at home, which is likely due to both the time of day and also the firmness of our tables vs his bed. Physical Therapy Plan Next Visit Focus/Plan Next Note Type Treatment Note Next Visit Plan 6 Minute Walk Test; hurdles with and without UE support;
--- NOTE | 2018-12-17 14:30 | PT.OTN ---
Current Diagnoses Dementia in other diseases classified elsewhere without behavioral disturbance (12/17/18) Dementia with Lewy bodies (12/17/18) Physical Therapy Treatment Note PT-OP-A Visit Information Start: 11/19/18 15:32 Freq: Status: Active Protocol: Document 12/17/18 14:30 RCC (Rec: 12/18/18 15:16 RCC [email or web address]) Out-Patient Physical Therapy Visit Information Visit Information Visit Type Treatment Note Visit Start Time 14:30 Visit Stop Time 15:15 Total Visit Minutes 45 Visit Number 5 Evaluation Information Evaluation Date 11/19/18 Precautions Precautions memory impairment, fall risk- use gait belt PT-OP-B Current Condition Start: 11/19/18 15:32 Freq: Status: Active Protocol: Document 11/19/18 11:15 RCC (Rec: 11/19/18 15:59 RCC [email or web address]) Current Condition History of Current Condition Onset Date balance worsening since returning from [place] 1-2 mos ago Current Complaints poor balance, falls, impaired gait tolerance History of Current Condition Pt is an 83 y/o male presenting to physical therapy with his , with speaking on behalf of the pt. She notes that pt had issues with his Parkinson's medication over the winter time while staying in [place], which caused him to fall and be hospitalized and do rehabilitation until his medication could be sorted out. This is now resolved. Pt 's reports that Heather was walking with her 30-45 min per day outdoors on level surfaces while in [place], but since coming home he has not tolerated walking much except short distances only up to ~10 min. Pt has had 2 falls in the past 6 months, most recent this past week when trying to walk in the back yard. No acute injury. Pt did have some R knee discomfort which now appears to be resolved as well. states that he requires physical assistance to get laying down into bed either flat or with a wedge, but can get supine to sit independently. They are remodeling their home so Heather can live on the main level, but still needs to manage stairs to get in/out of home. She would like to get a transport chair for Heather, as she feels a w/c is too heavy and would not fit into the bathroom of their home. Pt 's wants to improve his bed mobility, standing balance , and gait. He has a new diagnosis of Lewy body dementia without behavioral disturbance. PT-OP-C Subjective Start: 11/19/18 15:32 Freq: Status: Active Protocol: Document 12/17/18 14:30 RCC (Rec: 12/18/18 15:16 RCC [email or web address]) OP-PT Subjective Patient Comments Patient Comments Pt's notes that he is still having trouble getting in/out of bed. Heather fell in the kitchen 2 days ago losing monotype caster of the counter top when he turned around too quickly. PT-OP-E Functional Tests Start: 11/19/18 15:32 Freq: Status: Active Protocol: Document 12/17/18 14:30 RCC (Rec: 12/18/18 15:16 RCC [email or web address]) Functional Tests Timed Up and Go (TUG) Score 21.24 Comments avg of 3 trials PT-OP-G Mobility & Gait Start: 11/19/18 15:32 Freq: Status: Active Protocol: Document 11/19/18 11:15 RCC (Rec: 11/19/18 16:51 RCC [email or web address]) OP Mobility Evaluation Bed Mobility Supine to and from Sit sit to supine- mod assist ( requires assist for BLEs) supine to sit- indep. OP Gait Assessment Gait Gait Assistance Required: Standby Assistance Assistive Devices Assistive Device Gait Belt Gait Deviations General Gait Pattern Decreased Stride Length Decreased Feet Clearance Festinating Flexed Trunk Factors Limiting Gait Function Factors Limiting Gait Function Decreased Activity Tolerance Incoordination Poor Balance Poor Safety Awareness Stair Climbing Evaluation Comments Stair Climbing Comments occasional foot hitting higher step when descending with step-through and R rail PT-OP-Q Treatments Start: 11/19/18 15:32 Freq: Status: Active Protocol: Document 12/17/18 14:30 RCC (Rec: 12/18/18 15:16 RCC [email or web address]) Therapeutic Exercises Supine Exercises BLE lift Supine Exercise Name LE SL lift Side bilateral Reps/Minutes x10 bridge Side bilateral Reps/Minutes x15 Sitting Exercises partial reverse sit up Sitting Exercise Name partial reverse sit up with PT support and holding 10 lb medicine ball Reps/Minutes x12 shoulder flexion and abduction Side bilateral Resistance 2 lbs Reps/Minutes x10 each 2 Sitting Exercise Name Sit-stand Reps/Minutes x 10 reps x 2 sets Comments without UE support, SBA for safety Standing Exercises Rows Side bilateral Resistance L2 Reps/Minutes 2x15 Comments CGA for balance Therapeutic Activity Therapeutic Activity TUG testing Name Timed Up and Go Testing Reps/Minutes 5 min 1 Name supine <>sit Reps/Minutes 5 PT-OP-T Assessment and Plan Start: 11/19/18 15:32 Freq: Status: Active Protocol: Document 12/17/18 14:30 RCC (Rec: 12/18/18 15:16 RCC [email or web address]) Physical Therapy Assessment Assessment Summary Assessment Pt's Timed Up and Go testing to day averaged out to be 21. 24 seconds, which is partially increased due to his cognitive impairment and requiring reminders to sit down at end of testing. However, pt still is above the threshold for fall risk, and just recently had a fall 2 days ago. Physical Therapy Plan Frequency and Duration Frequency of Treatment 2x/Week Duration of Treatment 12 weeks Plan of Care Start Date 11/19/18 Plan of Care End Date 02/11/19 Next Visit Focus/Plan Next Note Type Treatment Note Next Visit Plan floor recovery, balance and gait for fall prevention
--- NOTE | 2018-12-23 15:15 | PT.OTN ---
Current Diagnoses Dementia in other diseases classified elsewhere without behavioral disturbance (12/23/18) Dementia with Lewy bodies (12/23/18) Physical Therapy Treatment Note PT-OP-A Visit Information Start: 11/19/18 15:32 Freq: Status: Active Protocol: Document 12/23/18 15:15 RCC (Rec: 12/25/18 11:18 RCC [email or web address]) Out-Patient Physical Therapy Visit Information Visit Information Visit Type Treatment Note Visit Start Time 15:15 Visit Stop Time 14:28 Total Visit Minutes 43 Visit Number 6 Number of PORCELAIN MIXER Visits 0 Evaluation Information Evaluation Date 11/19/18 Precautions Precautions memory impairment, fall risk- use gait belt PT-OP-B Current Condition Start: 11/19/18 15:32 Freq: Status: Active Protocol: Document 11/19/18 11:15 RCC (Rec: 11/19/18 15:59 RCC [email or web address]) Current Condition History of Current Condition Onset Date balance worsening since returning from [place] 1-2 mos ago Current Complaints poor balance, falls, impaired gait tolerance History of Current Condition Pt is an 83 y/o male presenting to physical therapy with his , with speaking on behalf of the pt. She notes that pt had issues with his Parkinson's medication over the winter time while staying in [place], which caused him to fall and be hospitalized and do rehabilitation until his medication could be sorted out. This is now resolved. Pt 's reports that Heather was walking with her 30-45 min per day outdoors on level surfaces while in [place], but since coming home he has not tolerated walking much except short distances only up to ~10 min. Pt has had 2 falls in the past 6 months, most recent this past week when trying to walk in the back yard. No acute injury. Pt did have some R knee discomfort which now appears to be resolved as well. states that he requires physical assistance to get laying down into bed either flat or with a wedge, but can get supine to sit independently. They are remodeling their home so Heather can live on the main level, but still needs to manage stairs to get in/out of home. She would like to get a transport chair for Heather, as she feels a w/c is too heavy and would not fit into the bathroom of their home. Pt 's wants to improve his bed mobility, standing balance , and gait. He has a new diagnosis of Lewy body dementia without behavioral disturbance. PT-OP-C Subjective Start: 11/19/18 15:32 Freq: Status: Active Protocol: Document 12/23/18 15:15 RCC (Rec: 12/25/18 11:18 RCC [email or web address]) OP-PT Subjective Patient Comments Patient Comments Pt's states Heather is improving with his bed mobility, but still worst at night-time. No falls this week PT-OP-E Functional Tests Start: 11/19/18 15:32 Freq: Status: Active Protocol: Document 12/17/18 14:30 RCC (Rec: 12/18/18 15:16 RCC [email or web address]) Functional Tests Timed Up and Go (TUG) Score 21.24 Comments avg of 3 trials PT-OP-G Mobility & Gait Start: 11/19/18 15:32 Freq: Status: Active Protocol: Document 11/19/18 11:15 RCC (Rec: 11/19/18 16:51 RCC [email or web address]) OP Mobility Evaluation Bed Mobility Supine to and from Sit sit to supine- mod assist ( requires assist for BLEs) supine to sit- indep. OP Gait Assessment Gait Gait Assistance Required: Standby Assistance Assistive Devices Assistive Device Gait Belt Gait Deviations General Gait Pattern Decreased Stride Length Decreased Feet Clearance Festinating Flexed Trunk Factors Limiting Gait Function Factors Limiting Gait Function Decreased Activity Tolerance Incoordination Poor Balance Poor Safety Awareness Stair Climbing Evaluation Comments Stair Climbing Comments occasional foot hitting higher step when descending with step-through and R rail PT-OP-Q Treatments Start: 11/19/18 15:32 Freq: Status: Active Protocol: Document 12/23/18 15:15 RCC (Rec: 12/25/18 11:18 RCC [email or web address]) Gym Equipment Shuttle Recovery Other- 1 Details DL jumps Resistance 37 lbs Shuttle Recovery Platform Stable Unilateral Squats Resistance 62 lbs Shuttle Recovery Platform Stable Bilateral Squats Resistance 100 lbs Shuttle Recovery Platform Stable Shuttle Balance Red Details DL normal stance A/P and lateral, balloon volley A/P with Mod A x1 Reps/Duration 15 min Therapeutic Exercises Supine Exercises BLE lift Supine Exercise Name LE SL lift Side bilateral Reps/Minutes x10 Gait Training Gait Activity arm swing Description level surface gait training with B dowel to assist with arm swing Treatment Focus arm swing, large steps, upright posture Comments PT behind pt assisting with alternating arm swing Neuro Re-Education Treatment Other Activities bocci ball Reps/Duration 5 min Comments throwing various small medicine balls at target with step & throw (arm swing) technique- CGA x1 PT-OP-T Assessment and Plan Start: 11/19/18 15:32 Freq: Status: Active Protocol: Document 12/23/18 15:15 RCC (Rec: 12/25/18 11:18 RCC [email or web address]) Physical Therapy Assessment Assessment Summary Assessment Heather responded well with assistance using dowels to perform alternating arm swing with gait training today, VC for increased step length. He continues to be a good participant in physical therapy, but requires continuous cuing. Physical Therapy Plan Next Visit Focus/Plan Next Note Type Treatment Note Next Visit Plan floor recovery, balance and gait for fall prevention
--- NOTE | 2018-12-30 15:15 | PT.OTN ---
Current Diagnoses Dementia in other diseases classified elsewhere without behavioral disturbance (12/30/18) Dementia with Lewy bodies (12/30/18) Physical Therapy Treatment Note PT-OP-A Visit Information Start: 11/19/18 15:32 Freq: Status: Active Protocol: Document 12/30/18 15:15 DLM (Rec: 12/30/18 18:21 DLM [email or web address]) Out-Patient Physical Therapy Visit Information Visit Information Visit Type Treatment Note Visit Start Time 15:15 Visit Stop Time 16:30 Total Visit Minutes 45 Visit Number 7 Number of [employer] WELLNESS COORDINATOR Visits 0 Evaluation Information Evaluation Date 11/19/18 Precautions Precautions memory impairment, fall risk- use gait belt PT-OP-B Current Condition Start: 11/19/18 15:32 Freq: Status: Active Protocol: Document 11/19/18 11:15 RCC (Rec: 11/19/18 15:59 RCC [email or web address]) Current Condition History of Current Condition Onset Date balance worsening since returning from [place] 1-2 mos ago Current Complaints poor balance, falls, impaired gait tolerance History of Current Condition Pt is an 83 y/o male presenting to physical therapy with his , with speaking on behalf of the pt. She notes that pt had issues with his Parkinson's medication over the winter time while staying in [place], which caused him to fall and be hospitalized and do rehabilitation until his medication could be sorted out. This is now resolved. Pt 's reports that Heather was walking with her 30-45 min per day outdoors on level surfaces while in [place], but since coming home he has not tolerated walking much except short distances only up to ~10 min. Pt has had 2 falls in the past 6 months, most recent this past week when trying to walk in the back yard. No acute injury. Pt did have some R knee discomfort which now appears to be resolved as well. states that he requires physical assistance to get laying down into bed either flat or with a wedge, but can get supine to sit independently. They are remodeling their home so Heather can live on the main level, but still needs to manage stairs to get in/out of home. She would like to get a transport chair for Heather, as she feels a w/c is too heavy and would not fit into the bathroom of their home. Pt 's wants to improve his bed mobility, standing balance , and gait. He has a new diagnosis of Lewy body dementia without behavioral disturbance. PT-OP-C Subjective Start: 11/19/18 15:32 Freq: Status: Active Protocol: Document 12/30/18 15:15 DLM (Rec: 12/30/18 18:21 DLM [email or web address]) OP-PT Subjective Patient Comments Patient Comments His reports they decided to get rid of their treadmill, giving it to their daughter. They walk outside for exercise . They are remodeling the house to make it more accessible. PT-OP-E Functional Tests Start: 11/19/18 15:32 Freq: Status: Active Protocol: Document 12/17/18 14:30 RCC (Rec: 12/18/18 15:16 RCC [email or web address]) Functional Tests Timed Up and Go (TUG) Score 21.24 Comments avg of 3 trials PT-OP-G Mobility & Gait Start: 11/19/18 15:32 Freq: Status: Active Protocol: Document 11/19/18 11:15 RCC (Rec: 11/19/18 16:51 RCC [email or web address]) OP Mobility Evaluation Bed Mobility Supine to and from Sit sit to supine- mod assist ( requires assist for BLEs) supine to sit- indep. OP Gait Assessment Gait Gait Assistance Required: Standby Assistance Assistive Devices Assistive Device Gait Belt Gait Deviations General Gait Pattern Decreased Stride Length Decreased Feet Clearance Festinating Flexed Trunk Factors Limiting Gait Function Factors Limiting Gait Function Decreased Activity Tolerance Incoordination Poor Balance Poor Safety Awareness Stair Climbing Evaluation Comments Stair Climbing Comments occasional foot hitting higher step when descending with step-through and R rail PT-OP-Q Treatments Start: 11/19/18 15:32 Freq: Status: Active Protocol: Document 12/30/18 15:15 DLM (Rec: 12/30/18 18:21 DLM [email or web address]) Cardio Equipment Recumbent Stepper (Sci-Fit) Duration (Minutes) 7 Resistance 1.5 Seat Position 11 Other use UE and LE Gym Equipment Shuttle Recovery Unilateral Squats Resistance 62 lbs Shuttle Recovery Platform Stable Bilateral Squats Resistance 100 lbs Shuttle Recovery Platform Stable Neuro Re-Education Treatment Balance Activities 8 Details Tandem gait Surface firm Equipment // bars Reps/Duration 4 laps Comments UE support needed 2 Details Placing foot on/off step Surface firm Equipment UE support, // bars Reps/Duration 2 x 10 reps each Comments forward, individual and then alternating 1 Details Standing in narrow base of support Surface firm Equipment // bars Reps/Duration x 3 reps Coordination Activities 1 Details Cross-overs Equipment // bars Speed slow Reps/Duration 4 laps Comments he needs verbal and tactile cues to complete this PT-OP-T Assessment and Plan Start: 11/19/18 15:32 Freq: Status: Active Protocol: Document 12/30/18 15:15 DLM (Rec: 12/30/18 18:21 DLM [email or web address]) Physical Therapy Assessment Goals recreational activities Impairment pt only able to tolerate 10 min walking level surfaces Short Term Goal (STG) pt will be able to walk 20 min , 5 days per week outdoors on level surfaces with SBA STG Duration 6 weeks Care Home Goal (LTG) pt will be able to walk 30 min , 5 days per week outdoors on level surfaces with SBA LTG Duration 12 weeks Falls Impairment 2 falls in past 6 months Cartridge Feeder Goal (LTG) Pt will remain without fall for 6 weeks or greater prior to d/c from physical therapy. LTG Duration 12 weeks Dynamic Gait Index Impairment 10/24 on Dynamic Gait Index Short Term Goal (STG) 14/24 on Dynamic Gait Index STG Duration 6 weeks Care Home Goal (LTG) 17/24 or greater on Dynamic Gait Index LTG Duration 12 weeks Progress Towards Goals Progress Towards Goals Slow Progress due to Activity Tolerance Assessment Summary Assessment He tolerated treatment well today with fatigue at end of visit. Noted increased stiffness and decreased coordination this visit. His Sinemet was due at 3:30 today which may have affected this visit. His is present and supportive in therapy. He needs postural cuing during standing activities. He shows good effort with all activities. Physical Therapy Plan Frequency and Duration Frequency of Treatment 2x/Week Duration of Treatment 12 weeks Plan of Care Start Date 11/19/18 Plan of Care End Date 02/11/19 Therapeutic Interventions Therapeutic Interventions Aquatic Therapy Balance Training Gait Training Home Exercise Program Manual Therapy Neuromuscular Re-education Patient/Caregiver Education Self-Care/Home Management Taping Therapeutic Activities Therapeutic Exercises Next Visit Focus/Plan Next Note Type Treatment Note Next Visit Plan floor recovery, balance and gait for fall prevention
--- NOTE | 2019-01-03 16:50 | PT.OTN ---
Current Diagnoses Dementia in other diseases classified elsewhere without behavioral disturbance (01/03/19) Dementia with Lewy bodies (01/03/19) Physical Therapy Treatment Note PT-OP-A Visit Information Start: 11/19/18 15:32 Freq: Status: Active Protocol: Document 01/03/19 10:15 AMB (Rec: 01/03/19 10:27 AMB [id number]) Out-Patient Physical Therapy Visit Information Visit Information Visit Type Treatment Note Visit Start Time 10:15 Visit Stop Time 11:00 Total Visit Minutes 45 Visit Number 8 Number of DOMESTIC VIOLENCE ADVOCATE Visits 0 PT-OP-B Current Condition Start: 11/19/18 15:32 Freq: Status: Active Protocol: Document 11/19/18 11:15 RCC (Rec: 11/19/18 15:59 RCC [email or web address]) Current Condition History of Current Condition Onset Date balance worsening since returning from [place] 1-2 mos ago Current Complaints poor balance, falls, impaired gait tolerance History of Current Condition Pt is an 83 y/o male presenting to physical therapy with his , with speaking on behalf of the pt. She notes that pt had issues with his Parkinson's medication over the winter time while staying in [place], which caused him to fall and be hospitalized and do rehabilitation until his medication could be sorted out. This is now resolved. Pt 's reports that Heather was walking with her 30-45 min per day outdoors on level surfaces while in [place], but since coming home he has not tolerated walking much except short distances only up to ~10 min. Pt has had 2 falls in the past 6 months, most recent this past week when trying to walk in the back yard. No acute injury. Pt did have some R knee discomfort which now appears to be resolved as well. states that he requires physical assistance to get laying down into bed either flat or with a wedge, but can get supine to sit independently. They are remodeling their home so Heather can live on the main level, but still needs to manage stairs to get in/out of home. She would like to get a transport chair for Heather, as she feels a w/c is too heavy and would not fit into the bathroom of their home. Pt 's wants to improve his bed mobility, standing balance , and gait. He has a new diagnosis of Lewy body dementia without behavioral disturbance. PT-OP-C Subjective Start: 11/19/18 15:32 Freq: Status: Active Protocol: Document 01/03/19 10:15 AMB (Rec: 01/03/19 10:27 AMB [id number]) OP-PT Subjective Patient Comments Patient Comments Heather's states that keeping Heather walking and able to do stairs is her biggest priority right now. PT-OP-E Functional Tests Start: 11/19/18 15:32 Freq: Status: Active Protocol: Document 12/17/18 14:30 RCC (Rec: 12/18/18 15:16 RCC [email or web address]) Functional Tests Timed Up and Go (TUG) Score 21.24 Comments avg of 3 trials PT-OP-G Mobility & Gait Start: 11/19/18 15:32 Freq: Status: Active Protocol: Document 11/19/18 11:15 RCC (Rec: 11/19/18 16:51 RCC [email or web address]) OP Mobility Evaluation Bed Mobility Supine to and from Sit sit to supine- mod assist ( requires assist for BLEs) supine to sit- indep. OP Gait Assessment Gait Gait Assistance Required: Standby Assistance Assistive Devices Assistive Device Gait Belt Gait Deviations General Gait Pattern Decreased Stride Length Decreased Feet Clearance Festinating Flexed Trunk Factors Limiting Gait Function Factors Limiting Gait Function Decreased Activity Tolerance Incoordination Poor Balance Poor Safety Awareness Stair Climbing Evaluation Comments Stair Climbing Comments occasional foot hitting higher step when descending with step-through and R rail PT-OP-Q Treatments Start: 11/19/18 15:32 Freq: Status: Active Protocol: Document 01/03/19 10:15 AMB (Rec: 01/03/19 16:47 AMB [email or web address]) Therapeutic Activity Therapeutic Activity 3 Name sit to stand Reps/Minutes 10 Comments vc to lean forward Gait Training Gait Activity 2 Description stairs Level of Assistance CGA Distance/Duration 4 steps x 10 Comments vc to fully clear stair especially on descent 1 Description hurdles Level of Assistance CGA Distance/Duration 10'x6 Neuro Re-Education Treatment Balance Activities 9 Details forward/ backward walking Comments CGA firm surface, no resistance 2 Details Placing foot on/off step Surface firm Equipment UE support, // bars Reps/Duration 2 x 10 reps each Comments forward, individual and then alternating 1 Details Standing in narrow base of support Surface firm Equipment // bars Reps/Duration x 3 reps PT-OP-T Assessment and Plan Start: 11/19/18 15:32 Freq: Status: Active Protocol: Document 01/03/19 10:15 AMB (Rec: 01/03/19 16:47 AMB [email or web address]) Physical Therapy Assessment Assessment Summary Assessment Pt was a bit more fatigued today, states less able in the morning. Needed cues for safety with stairs. Physical Therapy Plan Next Visit Focus/Plan Next Note Type Treatment Note Next Visit Plan floor recovery, balance and gait for fall prevention
--- NOTE | 2019-01-06 17:22 | PT.OTN ---
Current Diagnoses Dementia in other diseases classified elsewhere without behavioral disturbance (01/06/19) Dementia with Lewy bodies (01/06/19) Physical Therapy Treatment Note PT-OP-A Visit Information Start: 11/19/18 15:32 Freq: Status: Active Protocol: Document 01/06/19 17:14 SA (Rec: 01/06/19 17:22 SA [email or web address]) Out-Patient Physical Therapy Visit Information Visit Information Visit Type Treatment Note Visit Start Time 15:15 Visit Stop Time 16:00 Total Visit Minutes 45 Visit Number 8 Number of PLUNGER SCOOP OPERATOR Visits 1 PT-OP-B Current Condition Start: 11/19/18 15:32 Freq: Status: Active Protocol: Document 11/19/18 11:15 RCC (Rec: 11/19/18 15:59 RCC [email or web address]) Current Condition History of Current Condition Onset Date balance worsening since returning from [place] 1-2 mos ago Current Complaints poor balance, falls, impaired gait tolerance History of Current Condition Pt is an 83 y/o male presenting to physical therapy with his , with speaking on behalf of the pt. She notes that pt had issues with his Parkinson's medication over the winter time while staying in [place], which caused him to fall and be hospitalized and do rehabilitation until his medication could be sorted out. This is now resolved. Pt 's reports that Heather was walking with her 30-45 min per day outdoors on level surfaces while in [place], but since coming home he has not tolerated walking much except short distances only up to ~10 min. Pt has had 2 falls in the past 6 months, most recent this past week when trying to walk in the back yard. No acute injury. Pt did have some R knee discomfort which now appears to be resolved as well. states that he requires physical assistance to get laying down into bed either flat or with a wedge, but can get supine to sit independently. They are remodeling their home so Heather can live on the main level, but still needs to manage stairs to get in/out of home. She would like to get a transport chair for Heather, as she feels a w/c is too heavy and would not fit into the bathroom of their home. Pt 's wants to improve his bed mobility, standing balance , and gait. He has a new diagnosis of Lewy body dementia without behavioral disturbance. PT-OP-C Subjective Start: 11/19/18 15:32 Freq: Status: Active Protocol: Document 01/06/19 17:14 SA (Rec: 01/06/19 17:22 SA [email or web address]) OP-PT Subjective Patient Comments Patient Comments Pt reports feeling about the same is present for treatment. PT-OP-E Functional Tests Start: 11/19/18 15:32 Freq: Status: Active Protocol: Document 12/17/18 14:30 RCC (Rec: 12/18/18 15:16 RCC [email or web address]) Functional Tests Timed Up and Go (TUG) Score 21.24 Comments avg of 3 trials PT-OP-G Mobility & Gait Start: 11/19/18 15:32 Freq: Status: Active Protocol: Document 11/19/18 11:15 RCC (Rec: 11/19/18 16:51 RCC [email or web address]) OP Mobility Evaluation Bed Mobility Supine to and from Sit sit to supine- mod assist ( requires assist for BLEs) supine to sit- indep. OP Gait Assessment Gait Gait Assistance Required: Standby Assistance Assistive Devices Assistive Device Gait Belt Gait Deviations General Gait Pattern Decreased Stride Length Decreased Feet Clearance Festinating Flexed Trunk Factors Limiting Gait Function Factors Limiting Gait Function Decreased Activity Tolerance Incoordination Poor Balance Poor Safety Awareness Stair Climbing Evaluation Comments Stair Climbing Comments occasional foot hitting higher step when descending with step-through and R rail PT-OP-Q Treatments Start: 11/19/18 15:32 Freq: Status: Active Protocol: Document 01/06/19 17:14 SA (Rec: 01/06/19 17:22 SA [email or web address]) Cardio Equipment Recumbent Stepper (Sci-Fit) Duration (Minutes) 7 Resistance 1.5 Seat Position 11 Other use UE and LE Gym Equipment Shuttle Recovery Unilateral Squats Resistance 62 lbs Shuttle Recovery Platform Stable Bilateral Squats Resistance 100 lbs Shuttle Recovery Platform Stable Therapeutic Exercises Sitting Exercises 2 Sitting Exercise Name Sit-stand Reps/Minutes x 10 reps x 2 sets Comments without UE support, SBA for safety Gait Training Gait Activity arm swing Description level surface gait training with B dowel to assist with arm swing Treatment Focus arm swing, large steps, upright posture Comments PT behind pt assisting with alternating arm swing 2 Description stairs Device Used // bars Distance/Duration 3 reps Comments vc to fully clear stair especially on descent 1 Description hurdles Device Used 4WW Distance/Duration 10'x6 Neuro Re-Education Treatment Balance Activities 2 Details Placing foot on/off step Surface firm Equipment UE support, // bars Reps/Duration 2 x 10 reps each 1 Details Standing in narrow base of support Surface firm Equipment // bars Reps/Duration x 3 reps Coordination Activities 1 Details Cross-overs Speed slow Reps/Duration 4 laps Comments he needs verbal and tactile cues to complete this PT-OP-T Assessment and Plan Start: 11/19/18 15:32 Freq: Status: Active Protocol: Document 01/06/19 17:14 SA (Rec: 01/06/19 17:22 SA [email or web address]) Physical Therapy Assessment Assessment Summary Assessment Clear, concise cues needed for stair training, gait and sit to stands. Repetitions rather than new learning. Physical Therapy Plan Next Visit Focus/Plan Next Note Type Treatment Note Next Visit Plan floor recovery, balance and gait for fall prevention
--- NOTE | 2019-01-11 11:39 | PT.OTN ---
Current Diagnoses Dementia in other diseases classified elsewhere without behavioral disturbance (01/10/19) Dementia with Lewy bodies (01/10/19) Physical Therapy Treatment Note PT-OP-A Visit Information Start: 11/19/18 15:32 Freq: Status: Active Protocol: Document 01/10/19 13:45 AMB (Rec: 01/11/19 11:39 AMB [email or web address]) Out-Patient Physical Therapy Visit Information Visit Information Visit Type Treatment Note Visit Start Time 15:15 Visit Stop Time 16:00 Total Visit Minutes 45 Visit Number 9 Number of ASSOCIATE PROGRAMMER Visits 0 PT-OP-B Current Condition Start: 11/19/18 15:32 Freq: Status: Active Protocol: Document 11/19/18 11:15 RCC (Rec: 11/19/18 15:59 RCC [email or web address]) Current Condition History of Current Condition Onset Date balance worsening since returning from [place] 1-2 mos ago Current Complaints poor balance, falls, impaired gait tolerance History of Current Condition Pt is an 83 y/o male presenting to physical therapy with his , with speaking on behalf of the pt. She notes that pt had issues with his Parkinson's medication over the winter time while staying in [place], which caused him to fall and be hospitalized and do rehabilitation until his medication could be sorted out. This is now resolved. Pt 's reports that Heather was walking with her 30-45 min per day outdoors on level surfaces while in [place], but since coming home he has not tolerated walking much except short distances only up to ~10 min. Pt has had 2 falls in the past 6 months, most recent this past week when trying to walk in the back yard. No acute injury. Pt did have some R knee discomfort which now appears to be resolved as well. states that he requires physical assistance to get laying down into bed either flat or with a wedge, but can get supine to sit independently. They are remodeling their home so Heather can live on the main level, but still needs to manage stairs to get in/out of home. She would like to get a transport chair for Heather, as she feels a w/c is too heavy and would not fit into the bathroom of their home. Pt 's wants to improve his bed mobility, standing balance , and gait. He has a new diagnosis of Lewy body dementia without behavioral disturbance. PT-OP-C Subjective Start: 11/19/18 15:32 Freq: Status: Active Protocol: Document 01/10/19 13:45 AMB (Rec: 01/11/19 11:39 AMB [email or web address]) OP-PT Subjective Patient Comments Patient Comments Heather's reports they are almost done with renovations PT-OP-E Functional Tests Start: 11/19/18 15:32 Freq: Status: Active Protocol: Document 12/17/18 14:30 RCC (Rec: 12/18/18 15:16 RCC [email or web address]) Functional Tests Timed Up and Go (TUG) Score 21.24 Comments avg of 3 trials PT-OP-G Mobility & Gait Start: 11/19/18 15:32 Freq: Status: Active Protocol: Document 11/19/18 11:15 RCC (Rec: 11/19/18 16:51 RCC [email or web address]) OP Mobility Evaluation Bed Mobility Supine to and from Sit sit to supine- mod assist ( requires assist for BLEs) supine to sit- indep. OP Gait Assessment Gait Gait Assistance Required: Standby Assistance Assistive Devices Assistive Device Gait Belt Gait Deviations General Gait Pattern Decreased Stride Length Decreased Feet Clearance Festinating Flexed Trunk Factors Limiting Gait Function Factors Limiting Gait Function Decreased Activity Tolerance Incoordination Poor Balance Poor Safety Awareness Stair Climbing Evaluation Comments Stair Climbing Comments occasional foot hitting higher step when descending with step-through and R rail PT-OP-Q Treatments Start: 11/19/18 15:32 Freq: Status: Active Protocol: Document 01/10/19 13:45 AMB (Rec: 01/11/19 11:39 AMB [email or web address]) Cardio Equipment Recumbent Stepper (Sci-Fit) Duration (Minutes) 7 Resistance 1.5 Seat Position 11 Other use UE and LE Therapeutic Activity Therapeutic Activity 3 Name sit to stand Reps/Minutes Comments vc to lean forward, position feet. also practiced leaning forward to scoot chair forward like at dinner table. PT-OP-T Assessment and Plan Start: 11/19/18 15:32 Freq: Status: Active Protocol: Document 01/10/19 13:45 AMB (Rec: 01/11/19 11:39 AMB [email or web address]) Physical Therapy Assessment Assessment Summary Assessment wanted to work on sit to stand, biggest take away today was that he needs to be cued to get his feet under him to be successful. Physical Therapy Plan Next Visit Focus/Plan Next Note Type Progress Note Next Visit Plan floor recovery
--- NOTE | 2019-01-17 16:05 | PT.OTN ---
Current Diagnoses Dementia in other diseases classified elsewhere without behavioral disturbance (01/17/19) Dementia with Lewy bodies (01/17/19) Physical Therapy Treatment Note PT-OP-A Visit Information Start: 11/19/18 15:32 Freq: Status: Active Protocol: Document 01/17/19 14:45 AMB (Rec: 01/17/19 16:05 AMB [email or web address]) Out-Patient Physical Therapy Visit Information Visit Information Visit Type Progress Note Visit Start Time 14:45 Visit Stop Time 15:30 Total Visit Minutes 45 Visit Number 10 Number of CHEMICAL MIXER Visits 0 PT-OP-B Current Condition Start: 11/19/18 15:32 Freq: Status: Active Protocol: Document 11/19/18 11:15 RCC (Rec: 11/19/18 15:59 RCC [email or web address]) Current Condition History of Current Condition Onset Date balance worsening since returning from [place] 1-2 mos ago Current Complaints poor balance, falls, impaired gait tolerance History of Current Condition Pt is an 83 y/o male presenting to physical therapy with his , with speaking on behalf of the pt. She notes that pt had issues with his Parkinson's medication over the winter time while staying in [place], which caused him to fall and be hospitalized and do rehabilitation until his medication could be sorted out. This is now resolved. Pt 's reports that Heather was walking with her 30-45 min per day outdoors on level surfaces while in [place], but since coming home he has not tolerated walking much except short distances only up to ~10 min. Pt has had 2 falls in the past 6 months, most recent this past week when trying to walk in the back yard. No acute injury. Pt did have some R knee discomfort which now appears to be resolved as well. states that he requires physical assistance to get laying down into bed either flat or with a wedge, but can get supine to sit independently. They are remodeling their home so Heather can live on the main level, but still needs to manage stairs to get in/out of home. She would like to get a transport chair for Heather, as she feels a w/c is too heavy and would not fit into the bathroom of their home. Pt 's wants to improve his bed mobility, standing balance , and gait. He has a new diagnosis of Lewy body dementia without behavioral disturbance. PT-OP-C Subjective Start: 11/19/18 15:32 Freq: Status: Active Protocol: Document 01/17/19 14:45 AMB (Rec: 01/17/19 16:05 AMB [email or web address]) OP-PT Subjective Patient Comments Patient Comments Heather's comes in with a picture of a forearm walker, stating that she is interested in if this would ,make him walk more upright. His neurologist wants him to walk with a walker per her report, but she tends to walk with him with handhold support. PT-OP-E Functional Tests Start: 11/19/18 15:32 Freq: Status: Active Protocol: Document 12/17/18 14:30 RCC (Rec: 12/18/18 15:16 RCC [email or web address]) Functional Tests Timed Up and Go (TUG) Score 21.24 Comments avg of 3 trials PT-OP-G Mobility & Gait Start: 11/19/18 15:32 Freq: Status: Active Protocol: Document 11/19/18 11:15 RCC (Rec: 11/19/18 16:51 RCC [email or web address]) OP Mobility Evaluation Bed Mobility Supine to and from Sit sit to supine- mod assist ( requires assist for BLEs) supine to sit- indep. OP Gait Assessment Gait Gait Assistance Required: Standby Assistance Assistive Devices Assistive Device Gait Belt Gait Deviations General Gait Pattern Decreased Stride Length Decreased Feet Clearance Festinating Flexed Trunk Factors Limiting Gait Function Factors Limiting Gait Function Decreased Activity Tolerance Incoordination Poor Balance Poor Safety Awareness Stair Climbing Evaluation Comments Stair Climbing Comments occasional foot hitting higher step when descending with step-through and R rail PT-OP-Q Treatments Start: 11/19/18 15:32 Freq: Status: Active Protocol: Document 01/17/19 14:45 AMB (Rec: 01/17/19 16:05 AMB [email or web address]) Cardio Equipment Recumbent Stepper (Sci-Fit) Duration (Minutes) 7 Resistance 1.5 Seat Position 11 Other use UE and LE Therapeutic Exercises Sitting Exercises 2 Sitting Exercise Name Sit-stand Reps/Minutes x 10 reps x 2 sets Comments without UE support, SBA for safety Gait Training Gait Activity 3 Description forearm walker per 's request Comments Pt put a lot of weightbearing through arms and it was quite difficult for him to walk and had poor posture. Neuro Re-Education Treatment Balance Activities 9 Details forward, backward, side stepping Comments CGA firm surface, no resistance 8 Details slow march for single leg stance Comments hand hold assist 1 Details Standing in narrow base of support Surface firm Equipment // bars Reps/Duration x 3 reps PT-OP-T Assessment and Plan Start: 11/19/18 15:32 Freq: Status: Active Protocol: Document 01/17/19 14:45 AMB (Rec: 01/17/19 16:05 AMB [email or web address]) Physical Therapy Assessment Goals recreational activities Impairment pt only able to tolerate 10 min walking level surfaces Short Term Goal (STG) pt will be able to walk 20 min , 5 days per week outdoors on level surfaces with SBA STG Duration PROGRESS MADE Snf Goal (LTG) pt will be able to walk 30 min , 5 days per week outdoors on level surfaces with SBA LTG Duration 12 weeks Falls Impairment 2 falls in past 6 months Purification Operator Helper Goal (LTG) Pt will remain without fall for 6 weeks or greater prior to d/c from physical therapy. 7/8: no falls yet LTG Duration 12 weeks Dynamic Gait Index Impairment 1024 on Dynamic Gait Index Short Term Goal (STG) 1424 on Dynamic Gait Index 7/ 8: not assessed today STG Duration 6 weeks Purification Operator Helper Goal (LTG) 17/24 or greater on Dynamic Gait Index LTG Duration 12 weeks Assessment Summary Assessment Heather did not do very well with the walker trial today, would keep with 4WW vs handhold support at this time. Could consider U walker for in home only given its weight. Physical Therapy Plan Next Visit Focus/Plan Next Note Type Progress Note Next Visit Plan floor recovery, balance and gait for fall prevention
--- NOTE | 2019-01-24 16:03 | PT.OTN ---
Current Diagnoses Dementia in other diseases classified elsewhere without behavioral disturbance (01/24/19) Dementia with Lewy bodies (01/24/19) Physical Therapy Treatment Note PT-OP-A Visit Information Start: 11/19/18 15:32 Freq: Status: Active Protocol: Document 01/24/19 13:45 AMB (Rec: 01/24/19 16:03 AMB [email or web address]) Out-Patient Physical Therapy Visit Information Visit Information Visit Type Treatment Note Visit Start Time 13:45 Visit Stop Time 14:30 Total Visit Minutes 45 Visit Number 11 PT-OP-B Current Condition Start: 11/19/18 15:32 Freq: Status: Active Protocol: Document 11/19/18 11:15 RCC (Rec: 11/19/18 15:59 RCC [email or web address]) Current Condition History of Current Condition Onset Date balance worsening since returning from [place] 1-2 mos ago Current Complaints poor balance, falls, impaired gait tolerance History of Current Condition Pt is an 83 y/o male presenting to physical therapy with his , with speaking on behalf of the pt. She notes that pt had issues with his Parkinson's medication over the winter time while staying in [place], which caused him to fall and be hospitalized and do rehabilitation until his medication could be sorted out. This is now resolved. Pt 's reports that Heather was walking with her 30-45 min per day outdoors on level surfaces while in [place], but since coming home he has not tolerated walking much except short distances only up to ~10 min. Pt has had 2 falls in the past 6 months, most recent this past week when trying to walk in the back yard. No acute injury. Pt did have some R knee discomfort which now appears to be resolved as well. states that he requires physical assistance to get laying down into bed either flat or with a wedge, but can get supine to sit independently. They are remodeling their home so Heather can live on the main level, but still needs to manage stairs to get in/out of home. She would like to get a transport chair for Heather, as she feels a w/c is too heavy and would not fit into the bathroom of their home. Pt 's wants to improve his bed mobility, standing balance , and gait. He has a new diagnosis of Lewy body dementia without behavioral disturbance. PT-OP-C Subjective Start: 11/19/18 15:32 Freq: Status: Active Protocol: Document 01/24/19 13:45 AMB (Rec: 01/24/19 16:03 AMB [email or web address]) OP-PT Subjective Patient Comments Patient Comments Heather was very tired this weekend per his 's report. They are seeing the neurologist later in the week. PT-OP-E Functional Tests Start: 11/19/18 15:32 Freq: Status: Active Protocol: Document 12/17/18 14:30 RCC (Rec: 12/18/18 15:16 RCC [email or web address]) Functional Tests Timed Up and Go (TUG) Score 21.24 Comments avg of 3 trials PT-OP-G Mobility & Gait Start: 11/19/18 15:32 Freq: Status: Active Protocol: Document 11/19/18 11:15 RCC (Rec: 11/19/18 16:51 RCC [email or web address]) OP Mobility Evaluation Bed Mobility Supine to and from Sit sit to supine- mod assist ( requires assist for BLEs) supine to sit- indep. OP Gait Assessment Gait Gait Assistance Required: Standby Assistance Assistive Devices Assistive Device Gait Belt Gait Deviations General Gait Pattern Decreased Stride Length Decreased Feet Clearance Festinating Flexed Trunk Factors Limiting Gait Function Factors Limiting Gait Function Decreased Activity Tolerance Incoordination Poor Balance Poor Safety Awareness Stair Climbing Evaluation Comments Stair Climbing Comments occasional foot hitting higher step when descending with step-through and R rail PT-OP-Q Treatments Start: 11/19/18 15:32 Freq: Status: Active Protocol: Document 01/24/19 13:45 AMB (Rec: 01/24/19 16:03 AMB [email or web address]) Cardio Equipment Recumbent Elliptical (Biodex) Duration (Minutes) 5 Resistance 4 Therapeutic Exercises Other Exercises 1 Other Exercise Name quadruped to kneel Comments difficult with L knee pain Therapeutic Activity Therapeutic Activity 3 Name sit to stand Reps/Minutes 15 Comments vc to lean forward, position feet. also practiced leaning forward to scoot chair forward like at dinner table. 2 Name bed mobility Reps/Minutes supine<>sit Comments easier on firm surface PT-OP-T Assessment and Plan Start: 11/19/18 15:32 Freq: Status: Active Protocol: Document 01/24/19 13:45 AMB (Rec: 01/24/19 16:03 AMB [email or web address]) Physical Therapy Assessment Assessment Summary Assessment Heather's reports that he continues to have a difficult time with bed mobility in the morning when his medication has worn off. She reports that they have been able to manage floor recovery with environmental support. Physical Therapy Plan Next Visit Focus/Plan Next Note Type Treatment Note Next Visit Plan balance and gait, transfer training
--- NOTE | 2019-01-28 15:05 | PT.OTN ---
Current Diagnoses Dementia in other diseases classified elsewhere without behavioral disturbance (01/28/19) Dementia with Lewy bodies (01/28/19) Physical Therapy Treatment Note PT-OP-A Visit Information Start: 11/19/18 15:32 Freq: Status: Active Protocol: Document 01/28/19 10:30 AMB (Rec: 01/28/19 15:05 AMB [email or web address]) Out-Patient Physical Therapy Visit Information Visit Information Visit Type Treatment Note Visit Start Time 10:30 Visit Stop Time 11:15 Total Visit Minutes 45 Visit Number 12 PT-OP-B Current Condition Start: 11/19/18 15:32 Freq: Status: Active Protocol: Document 11/19/18 11:15 RCC (Rec: 11/19/18 15:59 RCC [email or web address]) Current Condition History of Current Condition Onset Date balance worsening since returning from [place] 1-2 mos ago Current Complaints poor balance, falls, impaired gait tolerance History of Current Condition Pt is an 83 y/o male presenting to physical therapy with his , with speaking on behalf of the pt. She notes that pt had issues with his Parkinson's medication over the winter time while staying in [place], which caused him to fall and be hospitalized and do rehabilitation until his medication could be sorted out. This is now resolved. Pt 's reports that Heather was walking with her 30-45 min per day outdoors on level surfaces while in [place], but since coming home he has not tolerated walking much except short distances only up to ~10 min. Pt has had 2 falls in the past 6 months, most recent this past week when trying to walk in the back yard. No acute injury. Pt did have some R knee discomfort which now appears to be resolved as well. states that he requires physical assistance to get laying down into bed either flat or with a wedge, but can get supine to sit independently. They are remodeling their home so Heather can live on the main level, but still needs to manage stairs to get in/out of home. She would like to get a transport chair for Heather, as she feels a w/c is too heavy and would not fit into the bathroom of their home. Pt 's wants to improve his bed mobility, standing balance , and gait. He has a new diagnosis of Lewy body dementia without behavioral disturbance. PT-OP-C Subjective Start: 11/19/18 15:32 Freq: Status: Active Protocol: Document 01/28/19 10:30 AMB (Rec: 01/28/19 15:05 AMB [email or web address]) OP-PT Subjective Patient Comments Patient Comments Heather and his went to his neurologist yesterday and got a new medication for memory but have not started it yet. PT-OP-E Functional Tests Start: 11/19/18 15:32 Freq: Status: Active Protocol: Document 12/17/18 14:30 RCC (Rec: 12/18/18 15:16 RCC [email or web address]) Functional Tests Timed Up and Go (TUG) Score 21.24 Comments avg of 3 trials PT-OP-G Mobility & Gait Start: 11/19/18 15:32 Freq: Status: Active Protocol: Document 11/19/18 11:15 RCC (Rec: 11/19/18 16:51 RCC [email or web address]) OP Mobility Evaluation Bed Mobility Supine to and from Sit sit to supine- mod assist ( requires assist for BLEs) supine to sit- indep. OP Gait Assessment Gait Gait Assistance Required: Standby Assistance Assistive Devices Assistive Device Gait Belt Gait Deviations General Gait Pattern Decreased Stride Length Decreased Feet Clearance Festinating Flexed Trunk Factors Limiting Gait Function Factors Limiting Gait Function Decreased Activity Tolerance Incoordination Poor Balance Poor Safety Awareness Stair Climbing Evaluation Comments Stair Climbing Comments occasional foot hitting higher step when descending with step-through and R rail PT-OP-Q Treatments Start: 11/19/18 15:32 Freq: Status: Active Protocol: Document 01/28/19 10:30 AMB (Rec: 01/28/19 15:05 AMB [email or web address]) Therapeutic Exercises Standing Exercises 6 Standing Exercise Name tricep extension Resistance #3 Reps/Minutes 2x10 Neuro Re-Education Treatment Balance Activities 9 Details forward, backward, side stepping Comments CGA firm surface, no resistance 8 Details slow march for single leg stance Comments hand hold assist 7 Details weightshifting Comments modified tandem with arm swing PT-OP-T Assessment and Plan Start: 11/19/18 15:32 Freq: Status: Active Protocol: Document 01/28/19 10:30 AMB (Rec: 01/28/19 15:05 AMB [email or web address]) Physical Therapy Assessment Assessment Summary Assessment Heather's wants an exercise program that they can do together so reinforced exercises from previous PT that she is already familiar with. He requires extensive verbal and physical cues for this. Physical Therapy Plan Next Visit Focus/Plan Next Note Type Treatment Note Next Visit Plan balance and gait, transfer training
--- NOTE | 2019-01-31 12:00 | PT.OTN ---
Current Diagnoses Dementia in other diseases classified elsewhere without behavioral disturbance (01/31/19) Dementia with Lewy bodies (01/31/19) Physical Therapy Treatment Note PT-OP-A Visit Information Start: 11/19/18 15:32 Freq: Status: Active Protocol: Document 01/31/19 10:30 AMB (Rec: 01/31/19 10:42 AMB [id number]) Out-Patient Physical Therapy Visit Information Visit Information Visit Type Treatment Note Visit Start Time 10:30 Visit Stop Time 11:15 Total Visit Minutes 45 Visit Number 13 PT-OP-B Current Condition Start: 11/19/18 15:32 Freq: Status: Active Protocol: Document 11/19/18 11:15 RCC (Rec: 11/19/18 15:59 RCC [email or web address]) Current Condition History of Current Condition Onset Date balance worsening since returning from [place] 1-2 mos ago Current Complaints poor balance, falls, impaired gait tolerance History of Current Condition Pt is an 83 y/o male presenting to physical therapy with his , with speaking on behalf of the pt. She notes that pt had issues with his Parkinson's medication over the winter time while staying in [place], which caused him to fall and be hospitalized and do rehabilitation until his medication could be sorted out. This is now resolved. Pt 's reports that Heather was walking with her 30-45 min per day outdoors on level surfaces while in [place], but since coming home he has not tolerated walking much except short distances only up to ~10 min. Pt has had 2 falls in the past 6 months, most recent this past week when trying to walk in the back yard. No acute injury. Pt did have some R knee discomfort which now appears to be resolved as well. states that he requires physical assistance to get laying down into bed either flat or with a wedge, but can get supine to sit independently. They are remodeling their home so Heather can live on the main level, but still needs to manage stairs to get in/out of home. She would like to get a transport chair for Heather, as she feels a w/c is too heavy and would not fit into the bathroom of their home. Pt 's wants to improve his bed mobility, standing balance , and gait. He has a new diagnosis of Lewy body dementia without behavioral disturbance. PT-OP-C Subjective Start: 11/19/18 15:32 Freq: Status: Active Protocol: Document 01/31/19 10:30 AMB (Rec: 01/31/19 10:42 AMB [id number]) OP-PT Subjective Patient Comments Patient Comments Heather did one bout of exercises this weekend, new memory drug is giving him an upset stomach per his . PT-OP-E Functional Tests Start: 11/19/18 15:32 Freq: Status: Active Protocol: Document 12/17/18 14:30 RCC (Rec: 12/18/18 15:16 RCC [email or web address]) Functional Tests Timed Up and Go (TUG) Score 21.24 Comments avg of 3 trials PT-OP-G Mobility & Gait Start: 11/19/18 15:32 Freq: Status: Active Protocol: Document 11/19/18 11:15 RCC (Rec: 11/19/18 16:51 RCC [email or web address]) OP Mobility Evaluation Bed Mobility Supine to and from Sit sit to supine- mod assist ( requires assist for BLEs) supine to sit- indep. OP Gait Assessment Gait Gait Assistance Required: Standby Assistance Assistive Devices Assistive Device Gait Belt Gait Deviations General Gait Pattern Decreased Stride Length Decreased Feet Clearance Festinating Flexed Trunk Factors Limiting Gait Function Factors Limiting Gait Function Decreased Activity Tolerance Incoordination Poor Balance Poor Safety Awareness Stair Climbing Evaluation Comments Stair Climbing Comments occasional foot hitting higher step when descending with step-through and R rail PT-OP-Q Treatments Start: 11/19/18 15:32 Freq: Status: Active Protocol: Document 01/31/19 10:30 AMB (Rec: 02/01/19 07:28 AMB [email or web address]) Cardio Equipment Recumbent Elliptical (Biodex) Duration (Minutes) 5 Resistance 4 Therapeutic Exercises Sitting Exercises 2 Sitting Exercise Name Sit-stand Reps/Minutes x 10 reps x 2 sets Comments without UE support, SBA for safety Neuro Re-Education Treatment Balance Activities 7 Details weightshifting Comments modified tandem with arm swing 6 Details forward stepping Comments with UE support 5 Details side stepping Comments with UE support, CGA 4 Details backward stepping Comments UE support CGA 3 Details weighshift with rotation Comments WBOS UE support PT-OP-T Assessment and Plan Start: 11/19/18 15:32 Freq: Status: Active Protocol: Document 01/31/19 10:30 AMB (Rec: 02/01/19 07:28 AMB [email or web address]) Physical Therapy Assessment Assessment Summary Assessment Heather continues to need near constant cues for safety with exercise, but is able to mirror them. Physical Therapy Plan Next Visit Focus/Plan Next Note Type Treatment Note Next Visit Plan balance and gait, transfer training
--- NOTE | 2019-02-03 15:38 | PT.OTN ---
Current Diagnoses Dementia in other diseases classified elsewhere without behavioral disturbance (02/03/19) Dementia with Lewy bodies (02/03/19) Physical Therapy Treatment Note PT-OP-A Visit Information Start: 11/19/18 15:32 Freq: Status: Active Protocol: Document 02/03/19 14:30 AMB (Rec: 02/03/19 14:42 AMB [id number]) Out-Patient Physical Therapy Visit Information Visit Information Visit Type Treatment Note Visit Start Time 14:30 Visit Stop Time 15:15 Total Visit Minutes 45 Visit Number 14 PT-OP-B Current Condition Start: 11/19/18 15:32 Freq: Status: Active Protocol: Document 11/19/18 11:15 RCC (Rec: 11/19/18 15:59 RCC [email or web address]) Current Condition History of Current Condition Onset Date balance worsening since returning from [place] 1-2 mos ago Current Complaints poor balance, falls, impaired gait tolerance History of Current Condition Pt is an 83 y/o male presenting to physical therapy with his , with speaking on behalf of the pt. She notes that pt had issues with his Parkinson's medication over the winter time while staying in [place], which caused him to fall and be hospitalized and do rehabilitation until his medication could be sorted out. This is now resolved. Pt 's reports that Heather was walking with her 30-45 min per day outdoors on level surfaces while in [place], but since coming home he has not tolerated walking much except short distances only up to ~10 min. Pt has had 2 falls in the past 6 months, most recent this past week when trying to walk in the back yard. No acute injury. Pt did have some R knee discomfort which now appears to be resolved as well. states that he requires physical assistance to get laying down into bed either flat or with a wedge, but can get supine to sit independently. They are remodeling their home so Heather can live on the main level, but still needs to manage stairs to get in/out of home. She would like to get a transport chair for Heather, as she feels a w/c is too heavy and would not fit into the bathroom of their home. Pt 's wants to improve his bed mobility, standing balance , and gait. He has a new diagnosis of Lewy body dementia without behavioral disturbance. PT-OP-C Subjective Start: 11/19/18 15:32 Freq: Status: Active Protocol: Document 02/03/19 14:30 AMB (Rec: 02/03/19 14:42 AMB [id number]) OP-PT Subjective Patient Comments Patient Comments Heather has not been doing his exercises as much because they have been walking about 30 minutes a day. PT-OP-E Functional Tests Start: 11/19/18 15:32 Freq: Status: Active Protocol: Document 12/17/18 14:30 RCC (Rec: 12/18/18 15:16 RCC [email or web address]) Functional Tests Timed Up and Go (TUG) Score 21.24 Comments avg of 3 trials PT-OP-G Mobility & Gait Start: 11/19/18 15:32 Freq: Status: Active Protocol: Document 11/19/18 11:15 RCC (Rec: 11/19/18 16:51 RCC [email or web address]) OP Mobility Evaluation Bed Mobility Supine to and from Sit sit to supine- mod assist ( requires assist for BLEs) supine to sit- indep. OP Gait Assessment Gait Gait Assistance Required: Standby Assistance Assistive Devices Assistive Device Gait Belt Gait Deviations General Gait Pattern Decreased Stride Length Decreased Feet Clearance Festinating Flexed Trunk Factors Limiting Gait Function Factors Limiting Gait Function Decreased Activity Tolerance Incoordination Poor Balance Poor Safety Awareness Stair Climbing Evaluation Comments Stair Climbing Comments occasional foot hitting higher step when descending with step-through and R rail PT-OP-Q Treatments Start: 11/19/18 15:32 Freq: Status: Active Protocol: Document 02/03/19 14:30 AMB (Rec: 02/03/19 15:38 AMB [email or web address]) Cardio Equipment Recumbent Elliptical (Biodex) Duration (Minutes) 10 Resistance 4 Therapeutic Exercises Sitting Exercises 2 Sitting Exercise Name Sit-stand Reps/Minutes x 10 reps x 2 sets Comments without UE support, SBA for safety 1 Sitting Exercise Name low sit to stand Comments with scooting legs for practice getting over a large log at the [place] Neuro Re-Education Treatment Balance Activities 9 Details forward, backward, side stepping Comments CGA firm surface, no resistance 8 Details slow march for single leg stance Comments hand hold assist PT-OP-T Assessment and Plan Start: 11/19/18 15:32 Freq: Status: Active Protocol: Document 02/03/19 14:30 AMB (Rec: 02/03/19 15:38 AMB [email or web address]) Physical Therapy Assessment Assessment Summary Assessment Heather did fall backwards at home with his yesterday. She looked away for a moment and he fell, so could not provide significant details as to what happened, he appeared uninjured. Physical Therapy Plan Next Visit Focus/Plan Next Note Type Treatment Note Next Visit Plan balance and gait, transfer training
--- NOTE | 2019-02-07 16:30 | PT.OPPOC ---
Current Diagnoses Dementia in other diseases classified elsewhere without behavioral disturbance (02/07/19) Dementia with Lewy bodies (02/07/19) Provider Visit Care Team Role Provider Type Ralph Lara MD Primary Care Provider Physician Specialty: Internal Medicine Address: [address] [place] [address], [id number] Email: Gigi Briceño MD Attending Provider Non-Staff Specialty: Internal Medicine Address: [address] [place] [address], [phone] Fax: Email: Plan Of Care PT-OP-T Assessment and Plan Start: 11/19/18 15:32 Freq: Status: Active Protocol: Document 02/07/19 13:38 AMB (Rec: 02/07/19 14:54 AMB [id number]) Physical Therapy Assessment Goals recreational activities Impairment pt only able to tolerate 10 min walking level surfaces Short Term Goal (STG) pt will be able to walk 20 min , 5 days per week outdoors on level surfaces with SBA STG Duration MET Detention Goal (LTG) pt will be able to walk 30 min , 5 days per week outdoors on level surfaces with SBA LTG Duration 12 weeks Falls Impairment 2 falls in past 6 months Detention Goal (LTG) Pt will remain without fall for 6 weeks or greater prior to d/c from physical therapy. 7/8: no falls yet LTG Duration 12 weeks Dynamic Gait Index Impairment 10/24 on Dynamic Gait Index Short Term Goal (STG) 14/24 on Dynamic Gait Index 7/ 8: not assessed today STG Duration 6 weeks Hat Body Sorter Goal (LTG) 17/24 or greater on Dynamic Gait Index LTG Duration 12 weeks Assessment Summary Assessment Heather has met one goal so far , but did have a recent fall at home and has not improved with the dynamic gait index. He is showing more freezing episodes. His is better able to help him at home with the work that we've been doing , and they are going on more walks, but he continues to be a high fall risk. He can walk with longer steps, but needs constant verbal cues. The focus of PT will be to continue to teach Lisseth how to best help Heather as his mobility declines so that she does not injure herself. Physical Therapy Plan Frequency and Duration Frequency of Treatment 2x/Week Duration of Treatment 8 weeks Plan of Care Start Date 02/07/19 Plan of Care End Date 04/04/19 Therapeutic Interventions Therapeutic Interventions Aquatic Therapy Balance Training Gait Training Home Exercise Program Manual Therapy Neuromuscular Re-education Patient/Caregiver Education Self-Care/Home Management Taping Therapeutic Activities Therapeutic Exercises Next Visit Focus/Plan Next Note Type Treatment Note Next Visit Plan Progress high level balance, further work on freezing episodes Plan of Care Dates Plan of Care Start Date 02/07/19 Plan of Care End Date 04/04/19 Please Sign and Return: I have reviewed this Plan of Care and certify that the skilled therapy services above are required to meet the patient?s needs. Physician Signature Date Printed Name and Credentials Clinical Instructor Signature Printed Name and Credentials
--- NOTE | 2019-02-07 16:30 | PT.OTN ---
Current Diagnoses Dementia in other diseases classified elsewhere without behavioral disturbance (02/07/19) Dementia with Lewy bodies (02/07/19) Physical Therapy Treatment Note PT-OP-A Visit Information Start: 11/19/18 15:32 Freq: Status: Active Protocol: Document 02/07/19 13:38 AMB (Rec: 02/07/19 14:54 AMB [id number]) Out-Patient Physical Therapy Visit Information Visit Information Visit Type Progress Note Visit Start Time 13:45 Visit Stop Time 14:30 Total Visit Minutes 45 Visit Number 15 PT-OP-B Current Condition Start: 11/19/18 15:32 Freq: Status: Active Protocol: Document 11/19/18 11:15 RCC (Rec: 11/19/18 15:59 RCC [email or web address]) Current Condition History of Current Condition Onset Date balance worsening since returning from [place] 1-2 mos ago Current Complaints poor balance, falls, impaired gait tolerance History of Current Condition Pt is an 83 y/o male presenting to physical therapy with his , with speaking on behalf of the pt. She notes that pt had issues with his Parkinson's medication over the winter time while staying in [place], which caused him to fall and be hospitalized and do rehabilitation until his medication could be sorted out. This is now resolved. Pt 's reports that Heather was walking with her 30-45 min per day outdoors on level surfaces while in [place], but since coming home he has not tolerated walking much except short distances only up to ~10 min. Pt has had 2 falls in the past 6 months, most recent this past week when trying to walk in the back yard. No acute injury. Pt did have some R knee discomfort which now appears to be resolved as well. states that he requires physical assistance to get laying down into bed either flat or with a wedge, but can get supine to sit independently. They are remodeling their home so Heather can live on the main level, but still needs to manage stairs to get in/out of home. She would like to get a transport chair for Heather, as she feels a w/c is too heavy and would not fit into the bathroom of their home. Pt 's wants to improve his bed mobility, standing balance , and gait. He has a new diagnosis of Lewy body dementia without behavioral disturbance. PT-OP-C Subjective Start: 11/19/18 15:32 Freq: Status: Active Protocol: Document 02/07/19 13:38 AMB (Rec: 02/07/19 14:54 AMB [id number]) OP-PT Subjective Patient Comments Patient Comments Heather's reports yesterday was a difficult day. He had a tough time getting out of his recliner, but today has been going well. PT-OP-E Functional Tests Start: 11/19/18 15:32 Freq: Status: Active Protocol: Document 02/07/19 13:45 AMB (Rec: 02/07/19 16:34 AMB [email or web address]) Functional Tests Dynamic Gait Index (DGI) Score 10 DGI Impairment Rating 40 to <60% Impaired (Score 10- 14) PT-OP-G Mobility & Gait Start: 11/19/18 15:32 Freq: Status: Active Protocol: Document 11/19/18 11:15 RCC (Rec: 11/19/18 16:51 RCC [email or web address]) OP Mobility Evaluation Bed Mobility Supine to and from Sit sit to supine- mod assist ( requires assist for BLEs) supine to sit- indep. OP Gait Assessment Gait Gait Assistance Required: Standby Assistance Assistive Devices Assistive Device Gait Belt Gait Deviations General Gait Pattern Decreased Stride Length Decreased Feet Clearance Festinating Flexed Trunk Factors Limiting Gait Function Factors Limiting Gait Function Decreased Activity Tolerance Incoordination Poor Balance Poor Safety Awareness Stair Climbing Evaluation Comments Stair Climbing Comments occasional foot hitting higher step when descending with step-through and R rail PT-OP-Q Treatments Start: 11/19/18 15:32 Freq: Status: Active Protocol: Document 02/07/19 13:45 AMB (Rec: 02/09/19 12:56 AMB [email or web address]) Cardio Equipment Recumbent Elliptical (Biodex) Duration (Minutes) 7 Resistance 5 Therapeutic Exercises Sitting Exercises 2 Sitting Exercise Name Sit-stand Reps/Minutes x 10 reps x 2 sets Comments without UE support, SBA for safety Neuro Re-Education Treatment Balance Activities 9 Details forward, backward, side stepping Comments CGA firm surface, no resistance 5 Details side stepping Comments with UE support, CGA 2 Details walking with headturns 1 Details stepping over hurdles Comments Jessenia to avoid balance loss PT-OP-T Assessment and Plan Start: 11/19/18 15:32 Freq: Status: Active Protocol: Document 02/07/19 13:38 AMB (Rec: 02/07/19 14:54 AMB [id number]) Physical Therapy Assessment Goals recreational activities Impairment pt only able to tolerate 10 min walking level surfaces Short Term Goal (STG) pt will be able to walk 20 min , 5 days per week outdoors on level surfaces with SBA STG Duration MET Shelter Goal (LTG) pt will be able to walk 30 min , 5 days per week outdoors on level surfaces with SBA LTG Duration 12 weeks Falls Impairment 2 falls in past 6 months Merchandise For Resale Purchasing Agent Goal (LTG) Pt will remain without fall for 6 weeks or greater prior to d/c from physical therapy. 01/17: no falls yet LTG Duration 12 weeks Dynamic Gait Index Impairment 10 on Dynamic Gait Index Short Term Goal (STG) 14 on Dynamic Gait Index 01/17: not assessed today STG Duration 6 weeks Merchandise For Res[employer] Purchasing Agent Goal (LTG) 1724 or greater on Dynamic Gait Index LTG Duration 12 weeks Assessment Summary Assessment Heather has met one goal so far , but did have a recent fall at home and has not improved with the dynamic gait index. He is showing more freezing episodes. His is better able to help him at home with the work that we've been doing , and they are going on more walks, but he continues to be a high fall risk. He can walk with longer steps, but needs constant verbal cues. The focus of PT will be to continue to teach Lisseth how to best help Heather as his mobility declines so that she does not injure herself. Physical Therapy Plan Frequency and Duration Frequency of Treatment 2x/Week Duration of Treatment 8 weeks Plan of Care Start Date 02/07/19 Plan of Care End Date 04/04/19 Therapeutic Interventions Therapeutic Interventions Aquatic Therapy Balance Training Gait Training Home Exercise Program Manual Therapy Neuromuscular Re-education Patient/Caregiver Education Self-Care/Home Management Taping Therapeutic Activities Therapeutic Exercises Next Visit Focus/Plan Next Note Type Treatment Note Next Visit Plan Progress high level balance, further work on freezing episodes
--- NOTE | 2019-02-14 16:43 | PT.OTN ---
Current Diagnoses Dementia in other diseases classified elsewhere without behavioral disturbance (02/14/19) Dementia with Lewy bodies (02/14/19) Physical Therapy Treatment Note PT-OP-A Visit Information Start: 11/19/18 15:32 Freq: Status: Active Protocol: Document 02/14/19 13:00 AMB (Rec: 02/14/19 13:15 AMB [id number]) Out-Patient Physical Therapy Visit Information Visit Information Visit Type Treatment Note Visit Start Time 13:00 Visit Stop Time 13:45 Total Visit Minutes 45 Visit Number 16 PT-OP-B Current Condition Start: 11/19/18 15:32 Freq: Status: Active Protocol: Document 11/19/18 11:15 RCC (Rec: 11/19/18 15:59 RCC [email or web address]) Current Condition History of Current Condition Onset Date balance worsening since returning from [place] 1-2 mos ago Current Complaints poor balance, falls, impaired gait tolerance History of Current Condition Pt is an 83 y/o male presenting to physical therapy with his , with speaking on behalf of the pt. She notes that pt had issues with his Parkinson's medication over the winter time while staying in [place], which caused him to fall and be hospitalized and do rehabilitation until his medication could be sorted out. This is now resolved. Pt 's reports that Heather was walking with her 30-45 min per day outdoors on level surfaces while in [place], but since coming home he has not tolerated walking much except short distances only up to ~10 min. Pt has had 2 falls in the past 6 months, most recent this past week when trying to walk in the back yard. No acute injury. Pt did have some R knee discomfort which now appears to be resolved as well. states that he requires physical assistance to get laying down into bed either flat or with a wedge, but can get supine to sit independently. They are remodeling their home so Heather can live on the main level, but still needs to manage stairs to get in/out of home. She would like to get a transport chair for Heather, as she feels a w/c is too heavy and would not fit into the bathroom of their home. Pt 's wants to improve his bed mobility, standing balance , and gait. He has a new diagnosis of Lewy body dementia without behavioral disturbance. PT-OP-C Subjective Start: 11/19/18 15:32 Freq: Status: Active Protocol: Document 02/14/19 13:00 AMB (Rec: 02/14/19 16:38 AMB [email or web address]) OP-PT Subjective Patient Comments Patient Comments Heather's states she has some questions about how to deal with his freezing. PT-OP-E Functional Tests Start: 11/19/18 15:32 Freq: Status: Active Protocol: Document 02/07/19 13:45 AMB (Rec: 02/07/19 16:34 AMB [email or web address]) Functional Tests Dynamic Gait Index (DGI) Score 10 DGI Impairment Rating 40 to <60% Impaired (Score 10- 14) PT-OP-G Mobility & Gait Start: 11/19/18 15:32 Freq: Status: Active Protocol: Document 11/19/18 11:15 RCC (Rec: 11/19/18 16:51 RCC [email or web address]) OP Mobility Evaluation Bed Mobility Supine to and from Sit sit to supine- mod assist ( requires assist for BLEs) supine to sit- indep. OP Gait Assessment Gait Gait Assistance Required: Standby Assistance Assistive Devices Assistive Device Gait Belt Gait Deviations General Gait Pattern Decreased Stride Length Decreased Feet Clearance Festinating Flexed Trunk Factors Limiting Gait Function Factors Limiting Gait Function Decreased Activity Tolerance Incoordination Poor Balance Poor Safety Awareness Stair Climbing Evaluation Comments Stair Climbing Comments occasional foot hitting higher step when descending with step-through and R rail PT-OP-Q Treatments Start: 11/19/18 15:32 Freq: Status: Active Protocol: Document 02/14/19 13:00 AMB (Rec: 02/14/19 16:38 AMB [email or web address]) Cardio Equipment Recumbent Elliptical (Biodex) Duration (Minutes) 8 Resistance 5 Neuro Re-Education Treatment Balance Activities 9 Details forward, backward, side stepping Comments CGA firm surface, no resistance 5 Details side stepping Comments with UE support, CGA 1 Details stepping over colors Comments on carpet trying to walk with one foot to a color block instead of hurdles PT-OP-T Assessment and Plan Start: 11/19/18 15:32 Freq: Status: Active Protocol: Document 02/14/19 13:00 AMB (Rec: 02/14/19 13:15 AMB [id number]) Physical Therapy Assessment Assessment Summary Assessment Worked on taking longer steps but with color changes in carpet to work on freezing. This was difficult, but did instruct in different ways to help. Color changes were still challenging, so likely would not use hurdles again until Montee progresses. Physical Therapy Plan Next Visit Focus/Plan Next Note Type Treatment Note Next Visit Plan Progress high level balance, further work on freezing episodes
--- NOTE | 2019-02-21 16:00 | PT.OTN ---
Current Diagnoses Dementia in other diseases classified elsewhere without behavioral disturbance (02/21/19) Dementia with Lewy bodies (02/21/19) Physical Therapy Treatment Note PT-OP-A Visit Information Start: 11/19/18 15:32 Freq: Status: Active Protocol: Document 02/21/19 13:00 AMB (Rec: 02/21/19 16:01 AMB [email or web address]) Out-Patient Physical Therapy Visit Information Visit Information Visit Type Treatment Note Visit Start Time 13:00 Visit Stop Time 13:45 Total Visit Minutes 45 Visit Number 17 PT-OP-B Current Condition Start: 11/19/18 15:32 Freq: Status: Active Protocol: Document 11/19/18 11:15 RCC (Rec: 11/19/18 15:59 RCC [email or web address]) Current Condition History of Current Condition Onset Date balance worsening since returning from [place] 1-2 mos ago Current Complaints poor balance, falls, impaired gait tolerance History of Current Condition Pt is an 83 y/o male presenting to physical therapy with his , with speaking on behalf of the pt. She notes that pt had issues with his Parkinson's medication over the winter time while staying in [place], which caused him to fall and be hospitalized and do rehabilitation until his medication could be sorted out. This is now resolved. Pt 's reports that Heather was walking with her 30-45 min per day outdoors on level surfaces while in [place], but since coming home he has not tolerated walking much except short distances only up to ~10 min. Pt has had 2 falls in the past 6 months, most recent this past week when trying to walk in the back yard. No acute injury. Pt did have some R knee discomfort which now appears to be resolved as well. states that he requires physical assistance to get laying down into bed either flat or with a wedge, but can get supine to sit independently. They are remodeling their home so Heather can live on the main level, but still needs to manage stairs to get in/out of home. She would like to get a transport chair for Heather, as she feels a w/c is too heavy and would not fit into the bathroom of their home. Pt 's wants to improve his bed mobility, standing balance , and gait. He has a new diagnosis of Lewy body dementia without behavioral disturbance. PT-OP-C Subjective Start: 11/19/18 15:32 Freq: Status: Active Protocol: Document 02/21/19 13:00 AMB (Rec: 02/21/19 16:01 AMB [email or web address]) OP-PT Subjective Patient Comments Patient Comments Heather had a fall last week in the shower. He was standing up from his shower chair, but then lost his balance backwards and his couldn' t catch him. It was a slow fall and he did not injure himself per her report. He was able to scoot out of the bathroom, as there wasn't enough room to patient admitting clerk the bathroom, but by the time he scooted into the hallway, he was too fatigued to stand and his had to call their grandson. PT-OP-E Functional Tests Start: 11/19/18 15:32 Freq: Status: Active Protocol: Document 02/07/19 13:45 AMB (Rec: 02/07/19 16:34 AMB [email or web address]) Functional Tests Dynamic Gait Index (DGI) Score 10 DGI Impairment Rating 40 to <60% Impaired (Score 10- 14) PT-OP-G Mobility & Gait Start: 11/19/18 15:32 Freq: Status: Active Protocol: Document 11/19/18 11:15 RCC (Rec: 11/19/18 16:51 RCC [email or web address]) OP Mobility Evaluation Bed Mobility Supine to and from Sit sit to supine- mod assist ( requires assist for BLEs) supine to sit- indep. OP Gait Assessment Gait Gait Assistance Required: Standby Assistance Assistive Devices Assistive Device Gait Belt Gait Deviations General Gait Pattern Decreased Stride Length Decreased Feet Clearance Festinating Flexed Trunk Factors Limiting Gait Function Factors Limiting Gait Function Decreased Activity Tolerance Incoordination Poor Balance Poor Safety Awareness Stair Climbing Evaluation Comments Stair Climbing Comments occasional foot hitting higher step when descending with step-through and R rail PT-OP-Q Treatments Start: 11/19/18 15:32 Freq: Status: Active Protocol: Document 02/21/19 13:00 AMB (Rec: 02/22/19 07:21 AMB [email or web address]) Cardio Equipment Recumbent Elliptical (Biodex) Duration (Minutes) 8 Resistance 4 Therapeutic Activity Therapeutic Activity 4 Name supine to quadruped Reps/Minutes ModA Comments with instruction for in how to cue and safely physically assist 3 Name sit to stand Reps/Minutes 12 Comments pt continues to require cueing for foot placement PT-OP-T Assessment and Plan Start: 11/19/18 15:32 Freq: Status: Active Protocol: Document 02/21/19 13:00 AMB (Rec: 02/21/19 16:01 AMB [email or web address]) Physical Therapy Assessment Assessment Summary Assessment Heather had pain with kneeling getting from supine to quadruped. Needed assist but instructed how to help him. Also suggested 4WW for community ambulation. Physical Therapy Plan Next Visit Focus/Plan Next Note Type Treatment Note Next Visit Plan Heather's is a great help to him, but continues to benefit from education as his condition changes.
--- NOTE | 2019-02-24 11:45 | PT.OTN ---
Current Diagnoses Dementia in other diseases classified elsewhere without behavioral disturbance (02/24/19) Dementia with Lewy bodies (02/24/19) Physical Therapy Treatment Note PT-OP-A Visit Information Start: 11/19/18 15:32 Freq: Status: Active Protocol: Document 02/24/19 10:30 AMB (Rec: 02/24/19 11:33 AMB [email or web address]) Out-Patient Physical Therapy Visit Information Visit Information Visit Type Treatment Note Visit Start Time 10:30 Visit Stop Time 11:15 Total Visit Minutes 45 Visit Number 18 PT-OP-B Current Condition Start: 11/19/18 15:32 Freq: Status: Active Protocol: Document 11/19/18 11:15 RCC (Rec: 11/19/18 15:59 RCC [email or web address]) Current Condition History of Current Condition Onset Date balance worsening since returning from [place] 1-2 mos ago Current Complaints poor balance, falls, impaired gait tolerance History of Current Condition Pt is an 83 y/o male presenting to physical therapy with his , with speaking on behalf of the pt. She notes that pt had issues with his Parkinson's medication over the winter time while staying in [place], which caused him to fall and be hospitalized and do rehabilitation until his medication could be sorted out. This is now resolved. Pt 's reports that Heather was walking with her 30-45 min per day outdoors on level surfaces while in [place], but since coming home he has not tolerated walking much except short distances only up to ~10 min. Pt has had 2 falls in the past 6 months, most recent this past week when trying to walk in the back yard. No acute injury. Pt did have some R knee discomfort which now appears to be resolved as well. states that he requires physical assistance to get laying down into bed either flat or with a wedge, but can get supine to sit independently. They are remodeling their home so Heather can live on the main level, but still needs to manage stairs to get in/out of home. She would like to get a transport chair for Heather, as she feels a w/c is too heavy and would not fit into the bathroom of their home. Pt 's wants to improve his bed mobility, standing balance , and gait. He has a new diagnosis of Lewy body dementia without behavioral disturbance. PT-OP-C Subjective Start: 11/19/18 15:32 Freq: Status: Active Protocol: Document 02/24/19 10:30 AMB (Rec: 02/24/19 11:33 AMB [email or web address]) OP-PT Subjective Patient Comments Patient Comments Heather had a difficult time getting up this morning,but is doing better now. PT-OP-E Functional Tests Start: 11/19/18 15:32 Freq: Status: Active Protocol: Document 02/07/19 13:45 AMB (Rec: 02/07/19 16:34 AMB [email or web address]) Functional Tests Dynamic Gait Index (DGI) Score 10 DGI Impairment Rating 40 to <60% Impaired (Score 10- 14) PT-OP-G Mobility & Gait Start: 11/19/18 15:32 Freq: Status: Active Protocol: Document 11/19/18 11:15 RCC (Rec: 11/19/18 16:51 RCC [email or web address]) OP Mobility Evaluation Bed Mobility Supine to and from Sit sit to supine- mod assist ( requires assist for BLEs) supine to sit- indep. OP Gait Assessment Gait Gait Assistance Required: Standby Assistance Assistive Devices Assistive Device Gait Belt Gait Deviations General Gait Pattern Decreased Stride Length Decreased Feet Clearance Festinating Flexed Trunk Factors Limiting Gait Function Factors Limiting Gait Function Decreased Activity Tolerance Incoordination Poor Balance Poor Safety Awareness Stair Climbing Evaluation Comments Stair Climbing Comments occasional foot hitting higher step when descending with step-through and R rail PT-OP-Q Treatments Start: 11/19/18 15:32 Freq: Status: Active Protocol: Document 02/24/19 10:30 AMB (Rec: 02/24/19 11:45 AMB [email or web address]) Therapeutic Activity Therapeutic Activity 4 Name turning without freezing Reps/Minutes 12 min Comments walk and turn to sit down with longer steps 3 Name sit to stand Reps/Minutes 12 Comments pt continues to require cueing for foot placement Gait Training Gait Activity arm swing Description long steps and armswing Device Used none Level of Assistance CGA Comments smooth surface 3 Description stairs Device Used B rails Level of Assistance CGA Comments cueing for correct foot placement Neuro Re-Education Treatment Balance Activities 9 Details forward, backward, side stepping Comments CGA firm surface, no resistance 5 Details side stepping Comments with UE support, CGA 1 Details stepping over colors Comments on carpet trying to walk with one foot to a color block instead of hurdles- forward and side to side PT-OP-T Assessment and Plan Start: 11/19/18 15:32 Freq: Status: Active Protocol: Document 02/24/19 10:30 AMB (Rec: 02/24/19 11:45 AMB [email or web address]) Physical Therapy Assessment Assessment Summary Assessment Heather did well with stairs, but needs near constant cueing for safety Physical Therapy Plan Next Visit Focus/Plan Next Note Type Treatment Note Next Visit Plan Continue to work on safety with stairs, transfers, gait
--- NOTE | 2019-03-03 13:00 | PT.OTN ---
Current Diagnoses Dementia in other diseases classified elsewhere without behavioral disturbance (03/03/19) Dementia with Lewy bodies (03/03/19) Physical Therapy Treatment Note PT-OP-A Visit Information Start: 11/19/18 15:32 Freq: Status: Active Protocol: Document 03/03/19 13:00 AMB (Rec: 03/03/19 13:12 AMB [id number]) Out-Patient Physical Therapy Visit Information Visit Information Visit Type Treatment Note Visit Start Time 13:00 Visit Stop Time 13:45 Total Visit Minutes 45 Visit Number 19 PT-OP-B Current Condition Start: 11/19/18 15:32 Freq: Status: Active Protocol: Document 11/19/18 11:15 RCC (Rec: 11/19/18 15:59 RCC [email or web address]) Current Condition History of Current Condition Onset Date balance worsening since returning from [place] 1-2 mos ago Current Complaints poor balance, falls, impaired gait tolerance History of Current Condition Pt is an 83 y/o male presenting to physical therapy with his , with speaking on behalf of the pt. She notes that pt had issues with his Parkinson's medication over the winter time while staying in [place], which caused him to fall and be hospitalized and do rehabilitation until his medication could be sorted out. This is now resolved. Pt 's reports that Heather was walking with her 30-45 min per day outdoors on level surfaces while in [place], but since coming home he has not tolerated walking much except short distances only up to ~10 min. Pt has had 2 falls in the past 6 months, most recent this past week when trying to walk in the back yard. No acute injury. Pt did have some R knee discomfort which now appears to be resolved as well. states that he requires physical assistance to get laying down into bed either flat or with a wedge, but can get supine to sit independently. They are remodeling their home so Heather can live on the main level, but still needs to manage stairs to get in/out of home. She would like to get a transport chair for Heather, as she feels a w/c is too heavy and would not fit into the bathroom of their home. Pt 's wants to improve his bed mobility, standing balance , and gait. He has a new diagnosis of Lewy body dementia without behavioral disturbance. PT-OP-C Subjective Start: 11/19/18 15:32 Freq: Status: Active Protocol: Document 03/03/19 13:00 AMB (Rec: 03/03/19 13:12 AMB [email or web address]) OP-PT Subjective Patient Comments Patient Comments Heather is doing well with daily walks. PT-OP-E Functional Tests Start: 11/19/18 15:32 Freq: Status: Active Protocol: Document 02/07/19 13:45 AMB (Rec: 02/07/19 16:34 AMB [email or web address]) Functional Tests Dynamic Gait Index (DGI) Score 10 DGI Impairment Rating 40 to <60% Impaired (Score 10- 14) PT-OP-G Mobility & Gait Start: 11/19/18 15:32 Freq: Status: Active Protocol: Document 11/19/18 11:15 RCC (Rec: 11/19/18 16:51 RCC [email or web address]) OP Mobility Evaluation Bed Mobility Supine to and from Sit sit to supine- mod assist ( requires assist for BLEs) supine to sit- indep. OP Gait Assessment Gait Gait Assistance Required: Standby Assistance Assistive Devices Assistive Device Gait Belt Gait Deviations General Gait Pattern Decreased Stride Length Decreased Feet Clearance Festinating Flexed Trunk Factors Limiting Gait Function Factors Limiting Gait Function Decreased Activity Tolerance Incoordination Poor Balance Poor Safety Awareness Stair Climbing Evaluation Comments Stair Climbing Comments occasional foot hitting higher step when descending with step-through and R rail PT-OP-Q Treatments Start: 11/19/18 15:32 Freq: Status: Active Protocol: Document 03/03/19 13:00 AMB (Rec: 03/06/19 09:20 AMB [email or web address]) Cardio Equipment Recumbent Elliptical (Biodex) Duration (Minutes) 8 Resistance 4 Therapeutic Exercises Supine Exercises 4 Supine Exercise Name piriformis stretch Comments 30x2 3 Supine Exercise Name hip flexor stretch Reps/Minutes 30x2 2 Supine Exercise Name SKTC Comments 30x2 1 Supine Exercise Name hamstring stretch Comments 30x2 Sitting Exercises 2 Sitting Exercise Name Sit-stand Reps/Minutes x 10 reps x 2 sets Comments without UE support, SBA for safety Neuro Re-Education Treatment Balance Activities 10 Details static standing without UE support Comments focus on posture- pt tends to want handhold support from his , tends to fall posteriorly, needed Jessenia to keep from LOBx3 PT-OP-T Assessment and Plan Start: 11/19/18 15:32 Freq: Status: Active Protocol: Document 03/03/19 13:00 AMB (Rec: 03/06/19 09:20 AMB [email or web address]) Physical Therapy Assessment Assessment Summary Assessment Instructed Lisseth in a stretching HEP as Montee's stiffness continues to progress. Physical Therapy Plan Next Visit Focus/Plan Next Note Type Treatment Note Next Visit Plan Continue to work on safety with stairs, transfers, gait
--- NOTE | 2019-03-07 16:09 | PT.OTN ---
Current Diagnoses Dementia in other diseases classified elsewhere without behavioral disturbance (03/07/19) Dementia with Lewy bodies (03/07/19) Physical Therapy Treatment Note PT-OP-A Visit Information Start: 11/19/18 15:32 Freq: Status: Active Protocol: Document 03/07/19 13:00 AMB (Rec: 03/07/19 13:10 AMB [id number]) Out-Patient Physical Therapy Visit Information Visit Information Visit Type Treatment Note Visit Start Time 13:00 Visit Stop Time 13:45 Total Visit Minutes 45 Visit Number 20 PT-OP-B Current Condition Start: 11/19/18 15:32 Freq: Status: Active Protocol: Document 11/19/18 11:15 RCC (Rec: 11/19/18 15:59 [facility] [email or web address]) Current Condition History of Current Condition Onset Date balance worsening since returning from [place] 1-2 mos ago Current Complaints poor balance, falls, impaired gait tolerance History of Current Condition Pt is an 83 y/o male presenting to physical therapy with his , with speaking on behalf of the pt. She notes that pt had issues with his Parkinson's medication over the winter time while staying in [place], which caused him to fall and be hospitalized and do rehabilitation until his medication could be sorted out. This is now resolved. Pt 's reports that Heather was walking with her 30-45 min per day outdoors on level surfaces while in [place], but since coming home he has not tolerated walking much except short distances only up to ~10 min. Pt has had 2 falls in the past 6 months, most recent this past week when trying to walk in the back yard. No acute injury. Pt did have some R knee discomfort which now appears to be resolved as well. states that he requires physical assistance to get laying down into bed either flat or with a wedge, but can get supine to sit independently. They are remodeling their home so Heather can live on the main level, but still needs to manage stairs to get in/out of home. She would like to get a transport chair for Heather, as she feels a w/c is too heavy and would not fit into the bathroom of their home. Pt 's wants to improve his bed mobility, standing balance , and gait. He has a new diagnosis of Lewy body dementia without behavioral disturbance. PT-OP-C Subjective Start: 11/19/18 15:32 Freq: Status: Active Protocol: Document 03/07/19 13:00 AMB (Rec: 03/07/19 13:10 AMB [id number]) OP-PT Subjective Patient Comments Patient Comments Heather's states that they are doing well. He has been walking with his a bit and that has gone well. PT-OP-E Functional Tests Start: 11/19/18 15:32 Freq: Status: Active Protocol: Document 02/07/19 13:45 AMB (Rec: 02/07/19 16:34 AMB [email or web address]) Functional Tests Dynamic Gait Index (DGI) Score 10 DGI Impairment Rating 40 to <60% Impaired (Score 10- 14) PT-OP-G Mobility & Gait Start: 11/19/18 15:32 Freq: Status: Active Protocol: Document 11/19/18 11:15 RCC (Rec: 11/19/18 16:51 RCC [email or web address]) OP Mobility Evaluation Bed Mobility Supine to and from Sit sit to supine- mod assist ( requires assist for BLEs) supine to sit- indep. OP Gait Assessment Gait Gait Assistance Required: Standby Assistance Assistive Devices Assistive Device Gait Belt Gait Deviations General Gait Pattern Decreased Stride Length Decreased Feet Clearance Festinating Flexed Trunk Factors Limiting Gait Function Factors Limiting Gait Function Decreased Activity Tolerance Incoordination Poor Balance Poor Safety Awareness Stair Climbing Evaluation Comments Stair Climbing Comments occasional foot hitting higher step when descending with step-through and R rail PT-OP-Q Treatments Start: 11/19/18 15:32 Freq: Status: Active Protocol: Document 03/07/19 13:00 AMB (Rec: 03/07/19 16:09 AMB [email or web address]) Cardio Equipment Recumbent Elliptical (Biodex) Duration (Minutes) 7 Resistance 5 Therapeutic Exercises Supine Exercises 4 Supine Exercise Name piriformis stretch Comments 30x2 3 Supine Exercise Name hip flexor stretch Reps/Minutes 30x2 1 Supine Exercise Name hamstring stretch Comments 30x2 Sitting Exercises 2 Sitting Exercise Name Sit-stand Reps/Minutes x 10 reps x 2 sets Comments without UE support, SBA for safety Gait Training Gait Activity arm swing Description long steps and armswing Device Used none Level of Assistance CGA Comments smooth surface Neuro Re-Education Treatment Balance Activities 10 Details static standing without UE support Comments focus on posture- pt tends to want handhold support from his , tends to fall posteriorly, needed Jessenia to keep from LOBx3 9 Details forward, backward, side stepping Comments CGA firm surface, no resistance, no UE support PT-OP-T Assessment and Plan Start: 11/19/18 15:32 Freq: Status: Active Protocol: Document 03/07/19 13:00 AMB (Rec: 03/07/19 13:50 AMB [email or web address]) Physical Therapy Assessment Assessment Summary Assessment Reviewed stretching program, Heather tolerated therapy well without rest breaks, today. Showed more energy, but continues to need cues for safety. Physical Therapy Plan Next Visit Focus/Plan Next Note Type Treatment Note Next Visit Plan Progress safety with stairs, gait, sit to stand with focus on instructing Lisseth on how to help Heathre the most.
--- NOTE | 2019-03-22 18:07 | PT.OTN ---
Current Diagnoses Dementia in other diseases classified elsewhere without behavioral disturbance (03/22/19) Dementia with Lewy bodies (03/22/19) Physical Therapy Treatment Note PT-OP-A Visit Information Start: 11/19/18 15:32 Freq: Status: Active Protocol: Document 03/22/19 16:07 [facility] (Rec: 03/22/19 18:07 [facility] [id number]) Out-Patient Physical Therapy Visit Information Visit Information Visit Type Treatment Note Visit Start Time 16:04 Visit Stop Time 16:45 Total Visit Minutes 41 Visit Number 21 PT-OP-B Current Condition Start: 11/19/18 15:32 Freq: Status: Active Protocol: Document 11/19/18 11:15 RCC (Rec: 11/19/18 15:59 RCC [email or web address]) Current Condition History of Current Condition Onset Date balance worsening since returning from [place] 1-2 mos ago Current Complaints poor balance, falls, impaired gait tolerance History of Current Condition Pt is an 83 y/o male presenting to physical therapy with his , with speaking on behalf of the pt. She notes that pt had issues with his Parkinson's medication over the winter time while staying in [place], which caused him to fall and be hospitalized and do rehabilitation until his medication could be sorted out. This is now resolved. Pt 's reports that Heather was walking with her 30-45 min per day outdoors on level surfaces while in [place], but since coming home he has not tolerated walking much except short distances only up to ~10 min. Pt has had 2 falls in the past 6 months, most recent this past week when trying to walk in the back yard. No acute injury. Pt did have some R knee discomfort which now appears to be resolved as well. states that he requires physical assistance to get laying down into bed either flat or with a wedge, but can get supine to sit independently. They are remodeling their home so Heather can live on the main level, but still needs to manage stairs to get in/out of home. She would like to get a transport chair for Heather, as she feels a w/c is too heavy and would not fit into the bathroom of their home. Pt 's wants to improve his bed mobility, standing balance , and gait. He has a new diagnosis of Lewy body dementia without behavioral disturbance. PT-OP-C Subjective Start: 11/19/18 15:32 Freq: Status: Active Protocol: Document 03/22/19 16:07 [facility] (Rec: 03/22/19 18:07 [facility] [id number]) OP-PT Subjective Patient Comments Patient Comments Pt fell when turning in the front yard to go out for his birthday. Son in law helped in get standing. Pt c/o of elbow R pain and B Knee pain but he is no longer c/o pain. notes pt felt dizzy when getting into car today. Reports they are doing pretty well at home and both pt and her say they want to work on balance PT-OP-E Functional Tests Start: 11/19/18 15:32 Freq: Status: Active Protocol: Document 02/07/19 13:45 AMB (Rec: 02/07/19 16:34 AMB [email or web address]) Functional Tests Dynamic Gait Index (DGI) Score 10 DGI Impairment Rating 40 to <60% Impaired (Score 10- 14) PT-OP-G Mobility & Gait Start: 11/19/18 15:32 Freq: Status: Active Protocol: Document 11/19/18 11:15 RCC (Rec: 11/19/18 16:51 RCC [email or web address]) OP Mobility Evaluation Bed Mobility Supine to and from Sit sit to supine- mod assist ( requires assist for BLEs) supine to sit- indep. OP Gait Assessment Gait Gait Assistance Required: Standby Assistance Assistive Devices Assistive Device Gait Belt Gait Deviations General Gait Pattern Decreased Stride Length, Decreased Feet Clearance, Festinating,Flexed Trunk Factors Limiting Gait Function Factors Limiting Gait Function Decreased Activity Tolerance, Incoordination,Poor Balance, Poor Safety Awareness Stair Climbing Evaluation Comments Stair Climbing Comments occasional foot hitting higher step when descending with step-through and R rail PT-OP-Q Treatments Start: 11/19/18 15:32 Freq: Status: Active Protocol: Document 03/22/19 16:07 [facility] (Rec: 03/22/19 18:07 [facility] [id number]) Cardio Equipment Recumbent Elliptical (Biodex) Duration (Minutes) 8 Resistance 5 Therapeutic Exercises Standing Exercises 6 Standing Exercise Name sit<>stands with significant cueing Reps/Minutes 2x10 Comments mix of using and not using hands Neuro Re-Education Treatment Balance Activities 10 Details static standing without UE support Comments focus on posture-WBOS & NBOS & staggered stance while hitting balloon 9 Details forward, backward, side stepping Reps/Duration 2x20ft ea Comments CGA firm surface, no resistance, no UE support Self-Care/Home Management Treatment Education Other Education Monitor symptoms-not walking if pt feels dizzy; BP after stepper when info was given 138/70; Checked again later when pt c/o dizziness 146/74 and again at end when pt c/o dizziness but pointed to abdomen BP was 148/72- notes pt c/o dizziness is common but instructed to monitor pt. Discussed pt doing sit to stands at home PT-OP-T Assessment and Plan Start: 11/19/18 15:32 Freq: Status: Active Protocol: Document 03/22/19 16:07 [facility] (Rec: 03/22/19 18:07 [facility] [id number]) Physical Therapy Assessment Assessment Summary Assessment Pt did well with sit to stands today and balance exercises but had to be cued to not use rail or reach for support. He nees constant cueing for posture. He reported dizziness but BP WNL and HR about 78 and O2 98% so just instructed to monitor pt. Physical Therapy Plan Next Visit Focus/Plan Next Note Type Treatment Note Next Visit Plan Progress safety with stairs, gait, sit to stand with focus on instructing Lisseth on how to help Montee the most.
--- NOTE | 2019-05-23 07:55 | PT.OPDS ---
Current Diagnoses Dementia in other diseases classified elsewhere without behavioral disturbance (03/22/19) Dementia with Lewy bodies (03/22/19) Visit Care Team Role Provider Type Ralph Lara MD Primary Care Provider Physician Specialty: Internal Medicine Address: [address] [place] [address], [phone] Email: [email or web address] Gigi Briceño MD Attending Provider Non-Staff Specialty: Internal Medicine Address: [address] [place] [address], [phone] Fax: Email: Visit Number Visit Number 21 Discharge Summary PT-OP-B Current Condition Start: 11/19/18 15:32 Freq: Status: Active Protocol: Document 11/19/18 11:15 RCC (Rec: 11/19/18 15:59 RCC [email or web address]) Current Condition History of Current Condition Onset Date balance worsening since returning from [place] 1-2 mos ago Current Complaints poor balance, falls, impaired gait tolerance History of Current Condition Pt is an 83 y/o male presenting to physical therapy with his , with speaking on behalf of the pt. She notes that pt had issues with his Parkinson's medication over the winter time while staying in [place], which caused him to fall and be hospitalized and do rehabilitation until his medication could be sorted out. This is now resolved. Pt 's reports that Heather was walking with her 30-45 min per day outdoors on level surfaces while in [place], but since coming home he has not tolerated walking much except short distances only up to ~10 min. Pt has had 2 falls in the past 6 months, most recent this past week when trying to walk in the back yard. No acute injury. Pt did have some R knee discomfort which now appears to be resolved as well. states that he requires physical assistance to get laying down into bed either flat or with a wedge, but can get supine to sit independently. They are remodeling their home so Heather can live on the main level, but still needs to manage stairs to get in/out of home. She would like to get a transport chair for Heather, as she feels a w/c is too heavy and would not fit into the bathroom of their home. Pt 's wants to improve his bed mobility, standing balance , and gait. He has a new diagnosis of Lewy body dementia without behavioral disturbance. PT-OP-C Subjective Start: 11/19/18 15:32 Freq: Status: Active Protocol: Document 03/22/19 16:07 [facility] (Rec: 03/22/19 18:07 [facility] [id number]) OP-PT Subjective Patient Comments Patient Comments Pt fell when turning in the front yard to go out for his birthday. Son in law helped in get standing. Pt c/o of elbow R pain and B Knee pain but he is no longer c/o pain. notes pt felt dizzy when getting into car today. Reports they are doing pretty well at home and both pt and her say they want to work on balance PT-OP-E Functional Tests Start: 11/19/18 15:32 Freq: Status: Active Protocol: Document 02/07/19 13:45 AMB (Rec: 02/07/19 16:34 AMB [email or web address]) Functional Tests Dynamic Gait Index (DGI) Score 10 DGI Impairment Rating 40 to <60% Impaired (Score 10- 14) PT-OP-G Mobility & Gait Start: 11/19/18 15:32 Freq: Status: Active Protocol: Document 11/19/18 11:15 [facility] (Rec: 11/19/18 16:51 RCC [email or web address]) OP Mobility Evaluation Bed Mobility Supine to and from Sit sit to supine- mod assist ( requires assist for BLEs) supine to sit- indep. OP Gait Assessment Gait Gait Assistance Required: Standby Assistance Assistive Devices Assistive Device Gait Belt Gait Deviations General Gait Pattern Decreased Stride Length, Decreased Feet Clearance, Festinating,Flexed Trunk Factors Limiting Gait Function Factors Limiting Gait Function Decreased Activity Tolerance, Incoordination,Poor Balance, Poor Safety Awareness Stair Climbing Evaluation Comments Stair Climbing Comments occasional foot hitting higher step when descending with step-through and R rail PT-OP-T Assessment and Plan Start: 11/19/18 15:32 Freq: Status: Active Protocol: Document 05/23/19 07:50 AMB (Rec: 05/23/19 07:53 AMB [email or web address]) Physical Therapy Assessment Goals recreational activities Impairment pt only able to tolerate 10 min walking level surfaces Short Term Goal (STG) pt will be able to walk 20 min , 5 days per week outdoors on level surfaces with SBA STG Duration MET Longterm Goal (LTG) pt will be able to walk 30 min , 5 days per week outdoors on level surfaces with SBA LTG Duration 12 weeks Falls Impairment 2 falls in past 6 months Longterm Goal (LTG) Pt will remain without fall for 6 weeks or greater prior to d/c from physical therapy. LTG Duration NOT MET Dynamic Gait Index Impairment 10 on Dynamic Gait Index Short Term Goal (STG) on Dynamic Gait Index 01/17: not assessed today STG Duration NOT MET Longterm Goal (LTG) 17 or greater on Dynamic Gait Index LTG Duration 12 weeks Assessment Summary Assessment At his last visit, Heather did well with sit to stands and balance exercises, but had difficulty at home following that. He continued to have difficulty at home, having a few falls, and his had difficulty bringing him in to PT. This PT called his PCP to discuss home health vs hospice per his 's request . The patient has not been seen since March 22 and is discharged at this time due to having a medical decline. Physical Therapy Plan Discharge Physical Therapy Discharge Reasons Change in Medical Status
== END 2019-03-22 17:00 ==
LOC: PHYS 16:00
PROVIDERS: PCP Student in an Organized Health Care Education/Training Program; Visit Provider Psychiatry & Neurology Neurology
DX: G31.83 Neurocognitive disorder with Lewy bodies (principal); F02.80 Dementia in other diseases classified elsewhere, unspecified severity, without behavioral disturbance, psychotic disturbance, mood disturbance, and anxiety
CPT/HCPCS: 97110; 97112; 97116; 97162; 97530; 97535

== ENCOUNTER → 2019-04-08 14:23 | Outpatient (CLI) | payer MEDICARE, SELFPAY | PROVIDERS: PCP Student in an Organized Health Care Education/Training Program; Visit Provider Psychiatry & Neurology Neurology | DX: G20 Parkinson's disease (principal) | CPT/HCPCS: 36415 ==